=== PATIENT | female | born 1940 | race Two or more races ===

== ENCOUNTER 2019-07-24 17:30 | Inpatient (IN) | payer MEDICAID ==
[~2019-07-24] VITALS: Ht 167.6 cm; Wt 62.2 kg
--- NOTE | 2019-07-24 17:34 | Emergency Room Report ---
History of Present Illness General Chief Complaint: Combative, altered mental status Source: EMS Present Illness HPI 79-year-old female history of psychiatric disease dementia presents with combative behavior altered mental status refusing to take her meds x1 day no known aggravating relieving factors severity is moderate, constant patient presents for evaluation from the [facility] for admission and evaluation by a psychiatrist Allergies: Coded Allergies: PENICILLINS (Verified Allergy, Unknown, 07/24/19) Patient History Limited by: medical condition - dementia Past Medical History: see triage record Reviewed Nursing Documentation: PMH: Agreed; PSxH: Agreed Review of Systems All Other Systems: limited - dementia Physical Exam Sp02 EP Interpretation: reviewed, normal General Appearance: no apparent distress, alert Head: normocephalic, atraumatic Eyes: bilateral eye PERRL, bilateral eye EOMI ENT: uvula midline, dry mucus membranes Neck: supple, thyroid normal, supple/symm/no masses Respiratory: lungs clear, no respiratory distress, no retraction, no accessory muscle use Cardiovascular #1: normal peripheral pulses, regular rate, rhythm, no edema, no gallop, no murmur Gastrointestinal: non tender, soft, no guarding, no rebound Musculoskeletal: normal inspection Neurologic: alert, responsive Psychiatric: mood/affect normal Skin: no rash, warm/dry Medical Decision Making Diagnostic Impression: Primary Impression: Failure to thrive in adult Additional Impressions: Dehydration Altered mental status Qualified Codes: R41.82 - Altered mental status, unspecified ER Course 79-year-old female presents with failure to thrive, altered mental status We will admit patient, patient given 1 L of NS for fluid rehydration Patient admitted to Dr. Tapia Laboratory Tests Test 07/24/19 17:55 07/24/19 18:05 White Blood Count 8.8 K/UL (4.8-10.8) Red Blood Count 5.26 M/UL (4.20-5.40) Hemoglobin 14.4 G/DL (12.0-16.0) Hematocrit 44.3 % (37.0-47.0) Mean Corpuscular Volume 84 FL (80-99) Mean Corpuscular Hemoglobin 27.3 PG (27.0-31.0) Mean Corpuscular Hemoglobin Concent 32.5 G/DL (32.0-36.0) Red Cell Distribution Width 13.0 % (11.6-14.8) Platelet Count 173 K/UL (150-450) Mean Platelet Volume 10.7 FL (6.5-10.1) H Neutrophils (%) (Auto) 73.5 % (45.0-75.0) Lymphocytes (%) (Auto) 18.6 % (20.0-45.0) L Monocytes (%) (Auto) 6.1 % (1.0-10.0) Eosinophils (%) (Auto) 0.4 % (0.0-3.0) Basophils (%) (Auto) 1.4 % (0.0-2.0) Sodium Level 143 MMOL/L (136-145) Potassium Level 4.2 MMOL/L (3.5-5.1) Chloride Level 105 MMOL/L (98-107) Carbon Dioxide Level 28 MMOL/L (21-32) Anion Gap 10 mmol/L (5-15) Blood Urea Nitrogen 22 mg/dL (7-18) H Creatinine 0.6 MG/DL (0.55-1.30) Estimated Glomerular Filtration Rate > 60 mL/min (>60) Glucose Level 126 MG/DL (74-106) H Lactic Acid Level 1.40 mmol/L (0.4-2.0) Calcium Level 9.7 MG/DL (8.5-10.1) Phosphorus Level 3.3 MG/DL (2.5-4.9) Magnesium Level 1.9 MG/DL (1.8-2.4) Total Bilirubin 0.5 MG/DL (0.2-1.0) Aspartate Amino Transferase (AST) 23 U/L (15-37) Alanine Aminotransferase (ALT) 17 U/L (12-78) Alkaline Phosphatase 87 U/L (46-116) Creatine Kinase MB 2.7 NG/ML (0.0-3.6) Troponin I 0.035 ng/mL (0.000-0.056) Pro-B-Type Natriuretic Peptide 187 pg/mL (0-125) H Total Protein 7.5 G/DL (6.4-8.2) Albumin 3.7 G/DL (3.4-5.0) Globulin 3.8 g/dL Albumin/Globulin Ratio 1.0 (1.0-2.7) Lipase 87 U/L (73-393) Urine Color Yellow Urine Appearance Clear Urine pH 6 (4.5-8.0) Urine Specific [place] 1.015 (1.005-1.035) Urine Protein 1+ (NEGATIVE) H Urine Glucose (UA) Negative (NEGATIVE) Urine Ketones 3+ (NEGATIVE) H Urine Blood Negative (NEGATIVE) Urine Nitrite Negative (NEGATIVE) Urine Bilirubin Negative (NEGATIVE) Urine Urobilinogen Normal MG/DL (0.0-1.0) Urine Leukocyte Esterase Negative (NEGATIVE) Urine RBC 0-2 /HPF (0 - 2) Urine WBC 0 /HPF (0 - 2) Urine Squamous Epithelial Cells None /LPF (NONE/OCC) Urine Bacteria Few /HPF (NONE) EKG Diagnostic Results EKG Time: 18:24 EP Interpretation: NSR, rate 74, QTc 430, no acute ST elevations, left axis deviation Rhythm Strip Diag. Results Rhythm Strip Time: 18:33 EP Interpretation: yes Rate: 99 Rhythm: NSR, no PVC's, no ectopy Chest X-Ray Diagnostic Results Chest X-Ray Diagnostic Results : Chest X-Ray Ordered: Yes # of Views/Limited/Complete: 1 View Indication: Other - Preop EP Interpretation: Yes Interpretation: no consolidation, no effusion, no pneumothorax, no acute cardiopulmonary disease Impression: No acute disease Electronically Signed by: Charli Nicholas MD Disposition: ADMITTED INPATIENT Condition: Stable Charli Nicholas MD Jul 24, 2019 17:34
[2019-07-24 17:50] VITALS: BP 123/79
[2019-07-24] MEDS ORDERED: ACETAMINOPHEN120 MG RECTAL (18:26)
[2019-07-24] MEDS ORDERED: FLOMAX0.4 MG ORAL (18:26)
[2019-07-24] MEDS ORDERED: LEVSIN0.125 MG ORAL (18:26)
[2019-07-24] MEDS ORDERED: ZYPREXA10 MG ORAL (18:26)
[2019-07-24] MEDS ORDERED: MORPHINE S10 MG/5 ML ORAL (18:26)
[2019-07-24] MEDS ORDERED: BISACODYL5 MG RECTAL (18:26)
[2019-07-24] MEDS ORDERED: ATIVAN0.5 MG ORAL (18:26)
[2019-07-24] MEDS ORDERED: DONEPEZIL HCL5 M2 ORAL (18:26)
[2019-07-24] MEDS ORDERED: SINEMET 25-1001 EAC1 ORAL (18:26)
[2019-07-24 18:28] LABS: BASOPHILS % (AUTO) 1.4 % (0.0-2.0); EOSINOPHILS % (AUTO) 0.4 % (0.0-3.0); HEMATOCRIT 44.3 % (37.0-47.0); HEMOGLOBIN 14.4 G/DL (12.0-16.0); LYMPHOCYTES % (AUTO) 18.6 % (20.0-45.0); MEAN CORPUSCULAR VOLUME 84 FL (80-99); MONOCYTES % (AUTO) 6.1 % (1.0-10.0); NEUTROPHILS % (AUTO) 73.5 % (45.0-75.0); PLATELET COUNT 173 K/UL (150-450); RED BLOOD COUNT 5.26 M/UL (4.20-5.40); WHITE BLOOD COUNT 8.8 K/UL (4.8-10.8)
[2019-07-24 18:43] LABS: APPEARANCE,URINE CLEAR; BILIRUBIN, URINE NEGATIVE (NEGATIVE); COLOR,URINE YELLOW; GLUCOSE, URINE (UA) NEGATIVE (NEGATIVE); KETONES,URINE 3+ (NEGATIVE); LEUKOCYTE ESTERASE ,URINE NEGATIVE (NEGATIVE); NITRITE,URINE NEGATIVE (NEGATIVE); PH,URINE 6 (4.5-8.0); PROTEIN,URINE 1+ (NEGATIVE); UROBILINOGEN,URINE NORMAL MG/DL (0.0-1.0)
[2019-07-24 18:47] LABS: ANION GAP 10 mmol/L (5-15); BLOOD UREA NITROGEN 22 mg/dL (7-18); CALCIUM 9.7 MG/DL (8.5-10.1); CARBON DIOXIDE 28 MMOL/L (21-32); CHLORIDE 105 MMOL/L (98-107); CREATININE 0.6 MG/DL (0.55-1.30); POTASSIUM 4.2 MMOL/L (3.5-5.1); SODIUM 143 MMOL/L (136-145)
[2019-07-24 19:01] LABS: ALANINE AMINOTRANSFERASE 17 U/L (12-78); ALBUMIN 3.7 G/DL (3.4-5.0); ALKALINE PHOSPHATASE 87 U/L (46-116); ASPARTATE AMINO TRANSFERASE 23 U/L (15-37); BILIRUBIN,TOTAL 0.5 MG/DL (0.2-1.0); CKMB 2.7 NG/ML (0.0-3.6); PHOSPHORUS 3.3 MG/DL (2.5-4.9)
[2019-07-24] MEDS ORDERED: Zolpidem 5mg tab ORAL PRN (19:15)
[2019-07-24] MEDS ORDERED: Morphine Sulfate 2mg/ml Inj(IV/IM USE ONLY) IVP PRN (19:15)
[2019-07-24] MEDS ORDERED: LORazepam Inj 2mg/ml 1ml IV PRN (19:15)
[2019-07-24] MEDS ORDERED: Miralax 17gm pkt ORAL PRN (19:15)
[2019-07-24 19:30] VITALS: BP 119/82
[2019-07-24 20:45] VITALS: BP 122/80
[2019-07-24] MEDS: Heparin 5000 units/ml inj SUBQ SCH (21:00)
[2019-07-25] VITALS: BP 144/75
[2019-07-25 04:00] VITALS: BP 118/61
[2019-07-25 06:52] LABS: BASOPHILS % (AUTO) 0.9 % (0.0-2.0); EOSINOPHILS % (AUTO) 0.6 % (0.0-3.0); HEMATOCRIT 41.1 % (37.0-47.0); LYMPHOCYTES % (AUTO) 21.6 % (20.0-45.0); MEAN CORPUSCULAR VOLUME 83 FL (80-99); MONOCYTES % (AUTO) 5.8 % (1.0-10.0); NEUTROPHILS % (AUTO) 71.2 % (45.0-75.0); PLATELET COUNT 153 K/UL (150-450); RED BLOOD COUNT 4.98 M/UL (4.20-5.40); RED CELL DISTRIBUTION WIDTH 12.1 % (11.6-14.8); WHITE BLOOD COUNT 7.6 K/UL (4.8-10.8)
[2019-07-25 07:20] LABS: ALANINE AMINOTRANSFERASE 16 U/L (12-78); ALBUMIN 3.4 G/DL (3.4-5.0); ALBUMIN/GLOBULIN RATIO 0.9 (1.0-2.7); ALKALINE PHOSPHATASE 84 U/L (46-116); ANION GAP 15 mmol/L (5-15); ASPARTATE AMINO TRANSFERASE 16 U/L (15-37); BILIRUBIN,TOTAL 0.5 MG/DL (0.2-1.0); BLOOD UREA NITROGEN 19 mg/dL (7-18); CALCIUM 9.2 MG/DL (8.5-10.1); CARBON DIOXIDE 23 MMOL/L (21-32); CHLORIDE 108 MMOL/L (98-107); CHOLESTEROL 176 MG/DL (< 200); CREATININE 0.7 MG/DL (0.55-1.30); HDL CHOLESTEROL 40 MG/DL (40-60); POTASSIUM 3.3 MMOL/L (3.5-5.1); SODIUM 146 MMOL/L (136-145); TRIGLYCERIDES 51 MG/DL (30-150)
[2019-07-25 08:00] VITALS: BP 156/90
[2019-07-25] MEDS: Levodopa/Carbidopa 25/100 tab ORAL SCH ×3 (08:53→17:05)
[2019-07-25] MEDS: Tamsulosin 0.4mg cap ORAL SCH (09:00)
[2019-07-25] MEDS: OLANZapine 10mg tab ORAL SCH (09:00)
[2019-07-25] MEDS: Heparin 5000 units/ml inj SUBQ SCH ×2 (09:00→20:47)
[2019-07-25] MEDS: Donepezil 5mg Tab ORAL SCH (09:00)
[2019-07-25 12:00] VITALS: BP 156/75
[2019-07-25] MEDS ORDERED: Sodium Chloride for KCL Premix x 2hrs IV SCH ×2 (12:30→13:00)
--- NOTE | 2019-07-25 13:04 | Diagnostic Imaging Report ---
Indication: Chest pain, altered mental status Technique: XRAY Chest 1v Comparison: None Findings: Heart size and mediastinal contours are within normal limits for AP technique. There are atherosclerotic calcifications in the aortic arch. There is no focal airspace consolidation, pneumothorax or pleural effusion. Degenerative changes are noted in the spine. Osseous structures demonstrate no acute abnormality. Impression: No radiographic evidence of acute cardiopulmonary disease.
[2019-07-25 16:00] VITALS: BP 152/76
--- NOTE | 2019-07-25 17:34 | Consultation ---
History of Present Illness General Date patient seen: Jul 25, 2019 Chief Complaint: General Complaint Present Illness HPI 79-year-old female history of psychiatric disease, dementia, Parkinson disease presents with combative behavior, refusing to take her meds x1 day. Pt is admitted for further evaluation. Allergies: Coded Allergies: PENICILLINS (Verified Allergy, Unknown, 07/24/19) Medication History Scheduled Bisacodyl* (Dulcolax*), 10 MG RECTAL ONCE, (Reported) Carbidopa/Levodopa 25-100 Mg* (Sinemet 25-100 Mg Tablet*), 1 TAB ORAL THREE TIMES A DAY, (Reported) Donepezil Hcl* (Donepezil Hcl*), 5 MG ORAL DAILY, (Reported) Olanzapine* (Zyprexa*), 10 MG ORAL DAILY, (Reported) Tamsulosin HCl (Flomax), 0.4 MG ORAL DAILY, (Reported) Scheduled PRN Acetaminophen* (Tylenol*), 650 MG RECTAL Q4H PRN for Mild Pain/Temp > 100.5, ( Reported) Hyoscyamine Sulfate (Levsin), 0.125 MG ORAL EVERY 4 HOURS PRN for secretion, ( Reported) Lorazepam* (Ativan*), 0.5 MG ORAL EVERY 8 HOURS PRN for Agitation, (Reported) Morphine 10mg/5ml Oral Soln* (Morphine 10mg/5ml Oral Soln*), 0.25 ML ORAL Q4HR PRN for For Pain, (Reported) Morphine 10mg/5ml Oral Soln* (Morphine 10mg/5ml Oral Soln*), 0.5 ML ORAL Q4HR PRN for Pain Scale (6-10), (Reported) Morphine 10mg/5ml Oral Soln* (Morphine 10mg/5ml Oral Soln*), 1 ML ORAL Q4HR PRN for Pain Scale (6-10), (Reported) Patient History Healthcare decision maker Resuscitation status Full Code Advanced Directive on File Past Medical/Surgical History Past Medical/Surgical History: (1) Psychosis (2) Advanced dementia (3) Parkinson disease Review of Systems All Other Systems: negative except mentioned in HPI Physical Exam General Appearance: WD/WN, thin Lines, tubes and drains: peripheral HEENT: normocephalic, atraumatic Neck: non-tender, normal alignment Respiratory/Chest: chest wall non-tender, lungs clear Cardiovascular/Chest: normal peripheral pulses, regularly irregular Abdomen: normal bowel sounds, non tender Genitourinary/Rectal: normal genital exam, normal rectal exam Extremities: normal range of motion, non-tender Skin Exam: normal pigmentation 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8 81 17 118/73 (88) 97 Room Air Intake and Output 07/24/19 07/25/19 19:00 07:00 Intake Total 0 ml Balance 0 ml Intake Oral 0 ml # Voids 1 2 Laboratory Tests Test 07/24/19 17:55 07/24/19 18:05 07/25/19 05:31 White Blood Count 8.8 K/UL (4.8-10.8) 7.6 K/UL (4.8-10.8) Red Blood Count 5.26 M/UL (4.20-5.40) 4.98 M/UL (4.20-5.40) Hemoglobin 14.4 G/DL (12.0-16.0) 14.0 G/DL (12.0-16.0) Hematocrit 44.3 % (37.0-47.0) 41.1 % (37.0-47.0) Mean Corpuscular Volume 84 FL (80-99) 83 FL (80-99) Mean Corpuscular Hemoglobin 27.3 PG (27.0-31.0) 28.1 PG (27.0-31.0) Mean Corpuscular Hemoglobin Concent 32.5 G/DL (32.0-36.0) 34.1 G/DL (32.0-36.0) Red Cell Distribution Width 13.0 % (11.6-14.8) 12.1 % (11.6-14.8) Platelet Count 173 K/UL (150-450) 153 K/UL (150-450) Mean Platelet Volume 10.7 FL (6.5-10.1) H 9.0 FL (6.5-10.1) Neutrophils (%) (Auto) 73.5 % (45.0-75.0) 71.2 % (45.0-75.0) Lymphocytes (%) (Auto) 18.6 % (20.0-45.0) L 21.6 % (20.0-45.0) Monocytes (%) (Auto) 6.1 % (1.0-10.0) 5.8 % (1.0-10.0) Eosinophils (%) (Auto) 0.4 % (0.0-3.0) 0.6 % (0.0-3.0) Basophils (%) (Auto) 1.4 % (0.0-2.0) 0.9 % (0.0-2.0) Sodium Level 143 MMOL/L (136-145) 146 MMOL/L (136-145) H Potassium Level 4.2 MMOL/L (3.5-5.1) 3.3 MMOL/L (3.5-5.1) L Chloride Level 105 MMOL/L (98-107) 108 MMOL/L (98-107) H Carbon Dioxide Level 28 MMOL/L (21-32) 23 MMOL/L (21-32) Anion Gap 10 mmol/L (5-15) 15 mmol/L (5-15) Blood Urea Nitrogen 22 mg/dL (7-18) H 19 mg/dL (7-18) H Creatinine 0.6 MG/DL (0.55-1.30) 0.7 MG/DL (0.55-1.30) Estimat Glomerular Filtration Rate > 60 mL/min (>60) > 60 mL/min (>60) Glucose Level 126 MG/DL (74-106) H 97 MG/DL (74-106) Lactic Acid Level 1.40 mmol/L (0.4-2.0) Calcium Level 9.7 MG/DL (8.5-10.1) 9.2 MG/DL (8.5-10.1) Phosphorus Level 3.3 MG/DL (2.5-4.9) Magnesium Level 1.9 MG/DL (1.8-2.4) Total Bilirubin 0.5 MG/DL (0.2-1.0) 0.5 MG/DL (0.2-1.0) Aspartate Amino Transf (AST/SGOT) 23 U/L (15-37) 16 U/L (15-37) Alanine Aminotransferase (ALT/SGPT) 17 U/L (12-78) 16 U/L (12-78) Alkaline Phosphatase 87 U/L (46-116) 84 U/L (46-116) Creatine Kinase MB 2.7 NG/ML (0.0-3.6) Troponin I 0.035 ng/mL (0.000-0.056) Pro-B-Type Natriuretic Peptide 187 pg/mL (0-125) H Total Protein 7.5 G/DL (6.4-8.2) 7.4 G/DL (6.4-8.2) Albumin 3.7 G/DL (3.4-5.0) 3.4 G/DL (3.4-5.0) Globulin 3.8 g/dL 4.0 g/dL Albumin/Globulin Ratio 1.0 (1.0-2.7) 0.9 (1.0-2.7) L Lipase 87 U/L (73-393) Urine Color Yellow Urine Appearance Clear Urine pH 6 (4.5-8.0) Urine Specific [place] 1.015 (1.005-1.035) Urine Protein 1+ (NEGATIVE) H Urine Glucose (UA) Negative (NEGATIVE) Urine Ketones 3+ (NEGATIVE) H Urine Blood Negative (NEGATIVE) Urine Nitrite Negative (NEGATIVE) Urine Bilirubin Negative (NEGATIVE) Urine Urobilinogen Normal MG/DL (0.0-1.0) Urine Leukocyte Esterase Negative (NEGATIVE) Urine RBC 0-2 /HPF (0 - 2) Urine WBC 0 /HPF (0 - 2) Urine Squamous Epithelial Cells None /LPF (NONE/OCC) Urine Bacteria Few /HPF (NONE) Hemoglobin A1c 5.7 % (4.3-6.0) Triglycerides Level 51 MG/DL (30-150) Cholesterol Level 176 MG/DL (< 200) LDL Cholesterol 121 mg/dL (<100) H HDL Cholesterol 40 MG/DL (40-60) Cholesterol/HDL Ratio 4.4 (3.3-4.4) Thyroid Stimulating Hormone (TSH) 1.672 uiU/mL (0.358-3.740) Height (Feet): 5 Height (Inches): 5.00 Weight (Pounds): 145 Medications Current Medications Medications (Trade) Dose Ordered Sig/Julian Route PRN Reason Start Time Stop Time Status Last Admin Dose Admin Acetaminophen (Tylenol) 650 mg Q4H PRN ORAL fever 07/24/19 19:15 08/23/19 19:14 Carbidopa/Levodopa (Sinemet 25/) 1 tab THREE TIMES A DAY ORAL 07/25/19 09:00 08/24/19 08:59 07/25/19 17:05 Dextrose (Dextrose 50%) 25 ml Q30M PRN IV Hypoglycemia 07/24/19 19:15 10/22/19 19:14 Dextrose (Dextrose 50%) 50 ml Q30M PRN IV Hypoglycemia 07/24/19 19:15 10/22/19 19:14 Donepezil HCl (Aricept) 5 mg DAILY ORAL 07/25/19 09:00 08/24/19 08:59 Heparin Sodium (Porcine) (Heparin 5000 units/ml) 5,000 units EVERY 12 HOURS SUBQ 07/24/19 21:00 09/07/19 20:59 07/25/19 09:00 Lorazepam (Ativan 2mg/ml 1ml) 0.5 mg Q4H PRN IV For Anxiety 07/24/19 19:15 07/31/19 19:14 Morphine Sulfate (Morphine Sulfate) 1 mg Q4H PRN IVP For Pain 07/24/19 19:15 07/31/19 19:14 Olanzapine (ZyPREXA) 10 mg DAILY ORAL 07/25/19 09:00 09/08/19 08:59 Ondansetron HCl (Zofran) 4 mg Q6H PRN IVP Nausea & Vomiting 07/24/19 19:15 08/23/19 19:14 Polyethylene Glycol (Miralax) 17 gm HSPRN PRN ORAL Constipation 07/24/19 19:15 08/23/19 19:14 Tamsulosin HCl (Flomax) 0.4 mg DAILY ORAL 07/25/19 09:00 08/24/19 08:59 Zolpidem Tartrate (Ambien) 5 mg HSPRN PRN ORAL Insomnia 07/24/19 19:15 07/31/19 19:14 Assessment/Plan Problem List: (1) Combative behavior ICD Codes: R46.89 - Other symptoms and signs involving appearance and behavior SNOMED: 558964462 (2) Psychosis ICD Codes: F29 - Unspecified psychosis not due to a substance or known physiological condition SNOMED: 27317326 (3) Advanced dementia ICD Codes: F03.90 - Unspecified dementia without behavioral disturbance SNOMED: 70727982 (4) Parkinson disease ICD Codes: G20 - Parkinson's disease SNOMED: 45765390 (5) Failure to thrive in adult ICD Codes: R62.7 - Adult failure to thrive SNOMED: 173196425 Assessment/Plan: Haldol for acute agitation psychiatry evaluation adjust meds avoid polypharmacy needs swallow study DVT prophylaxis Harinder Elena MD Jul 25, 2019 17:34
[2019-07-25 20:00] VITALS: BP 151/79
--- NOTE | 2019-07-25 22:23 | History & Physical ---
History and Physical History & Physicial Rodney Tapia MD Jul 25, 2019 22:23
[2019-07-26] VITALS: BP 153/84
--- NOTE | 2019-07-26 | History and Physical Report ---
DATE OF ADMISSION: 07/24/2019 CHIEF COMPLAINT: Altered mental status. HISTORY OF PRESENT ILLNESS: This is a 79-year-old gentleman with past medical history of psychiatric disorder, dementia, Parkinson disease who presented to the hospital from [facility] after was found to be combative behavior, refused to take his medication. Shortly after initial evaluation in the emergency room, the patient was admitted to the hospital with altered mental status most likely secondary to toxic metabolic encephalopathy as well as failure to thrive. PAST MEDICAL HISTORY/PAST SURGICAL HISTORY: As above, history of psychiatric disorder, dementia, Parkinson disease. MEDICATIONS: At home, please refer to medication reconciliation. ALLERGIES: Penicillin. SOCIAL HISTORY: No smoking, alcohol, or drugs. FAMILY HISTORY: Noncontributory. REVIEW OF SYSTEMS: Mostly as above. The patient is altered, very poor historian. Denies any chest pain or shortness of breath. PHYSICAL EXAMINATION: VITAL SIGNS: On admission, temperature 98.8, pulse of 81, respirations 17, blood pressure 118/73, GENERAL: The patient is awake, responsive, no acute distress, but confused and disoriented. HEENT: Head and neck examination, pupils are equal and reactive to light. Extraocular movements intact. Neck was supple. No JVD. LUNGS: Good air entry. No wheezing or rales. HEART: S1 and S2. Regular rhythm. No gallops. ABDOMEN: Soft, nondistended, nontender. Positive bowel sounds. EXTREMITIES: No cyanosis, clubbing, or edema. NEUROLOGIC: Cranial nerves II through XII grossly normal. The patient moving all the extremities. Gait was not assessed due to the patient's status. RECTAL/GENITOURINARY: Refused and deferred. PSYCHIATRIC: Mood and affect is intact. LABORATORY DATA: On admission WBC of 8.8, hemoglobin 14, hematocrit 44, platelets is 173. Sodium 143, potassium 4.2, chloride 105, bicarb 28, BUN 22, creatinine 0.6, glucose is 126. Lactic acid is 1.4. Calcium is 9.7. Phosphorus is 3.3. Magnesium is 1.9. ALT 23, ALT of 17. Troponin 0.035. ProBNP of 187. Lipase is 87. UA is +1 protein, +3 ketones. The patient had a chest x-ray, no radiographic evidence of acute cardiopulmonary disease. ASSESSMENT: 1. Altered mental status, most likely secondary to toxic metabolic encephalopathy. 2. Combative behavior. 3. Advanced dementia. 4. Parkinson disease. 5. Failure to thrive. PLAN: 1. Admit the patient to medical floor. 2. We will follow up with psychiatry consultation. 3. Haldol as needed for agitation. 4. Resume home medication. 5. DVT prophylaxis. 6. Heparin subcutaneous. 7. We will follow up with the laboratory in the morning. Rodney Tapia M.D. DR: John JOB#: [id number] CC:
[2019-07-26 04:00] VITALS: BP 140/86
[2019-07-26 08:00] VITALS: BP 157/83
[2019-07-26] MEDS: OLANZapine 10mg tab ORAL SCH (08:48)
[2019-07-26] MEDS: Donepezil 5mg Tab ORAL SCH (08:48)
[2019-07-26] MEDS: Tamsulosin 0.4mg cap ORAL SCH (08:48)
[2019-07-26] MEDS: Levodopa/Carbidopa 25/100 tab ORAL SCH ×3 (08:48→17:32)
[2019-07-26] MEDS: Heparin 5000 units/ml inj SUBQ SCH ×2 (08:49→22:48)
[2019-07-26 11:56] VITALS: BP 130/64
[2019-07-26 16:00] VITALS: BP 138/72
--- NOTE | 2019-07-26 16:11 | Internal Med Progress Note ---
Subjective Date of Service: Jul 26, 2019 Physician Name SantaArturo Attending Physician Rodney Tapia MD Current Medications Medications (Trade) Dose Ordered Sig/Julian Route PRN Reason Start Time Stop Time Status Last Admin Dose Admin Acetaminophen (Tylenol) 650 mg Q4H PRN ORAL fever 07/24/19 19:15 08/23/19 19:14 Carbidopa/Levodopa (Sinemet 25/100) 1 tab THREE TIMES A DAY ORAL 07/25/19 09:00 08/24/19 08:59 07/26/19 08:48 Dextrose (Dextrose 50%) 25 ml Q30M PRN IV Hypoglycemia 07/24/19 19:15 10/22/19 19:14 Dextrose (Dextrose 50%) 50 ml Q30M PRN IV Hypoglycemia 07/24/19 19:15 10/22/19 19:14 Donepezil HCl (Aricept) 5 mg DAILY ORAL 07/25/19 09:00 08/24/19 08:59 07/26/19 08:48 Heparin Sodium (Porcine) (Heparin 5000 units/ml) 5,000 units EVERY 12 HOURS SUBQ 07/24/19 21:00 09/07/19 20:59 07/26/19 08:49 Lorazepam (Ativan 2mg/ml 1ml) 0.5 mg Q4H PRN IV For Anxiety 07/24/19 19:15 07/31/19 19:14 Morphine Sulfate (Morphine Sulfate) 1 mg Q4H PRN IVP For Pain 07/24/19 19:15 07/31/19 19:14 Olanzapine (ZyPREXA) 10 mg DAILY ORAL 07/25/19 09:00 09/08/19 08:59 07/26/19 08:48 Ondansetron HCl (Zofran) 4 mg Q6H PRN IVP Nausea & Vomiting 07/24/19 19:15 08/23/19 19:14 Polyethylene Glycol (Miralax) 17 gm HSPRN PRN ORAL Constipation 07/24/19 19:15 08/23/19 19:14 Tamsulosin HCl (Flomax) 0.4 mg DAILY ORAL 07/25/19 09:00 08/24/19 08:59 07/26/19 08:48 Zolpidem Tartrate (Ambien) 5 mg HSPRN PRN ORAL Insomnia 07/24/19 19:15 07/31/19 19:14 07/25/19 20:41 Allergies: Coded Allergies: PENICILLINS (Verified Allergy, Unknown, 07/24/19) ROS Limited/Unobtainable: Yes Subjective 79 YO M admitted with altered mental status. Cover for Int Med-Dr Tapia Objective Last Vital Signs Date Time Temp Pulse Resp B/P (MAP) Pulse Ox O2 Delivery O2 Flow Rate FiO2 07/26/19 11:56 98.2 64 18 130/64 (86) 95 07/26/19 08:22 Room Air Microbiology Date/Time Source Procedure Growth Status 07/24/19 17:55 Blood Blood Culture - Preliminary NO GROWTH AFTER 24 HOURS Resulted 07/24/19 17:40 Blood Blood Culture - Preliminary NO GROWTH AFTER 24 HOURS Resulted Intake and Output 07/25/19 07/26/19 19:00 07:00 Intake Total 560 ml 120 ml Balance 560 ml 120 ml Intake Oral 460 ml 120 ml IV Total 100 ml # Voids 2 2 Objective PHYSICAL EXAMINATION: GENERAL: The patient is awake, responsive, no acute distress, but confused and disoriented. HEENT: Head and neck examination, pupils are equal and reactive to light. Extraocular movements intact. Neck was supple. No JVD. LUNGS: Good air entry. No wheezing or rales. HEART: S1 and S2. Regular rhythm. No gallops. ABDOMEN: Soft, nondistended, nontender. Positive bowel sounds. EXTREMITIES: No cyanosis, clubbing, or edema. NEUROLOGIC: Cranial nerves II through XII grossly normal. The patient moving all the extremities. Gait was not assessed due to the patient's status. RECTAL/GENITOURINARY: Refused and deferred. PSYCHIATRIC: Mood and affect is intact Assessment/Plan Assessment/Plan ASSESSMENT: 1. Altered mental status, most likely secondary to toxic metabolic encephalopathy. 2. Combative behavior. 3. Advanced dementia. 4. Parkinson disease. 5. Failure to thrive. PLAN: 1. Admit the patient to medical floor. 2. We will follow up with psychiatry consultation. 3. Haldol as needed for agitation. 4. Resume home medication. 5. DVT prophylaxis. 6. Heparin subcutaneous. 7. We will follow up with the laboratory in the morning. Arturo Pratt MD Jul 26, 2019 16:11
[2019-07-26 20:00] VITALS: BP 158/78
[2019-07-27] VITALS (7 sets, daily range): BP systolic 117–158; BP diastolic 76–91
--- NOTE | 2019-07-27 04:00 | Consultation ---
DATE OF CONSULTATION: 07/26/2019 SUBJECTIVE: The patient is a 79-year-old female. I saw the patient on 07/26/2019 around 8 p.m. The patient was admitted for medical stabilization. The patient has a history of psychotic disorder, dementia, and Parkinson disease. She is admitted from [facility], I am familiar with this patient. The patient was refusing to take her medication, was combative and also has been having difficulty breathing. PAST PSYCHIATRIC HISTORY: Dementia and psychotic disorder. PAST MEDICAL HISTORY: Significant for Parkinson disease. ALLERGIES: Penicillin. SUBSTANCE ABUSE HISTORY: No known history of illicit drug use or alcohol. MENTAL STATUS EXAMINATION: The patient is a 79-year-old female who was asleep. She is unable to be engaged and answer the questions. She is on bilateral self-restraints and is attempting to hit people. Mood is agitated. Affect is flat. Thought process, there is a paucity of thought content. Thought content, no suicidal or homicidal ideation. Cognition is impaired. Insight and judgment are impaired. ASSESSMENT: [place] I Dementia with behavior disturbance. Major depressive disorder. [place] II Deferred. [place] III As above. [place] IV Low. PLAN: 1. We will discontinue the Zyprexa. 2. Discontinue the olanzapine. 3. Start the patient on Remeron 15 mg at bedtime. 4. Raise the head 30 degrees. Nguyễn Coburn M.D. DR: Viktor JOB#: [id number] CC:
[2019-07-27 07:10] LABS: ANION GAP 16 mmol/L (5-15); BLOOD UREA NITROGEN 25 mg/dL (7-18); CALCIUM 9.4 MG/DL (8.5-10.1); CARBON DIOXIDE 23 MMOL/L (21-32); CHLORIDE 110 MMOL/L (98-107); CREATININE 0.7 MG/DL (0.55-1.30); POTASSIUM 3.7 MMOL/L (3.5-5.1); SODIUM 149 MMOL/L (136-145)
[2019-07-27 07:30] LABS: BASOPHILS % (AUTO) 1.1 % (0.0-2.0); EOSINOPHILS % (AUTO) 0.2 % (0.0-3.0); HEMOGLOBIN 13.5 G/DL (12.0-16.0); LYMPHOCYTES % (AUTO) 19.3 % (20.0-45.0); MEAN CORPUSCULAR VOLUME 83 FL (80-99); NEUTROPHILS % (AUTO) 75.5 % (45.0-75.0); PLATELET COUNT 169 K/UL (150-450); RED BLOOD COUNT 4.83 M/UL (4.20-5.40); RED CELL DISTRIBUTION WIDTH 12.1 % (11.6-14.8); WHITE BLOOD COUNT 7.8 K/UL (4.8-10.8)
[2019-07-27] MEDS: Levodopa/Carbidopa 25/100 tab ORAL SCH ×3 (08:43→17:13)
[2019-07-27] MEDS: Heparin 5000 units/ml inj SUBQ SCH ×2 (08:43→22:31)
[2019-07-27] MEDS: Tamsulosin 0.4mg cap ORAL SCH (08:43)
--- NOTE | 2019-07-27 15:08 | Internal Med Progress Note ---
Subjective Date of Service: Jul 27, 2019 Physician Name SantaArturo Attending Physician Rodney Tapia MD Current Medications Medications (Trade) Dose Ordered Sig/Julian Route PRN Reason Start Time Stop Time Status Last Admin Dose Admin Acetaminophen (Tylenol) 650 mg Q4H PRN ORAL fever 07/24/19 19:15 08/23/19 19:14 Carbidopa/Levodopa (Sinemet 25/100) 1 tab THREE TIMES A DAY ORAL 07/25/19 09:00 08/24/19 08:59 07/27/19 13:38 Dextrose (Dextrose 50%) 25 ml Q30M PRN IV Hypoglycemia 07/24/19 19:15 10/22/19 19:14 Dextrose (Dextrose 50%) 50 ml Q30M PRN IV Hypoglycemia 07/24/19 19:15 10/22/19 19:14 Heparin Sodium (Porcine) (Heparin 5000 units/ml) 5,000 units EVERY 12 HOURS SUBQ 07/24/19 21:00 09/07/19 20:59 07/27/19 08:43 Lorazepam (Ativan 2mg/ml 1ml) 0.5 mg Q4H PRN IV For Anxiety 07/24/19 19:15 07/31/19 19:14 Mirtazapine (Remeron) 15 mg BEDTIME ORAL 07/27/19 21:00 10/25/19 20:59 Morphine Sulfate (Morphine Sulfate) 1 mg Q4H PRN IVP For Pain 07/24/19 19:15 07/31/19 19:14 Ondansetron HCl (Zofran) 4 mg Q6H PRN IVP Nausea & Vomiting 07/24/19 19:15 08/23/19 19:14 Polyethylene Glycol (Miralax) 17 gm HSPRN PRN ORAL Constipation 07/24/19 19:15 08/23/19 19:14 Tamsulosin HCl (Flomax) 0.4 mg DAILY ORAL 07/25/19 09:00 08/24/19 08:59 07/27/19 08:43 Zolpidem Tartrate (Ambien) 5 mg HSPRN PRN ORAL Insomnia 07/24/19 19:15 07/31/19 19:14 07/25/19 20:41 Allergies: Coded Allergies: PENICILLINS (Verified Allergy, Unknown, 07/24/19) Subjective 79 YO F with history of Lewey Body dementia, admitted with altered mental status and increased aggression. Cover for Int Kwan-Dr Tapia Objective Last Vital Signs Date Time Temp Pulse Resp B/P (MAP) Pulse Ox O2 Delivery O2 Flow Rate FiO2 07/27/19 12:00 97.5 87 19 157/84 (108) 97 07/27/19 09:00 Room Air Laboratory Tests Test 07/27/19 06:30 White Blood Count 7.8 K/UL (4.8-10.8) Red Blood Count 4.83 M/UL (4.20-5.40) Hemoglobin 13.5 G/DL (12.0-16.0) Hematocrit 40.0 % (37.0-47.0) Mean Corpuscular Volume 83 FL (80-99) Mean Corpuscular Hemoglobin 27.9 PG (27.0-31.0) Mean Corpuscular Hemoglobin Concent 33.7 G/DL (32.0-36.0) Red Cell Distribution Width 12.1 % (11.6-14.8) Platelet Count 169 K/UL (150-450) Mean Platelet Volume 9.1 FL (6.5-10.1) Neutrophils (%) (Auto) 75.5 % (45.0-75.0) H Lymphocytes (%) (Auto) 19.3 % (20.0-45.0) L Monocytes (%) (Auto) 4.0 % (1.0-10.0) Eosinophils (%) (Auto) 0.2 % (0.0-3.0) Basophils (%) (Auto) 1.1 % (0.0-2.0) Sodium Level 149 MMOL/L (136-145) H Potassium Level 3.7 MMOL/L (3.5-5.1) Chloride Level 110 MMOL/L (98-107) H Carbon Dioxide Level 23 MMOL/L (21-32) Anion Gap 16 mmol/L (5-15) H Blood Urea Nitrogen 25 mg/dL (7-18) H Creatinine 0.7 MG/DL (0.55-1.30) Estimat Glomerular Filtration Rate > 60 mL/min (>60) Glucose Level 122 MG/DL (74-106) H Calcium Level 9.4 MG/DL (8.5-10.1) Microbiology Date/Time Source Procedure Growth Status 07/24/19 17:55 Blood Blood Culture - Preliminary NO GROWTH AFTER 48 HOURS Resulted 07/24/19 17:40 Blood Blood Culture - Preliminary NO GROWTH AFTER 48 HOURS Resulted 07/24/19 20:40 Nasal Nares MRSA Culture - Final NO METHICILLIN RESISTANT STAPH AUREUS... Complete 07/24/19 20:40 Rectum - Final NO CARBAPENEM-RESISTANT ENTEROBACTERI... Complete 07/24/19 20:40 Rectum VRE Culture - Final NO VANCOMYCIN RESISTANT ENTEROCOCCUS ... Complete Intake and Output 07/26/19 07/27/19 19:00 07:00 # Voids 2 2 Objective PHYSICAL EXAMINATION: GENERAL: The patient is awake, responsive, no acute distress, but confused and disoriented. HEENT: Head and neck examination, pupils are equal and reactive to light. Extraocular movements intact. Neck was supple. No JVD. LUNGS: Good air entry. No wheezing or rales. HEART: S1 and S2. Regular rhythm. No gallops. ABDOMEN: Soft, nondistended, nontender. Positive bowel sounds. EXTREMITIES: No cyanosis, clubbing, or edema. NEUROLOGIC: Cranial nerves II through XII grossly normal. The patient moving all the extremities. Gait was not assessed due to the patient's status. RECTAL/GENITOURINARY: Refused and deferred. PSYCHIATRIC: Mood and affect is intact Assessment/Plan Assessment/Plan ASSESSMENT: 1. Altered mental status/encephalopathy. 2. Combative/aggressive behavior. 3. Lewey body dementia. 4. Parkinson disease. 5. Failure to thrive. PLAN: 1. Admit the patient to medical floor. 2. psychiatry consultation=Dr Coburn 3. Haldol as needed for agitation. 4. Resume home medication. 5. DVT prophylaxis. 6. Heparin subcutaneous. Arturo Pratt MD Jul 27, 2019 15:08
--- NOTE | 2019-07-27 16:57 | Pulmonology Progress Note ---
Assessment/Plan Problems: (1) Combative behavior (2) Failure to thrive in adult (3) Psychosis (4) Advanced dementia (5) Parkinson disease Assessment/Plan psych consult appreciated Zyprexa and Olanzpine were discontinued calorie count symptomatic treatment Subjective ROS Limited/Unobtainable: No Constitutional: Reports: no symptoms HEENT: Repors: no symptoms Allergies: Coded Allergies: PENICILLINS (Verified Allergy, Unknown, 07/24/19) Objective Last 24 Hour Vital Signs Date Time Temp Pulse Resp B/P (MAP) Pulse Ox O2 Delivery O2 Flow Rate FiO2 07/27/19 16:00 98.0 90 19 152/84 (106) 97 07/27/19 12:00 97.5 87 19 157/84 (108) 97 07/27/19 09:00 Room Air 07/27/19 08:00 98.9 80 17 149/88 (108) 96 07/27/19 03:47 98.5 90 17 125/91 (102) 96 07/27/19 00:00 98.0 84 17 158/83 (108) 91 07/26/19 20:46 Room Air 07/26/19 20:00 98.3 89 17 158/78 (104) 98 Intake and Output 07/26/19 07/27/19 19:00 07:00 # Voids 2 2 General Appearance: cachetic HEENT: normocephalic, atraumatic Respiratory/Chest: chest wall non-tender, lungs clear Cardiovascular: normal peripheral pulses, normal rate Abdomen: normal bowel sounds, non distended Extremities: no cyanosis Skin: no rash 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 Complete 07/24/19 20:40 Rectum - Final NO CARBAPENEM-RESISTANT ENTEROBACTERI... Complete 07/24/19 20:40 Rectum VRE Culture - Final NO VANCOMYCIN RESISTANT ENTEROCOCCUS ... Complete Laboratory Tests 07/27/19 06:30: White Blood Count 7.8, Red Blood Count 4.83, Hemoglobin 13.5, Hematocrit 40.0, Mean Corpuscular Volume 83, Mean Corpuscular Hemoglobin 27.9, Mean Corpuscular Hemoglobin Concent 33.7, Red Cell Distribution Width 12.1, Platelet Count 169, Mean Platelet Volume 9.1, Neutrophils (%) (Auto) 75.5H, Lymphocytes (%) (Auto) 19.3L, Monocytes (%) (Auto) 4.0, Eosinophils (%) (Auto) 0.2, Basophils (%) (Auto ) 1.1, Sodium Level 149H, Potassium Level 3.7, Chloride Level 110H, Carbon Dioxide Level 23, Anion Gap 16H, Blood Urea Nitrogen 25H, Creatinine 0.7, Estimat Glomerular Filtration Rate > 60, Glucose Level 122H, Calcium Level 9.4 Current Medications Medications (Trade) Dose Ordered Sig/Julian Route PRN Reason Start Time Stop Time Status Last Admin Dose Admin Acetaminophen (Tylenol) 650 mg Q4H PRN ORAL fever 07/24/19 19:15 08/23/19 19:14 Carbidopa/Levodopa (Sinemet 25/100) 1 tab THREE TIMES A DAY ORAL 07/25/19 09:00 08/24/19 08:59 07/27/19 13:38 Dextrose (Dextrose 50%) 25 ml Q30M PRN IV Hypoglycemia 07/24/19 19:15 10/22/19 19:14 Dextrose (Dextrose 50%) 50 ml Q30M PRN IV Hypoglycemia 07/24/19 19:15 10/22/19 19:14 Heparin Sodium (Porcine) (Heparin 5000 units/ml) 5,000 units EVERY 12 HOURS SUBQ 07/24/19 21:00 09/07/19 20:59 07/27/19 08:43 Lorazepam (Ativan 2mg/ml 1ml) 0.5 mg Q4H PRN IV For Anxiety 07/24/19 19:15 07/31/19 19:14 Mirtazapine (Remeron) 15 mg BEDTIME ORAL 07/27/19 21:00 10/25/19 20:59 Morphine Sulfate (Morphine Sulfate) 1 mg Q4H PRN IVP For Pain 07/24/19 19:15 07/31/19 19:14 Ondansetron HCl (Zofran) 4 mg Q6H PRN IVP Nausea & Vomiting 07/24/19 19:15 08/23/19 19:14 Polyethylene Glycol (Miralax) 17 gm HSPRN PRN ORAL Constipation 07/24/19 19:15 08/23/19 19:14 Tamsulosin HCl (Flomax) 0.4 mg DAILY ORAL 07/25/19 09:00 08/24/19 08:59 07/27/19 08:43 Zolpidem Tartrate (Ambien) 5 mg HSPRN PRN ORAL Insomnia 07/24/19 19:15 07/31/19 19:14 07/25/19 20:41 Harinder Elena MD Jul 27, 2019 16:57
[2019-07-28 04:00] VITALS: BP 160/102
[2019-07-28 08:00] VITALS: BP 150/90
[2019-07-28] MEDS: Tamsulosin 0.4mg cap ORAL SCH ×2 (08:41→08:52)
[2019-07-28] MEDS: Levodopa/Carbidopa 25/100 tab ORAL SCH ×5 (08:42→17:58)
[2019-07-28] MEDS: Heparin 5000 units/ml inj SUBQ SCH ×2 (08:43→20:19)
[2019-07-28 12:00] VITALS: BP 144/82
--- NOTE | 2019-07-28 15:23 | Pulmonology Progress Note ---
Assessment/Plan Problems: (1) Combative behavior (2) Failure to thrive in adult (3) Psychosis (4) Advanced dementia (5) Parkinson disease Assessment/Plan psych consult appreciated Zyprexa and Olanzpine were discontinued calorie count symptomatic treatment Subjective ROS Limited/Unobtainable: No Constitutional: Reports: no symptoms HEENT: Repors: no symptoms Respiratory: Reports: no symptoms Allergies: Coded Allergies: PENICILLINS (Verified Allergy, Unknown, 07/24/19) Objective Last 24 Hour Vital Signs Date Time Temp Pulse Resp B/P (MAP) Pulse Ox O2 Delivery O2 Flow Rate FiO2 07/28/19 12:00 98.3 78 19 144/82 (102) 97 07/28/19 09:00 Room Air 07/28/19 08:00 98.6 71 20 150/90 (110) 96 07/28/19 04:00 98.7 68 21 160/102 (121) 95 07/27/19 23:20 97.8 87 19 123/80 (94) 97 07/27/19 20:46 Room Air 07/27/19 20:00 98.0 84 19 117/76 (90) 95 07/27/19 16:00 98.0 90 19 152/84 (106) 97 Intake and Output 07/27/19 07/28/19 19:00 07:00 Intake Total 100 ml Balance 100 ml Other 100 ml # Voids 2 General Appearance: WD/WN HEENT: normocephalic, atraumatic Respiratory/Chest: chest wall non-tender, lungs clear Breasts: no masses Cardiovascular: normal peripheral pulses, regular rhythm Abdomen: normal bowel sounds Genitourinary: normal external genitalia 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 Current Medications Medications (Trade) Dose Ordered Sig/Julian Route PRN Reason Start Time Stop Time Status Last Admin Dose Admin Acetaminophen (Tylenol) 650 mg Q4H PRN ORAL fever 07/24/19 19:15 08/23/19 19:14 Carbidopa/Levodopa (Sinemet 25/100) 1 tab THREE TIMES A DAY ORAL 07/25/19 09:00 08/24/19 08:59 07/28/19 12:42 Dextrose (Dextrose 50%) 25 ml Q30M PRN IV Hypoglycemia 07/24/19 19:15 10/22/19 19:14 Dextrose (Dextrose 50%) 50 ml Q30M PRN IV Hypoglycemia 07/24/19 19:15 10/22/19 19:14 Heparin Sodium (Porcine) (Heparin 5000 units/ml) 5,000 units EVERY 12 HOURS SUBQ 07/24/19 21:00 09/07/19 20:59 07/28/19 08:43 Lorazepam (Ativan 2mg/ml 1ml) 0.5 mg Q4H PRN IV For Anxiety 07/24/19 19:15 07/31/19 19:14 Mirtazapine (Remeron) 15 mg BEDTIME ORAL 07/27/19 21:00 10/25/19 20:59 07/27/19 22:10 Morphine Sulfate (Morphine Sulfate) 1 mg Q4H PRN IVP For Pain 07/24/19 19:15 07/31/19 19:14 Ondansetron HCl (Zofran) 4 mg Q6H PRN IVP Nausea & Vomiting 07/24/19 19:15 08/23/19 19:14 Polyethylene Glycol (Miralax) 17 gm HSPRN PRN ORAL Constipation 07/24/19 19:15 08/23/19 19:14 Tamsulosin HCl (Flomax) 0.4 mg DAILY ORAL 07/25/19 09:00 08/24/19 08:59 07/27/19 08:43 Zolpidem Tartrate (Ambien) 5 mg HSPRN PRN ORAL Insomnia 07/24/19 19:15 07/31/19 19:14 07/25/19 20:41 Harinder Elena MD Jul 28, 2019 15:23
[2019-07-28 16:00] VITALS: BP 156/83
--- NOTE | 2019-07-28 18:46 | Internal Med Progress Note ---
Subjective Date of Service: Jul 28, 2019 Physician Name Arturo Pratt Attending Physician Rodney Tapia MD Current Medications Medications (Trade) Dose Ordered Sig/Julian Route PRN Reason Start Time Stop Time Status Last Admin Dose Admin Acetaminophen (Tylenol) 650 mg Q4H PRN ORAL fever 07/24/19 19:15 08/23/19 19:14 Carbidopa/Levodopa (Sinemet 25/100) 1 tab THREE TIMES A DAY ORAL 07/25/19 09:00 08/24/19 08:59 07/28/19 12:42 Dextrose (Dextrose 50%) 25 ml Q30M PRN IV Hypoglycemia 07/24/19 19:15 10/22/19 19:14 Dextrose (Dextrose 50%) 50 ml Q30M PRN IV Hypoglycemia 07/24/19 19:15 10/22/19 19:14 Heparin Sodium (Porcine) (Heparin 5000 units/ml) 5,000 units EVERY 12 HOURS SUBQ 07/24/19 21:00 09/07/19 20:59 07/28/19 08:43 Lorazepam (Ativan 2mg/ml 1ml) 0.5 mg Q4H PRN IV For Anxiety 07/24/19 19:15 07/31/19 19:14 Mirtazapine (Remeron) 15 mg BEDTIME ORAL 07/27/19 21:00 10/25/19 20:59 07/27/19 22:10 Morphine Sulfate (Morphine Sulfate) 1 mg Q4H PRN IVP For Pain 07/24/19 19:15 07/31/19 19:14 Ondansetron HCl (Zofran) 4 mg Q6H PRN IVP Nausea & Vomiting 07/24/19 19:15 08/23/19 19:14 Polyethylene Glycol (Miralax) 17 gm HSPRN PRN ORAL Constipation 07/24/19 19:15 08/23/19 19:14 Tamsulosin HCl (Flomax) 0.4 mg DAILY ORAL 07/25/19 09:00 08/24/19 08:59 07/27/19 08:43 Zolpidem Tartrate (Ambien) 5 mg HSPRN PRN ORAL Insomnia 07/24/19 19:15 07/31/19 19:14 07/25/19 20:41 Allergies: Coded Allergies: PENICILLINS (Verified Allergy, Unknown, 07/24/19) ROS Limited/Unobtainable: No Constitutional: Reports: no symptoms HEENT: Reports: no symptoms Cardiovascular: Reports: no symptoms Respiratory: Reports: no symptoms Gastrointestinal/Abdominal: Reports: no symptoms Genitourinary: Reports: no symptoms Neurologic/Psychiatric: Reports: no symptoms Subjective 79 YO F with history of Lewey Body dementia, admitted with altered mental status and increased aggression. Cover for Int Med-Dr Tapia Objective Last Vital Signs Date Time Temp Pulse Resp B/P (MAP) Pulse Ox O2 Delivery O2 Flow Rate FiO2 07/28/19 16:00 90 18 156/83 (107) 07/28/19 12:00 98.3 97 07/28/19 09:00 Room Air Intake and Output 07/27/19 07/28/19 19:00 07:00 Intake Total 100 ml Balance 100 ml Other 100 ml # Voids 2 Objective PHYSICAL EXAMINATION: GENERAL: The patient is awake, responsive, no acute distress, but confused and disoriented. HEENT: Head and neck examination, pupils are equal and reactive to light. Extraocular movements intact. Neck was supple. No JVD. LUNGS: Good air entry. No wheezing or rales. HEART: S1 and S2. Regular rhythm. No gallops. ABDOMEN: Soft, nondistended, nontender. Positive bowel sounds. EXTREMITIES: No cyanosis, clubbing, or edema. NEUROLOGIC: Cranial nerves II through XII grossly normal. The patient moving all the extremities. Gait was not assessed due to the patient's status. RECTAL/GENITOURINARY: Refused and deferred. PSYCHIATRIC: Mood and affect is intact Assessment/Plan Assessment/Plan ASSESSMENT: 1. Altered mental status/encephalopathy. 2. Combative/aggressive behavior. 3. Lewey body dementia. 4. Parkinson disease. 5. Failure to thrive. PLAN: 1. Admit the patient to medical floor. 2. psychiatry consultation=Dr Coburn 3. Haldol as needed for agitation. 4. Resume home medication. 5. DVT prophylaxis. 6. Heparin subcutaneous. Arturo Pratt MD Jul 28, 2019 18:46
[2019-07-28 20:00] VITALS: BP 166/93
[2019-07-29] VITALS: BP 156/105
--- NOTE | 2019-07-29 | Progress Note ---
DATE: 07/28/2019 SUBJECTIVE: The patient is sitting up, doing well, less agitated. Currently, he is on mirtazapine, more manageable. MENTAL STATUS EXAMINATION: The patient is alert and oriented times to self, disoriented. Mood is neutral. Affect is flat. Thought process is concrete. Thought content, no suicidal or homicidal ideation. PLAN: We will continue to follow and readjust the medications. Nguyễn Coburn M.D. DR: SHAYE JOB#: [id number] CC:
[2019-07-29 04:00] VITALS: BP 150/97
[2019-07-29 08:38] VITALS: BP 183/86
[2019-07-29] MEDS: Tamsulosin 0.4mg cap ORAL SCH ×2 (08:40→08:54)
[2019-07-29] MEDS: Levodopa/Carbidopa 25/100 tab ORAL SCH ×4 (08:40→17:49)
[2019-07-29] MEDS: Heparin 5000 units/ml inj SUBQ SCH ×2 (08:41→20:31)
--- NOTE | 2019-07-29 13:01 | Pulmonology Progress Note ---
Assessment/Plan Problems: (1) Combative behavior (2) Failure to thrive in adult (3) Psychosis (4) Advanced dementia (5) Parkinson disease Assessment/Plan psych consult appreciated Zyprexa and Olanzpine were discontinued calorie count symptomatic treatment dc planning Subjective ROS Limited/Unobtainable: No Constitutional: Reports: no symptoms HEENT: Repors: no symptoms Allergies: Coded Allergies: PENICILLINS (Verified Allergy, Unknown, 07/24/19) Objective Last 24 Hour Vital Signs Date Time Temp Pulse Resp B/P (MAP) Pulse Ox O2 Delivery O2 Flow Rate FiO2 07/29/19 09:08 183/86 07/29/19 09:00 Room Air 07/29/19 08:38 98.8 76 18 183/86 (118) 95 07/29/19 04:00 98.0 80 18 150/97 (114) 95 07/29/19 00:00 98.5 82 18 156/105 (122) 95 07/28/19 21:14 Room Air 07/28/19 20:00 98.5 80 18 166/93 (117) 07/28/19 16:00 90 18 156/83 (107) Intake and Output 07/28/19 07/29/19 19:00 07:00 Intake Total 240 ml Balance 240 ml Intake Oral 240 ml # Voids 2 General Appearance: WD/WN HEENT: normocephalic Respiratory/Chest: chest wall non-tender, lungs clear Cardiovascular: normal peripheral pulses, normal rate Abdomen: normal bowel sounds, soft, non tender Extremities: no cyanosis, no clubbing Current Medications Medications (Trade) Dose Ordered Sig/Julian Route PRN Reason Start Time Stop Time Status Last Admin Dose Admin Acetaminophen (Tylenol) 650 mg Q4H PRN ORAL fever 07/24/19 19:15 08/23/19 19:14 Carbidopa/Levodopa (Sinemet 25/100) 1 tab THREE TIMES A DAY ORAL 07/25/19 09:00 08/24/19 08:59 07/28/19 12:42 Clonidine HCl (Catapres Tab) 0.1 mg Q4H PRN ORAL For High Blood Pressure 07/29/19 09:00 10/27/19 08:59 07/29/19 09:08 Dextrose (Dextrose 50%) 25 ml Q30M PRN IV Hypoglycemia 07/24/19 19:15 10/22/19 19:14 Dextrose (Dextrose 50%) 50 ml Q30M PRN IV Hypoglycemia 07/24/19 19:15 10/22/19 19:14 Heparin Sodium (Porcine) (Heparin 5000 units/ml) 5,000 units EVERY 12 HOURS SUBQ 07/24/19 21:00 09/07/19 20:59 07/29/19 08:41 Lorazepam (Ativan 2mg/ml 1ml) 0.5 mg Q4H PRN IV For Anxiety 07/24/19 19:15 07/31/19 19:14 Mirtazapine (Remeron) 15 mg BEDTIME ORAL 07/27/19 21:00 10/25/19 20:59 07/28/19 20:19 Morphine Sulfate (Morphine Sulfate) 1 mg Q4H PRN IVP For Pain 07/24/19 19:15 07/31/19 19:14 Ondansetron HCl (Zofran) 4 mg Q6H PRN IVP Nausea & Vomiting 07/24/19 19:15 08/23/19 19:14 Polyethylene Glycol (Miralax) 17 gm HSPRN PRN ORAL Constipation 07/24/19 19:15 08/23/19 19:14 Tamsulosin HCl (Flomax) 0.4 mg DAILY ORAL 07/25/19 09:00 08/24/19 08:59 07/27/19 08:43 Zolpidem Tartrate (Ambien) 5 mg HSPRN PRN ORAL Insomnia 07/24/19 19:15 07/31/19 19:14 07/25/19 20:41 Harinder Elena MD Jul 29, 2019 13:01
--- NOTE | 2019-07-29 16:13 | Internal Med Progress Note ---
Subjective Date of Service: Jul 29, 2019 Physician Name Pratt,Arturo Attending Physician Rodney Tapia MD Current Medications Medications (Trade) Dose Ordered Sig/Julian Route PRN Reason Start Time Stop Time Status Last Admin Dose Admin Acetaminophen (Tylenol) 650 mg Q4H PRN ORAL fever 07/24/19 19:15 08/23/19 19:14 Carbidopa/Levodopa (Sinemet 25/100) 1 tab THREE TIMES A DAY ORAL 07/25/19 09:00 08/24/19 08:59 07/28/19 12:42 Clonidine HCl (Catapres Tab) 0.1 mg Q4H PRN ORAL For High Blood Pressure 07/29/19 09:00 10/27/19 08:59 07/29/19 09:08 Dextrose (Dextrose 50%) 25 ml Q30M PRN IV Hypoglycemia 07/24/19 19:15 10/22/19 19:14 Dextrose (Dextrose 50%) 50 ml Q30M PRN IV Hypoglycemia 07/24/19 19:15 10/22/19 19:14 Heparin Sodium (Porcine) (Heparin 5000 units/ml) 5,000 units EVERY 12 HOURS SUBQ 07/24/19 21:00 09/07/19 20:59 07/29/19 08:41 Lorazepam (Ativan 2mg/ml 1ml) 0.5 mg Q4H PRN IV For Anxiety 07/24/19 19:15 07/31/19 19:14 Mirtazapine (Remeron) 15 mg BEDTIME ORAL 07/27/19 21:00 10/25/19 20:59 07/28/19 20:19 Morphine Sulfate (Morphine Sulfate) 1 mg Q4H PRN IVP For Pain 07/24/19 19:15 07/31/19 19:14 Ondansetron HCl (Zofran) 4 mg Q6H PRN IVP Nausea & Vomiting 07/24/19 19:15 08/23/19 19:14 Polyethylene Glycol (Miralax) 17 gm HSPRN PRN ORAL Constipation 07/24/19 19:15 08/23/19 19:14 Tamsulosin HCl (Flomax) 0.4 mg DAILY ORAL 07/25/19 09:00 08/24/19 08:59 07/27/19 08:43 Zolpidem Tartrate (Ambien) 5 mg HSPRN PRN ORAL Insomnia 07/24/19 19:15 07/31/19 19:14 07/25/19 20:41 Allergies: Coded Allergies: PENICILLINS (Verified Allergy, Unknown, 07/24/19) ROS Limited/Unobtainable: No Constitutional: Reports: no symptoms HEENT: Reports: no symptoms Cardiovascular: Reports: no symptoms Respiratory: Reports: no symptoms Gastrointestinal/Abdominal: Reports: no symptoms Genitourinary: Reports: no symptoms Neurologic/Psychiatric: Reports: no symptoms Subjective 79 YO F with history of Lewey Body dementia, admitted with altered mental status and increased aggression. Cover for Int Med-Dr Tapia Objective Last Vital Signs Date Time Temp Pulse Resp B/P (MAP) Pulse Ox O2 Delivery O2 Flow Rate FiO2 07/29/19 09:08 183/86 07/29/19 09:00 Room Air 07/29/19 08:38 98.8 76 18 95 Intake and Output 07/28/19 07/29/19 19:00 07:00 Intake Total 240 ml Balance 240 ml Intake Oral 240 ml # Voids 2 Objective PHYSICAL EXAMINATION: GENERAL: The patient is awake, responsive, no acute distress, but confused and disoriented. HEENT: Head and neck examination, pupils are equal and reactive to light. Extraocular movements intact. Neck was supple. No JVD. LUNGS: Good air entry. No wheezing or rales. HEART: S1 and S2. Regular rhythm. No gallops. ABDOMEN: Soft, nondistended, nontender. Positive bowel sounds. EXTREMITIES: No cyanosis, clubbing, or edema. NEUROLOGIC: Cranial nerves II through XII grossly normal. The patient moving all the extremities. Gait was not assessed due to the patient's status. RECTAL/GENITOURINARY: Refused and deferred. PSYCHIATRIC: Mood and affect is intact Assessment/Plan Assessment/Plan ASSESSMENT: 1. Altered mental status/encephalopathy. 2. Combative/aggressive behavior. 3. Lewey body dementia. 4. Parkinson disease. 5. Failure to thrive. PLAN: 1. Admit the patient to medical floor. 2. psychiatry consultation=Dr Coburn 3. Haldol as needed for agitation. 4. Resume home medication. 5. DVT prophylaxis. 6. Heparin subcutaneous. 7. Discharge planning: [facility]; needs negative COVID 19 test prior Arturo Pratt MD Jul 29, 2019 16:13
[2019-07-29 17:48] VITALS: BP 150/72
[2019-07-29 20:16] VITALS: BP 149/78
[2019-07-30] VITALS: BP 151/64
--- NOTE | 2019-07-30 | Progress Note ---
DATE: 07/29/2019 SUBJECTIVE: The patient was not eating today and has been taking Remeron for the past couple of nights, much calmer, more manageable. Sleep and appetite is adequate. No behavior issues noted today. MENTAL STATUS EXAMINATION: The patient is alert, oriented times self. Mood is depressed. Affect is constricted. Congruent with mood. Thought process is concrete. Thought content, no suicidal or homicidal ideation. Cognition is impaired. Insight and judgment is impaired. ASSESSMENT: 1. Dementia with behavior disturbance. 2. Failure to thrive. PLAN: 1. Increase Remeron to 30 mg at bedtime. 2. Continue to follow and readjust the medication. Nguyễn Coburn M.D. DR: Slime JOB#: [id number] CC:
[2019-07-30 08:00] VITALS: BP 190/92
[2019-07-30] MEDS: Levodopa/Carbidopa 25/100 tab ORAL SCH ×4 (09:00→17:56)
[2019-07-30] MEDS: Tamsulosin 0.4mg cap ORAL SCH ×2 (09:00→09:27)
[2019-07-30] MEDS: Heparin 5000 units/ml inj SUBQ SCH ×2 (09:28→20:53)
[2019-07-30] MEDS: LORazepam Inj 2mg/ml 1ml IM PRN ×2 (10:38→17:03)
[2019-07-30 12:00] VITALS: BP 168/86
--- NOTE | 2019-07-30 12:09 | Internal Med Progress Note ---
Subjective Date of Service: Jul 30, 2019 Physician Name Arturo Pratt Attending Physician Rodney Tapia MD Current Medications Medications (Trade) Dose Ordered Sig/Julian Route PRN Reason Start Time Stop Time Status Last Admin Dose Admin Acetaminophen (Tylenol) 650 mg Q4H PRN ORAL fever 07/24/19 19:15 08/23/19 19:14 Carbidopa/Levodopa (Sinemet 25/100) 1 tab THREE TIMES A DAY ORAL 07/25/19 09:00 08/24/19 08:59 07/28/19 12:42 Clonidine HCl (Catapres TTS-1) 1 patch QWEEK TDERMAL 07/29/19 18:00 10/27/19 17:59 07/29/19 17:46 Clonidine HCl (Catapres Tab) 0.1 mg Q4H PRN ORAL For High Blood Pressure 07/29/19 09:00 10/27/19 08:59 07/29/19 09:08 Dextrose (Dextrose 50%) 25 ml Q30M PRN IV Hypoglycemia 07/24/19 19:15 10/22/19 19:14 Dextrose (Dextrose 50%) 50 ml Q30M PRN IV Hypoglycemia 07/24/19 19:15 10/22/19 19:14 Heparin Sodium (Porcine) (Heparin 5000 units/ml) 5,000 units EVERY 12 HOURS SUBQ 07/24/19 21:00 09/07/19 20:59 07/30/19 09:28 Lorazepam (Ativan 2mg/ml 1ml) 0.5 mg Q4H PRN IV For Anxiety 07/24/19 19:15 07/31/19 19:14 Lorazepam (Ativan 2mg/ml 1ml) 1 mg Q6H PRN IM Agitation 07/29/19 16:15 08/05/19 16:14 07/30/19 10:38 Mirtazapine (Remeron) 30 mg BEDTIME ORAL 07/30/19 21:00 10/28/19 20:59 Morphine Sulfate (Morphine Sulfate) 1 mg Q4H PRN IVP For Pain 07/24/19 19:15 07/31/19 19:14 Ondansetron HCl (Zofran) 4 mg Q6H PRN IVP Nausea & Vomiting 07/24/19 19:15 08/23/19 19:14 Polyethylene Glycol (Miralax) 17 gm HSPRN PRN ORAL Constipation 07/24/19 19:15 08/23/19 19:14 Tamsulosin HCl (Flomax) 0.4 mg DAILY ORAL 07/25/19 09:00 08/24/19 08:59 07/27/19 08:43 Zolpidem Tartrate (Ambien) 5 mg HSPRN PRN ORAL Insomnia 07/24/19 19:15 07/31/19 19:14 07/25/19 20:41 Allergies: Coded Allergies: PENICILLINS (Verified Allergy, Unknown, 07/24/19) ROS Limited/Unobtainable: No Constitutional: Reports: no symptoms HEENT: Reports: no symptoms Cardiovascular: Reports: no symptoms Respiratory: Reports: no symptoms Gastrointestinal/Abdominal: Reports: no symptoms Genitourinary: Reports: no symptoms Neurologic/Psychiatric: Reports: no symptoms Subjective 79 YO F with history of Lewey Body dementia, admitted with altered mental status and increased aggression. Cover for Int Med-Dr Tapia. Refusing to eat Objective Last Vital Signs Date Time Temp Pulse Resp B/P (MAP) Pulse Ox O2 Delivery O2 Flow Rate FiO2 07/30/19 09:00 Room Air 07/30/19 08:00 99.3 101 20 190/92 (124) 96 Intake and Output 07/29/19 07/30/19 19:00 07:00 # Voids 2 Objective PHYSICAL EXAMINATION: GENERAL: The patient is awake, responsive, no acute distress, but confused and disoriented. HEENT: Head and neck examination, pupils are equal and reactive to light. Extraocular movements intact. Neck was supple. No JVD. LUNGS: Good air entry. No wheezing or rales. HEART: S1 and S2. Regular rhythm. No gallops. ABDOMEN: Soft, nondistended, nontender. Positive bowel sounds. EXTREMITIES: No cyanosis, clubbing, or edema. NEUROLOGIC: Cranial nerves II through XII grossly normal. The patient moving all the extremities. Gait was not assessed due to the patient's status. RECTAL/GENITOURINARY: Refused and deferred. PSYCHIATRIC: Mood and affect is intact Assessment/Plan Assessment/Plan ASSESSMENT: 1. Altered mental status/encephalopathy. 2. Combative/aggressive behavior. 3. Lewey body dementia. 4. Parkinson disease. 5. Failure to thrive. 6. Anorexia; refusing to eat PLAN: 1. Admit the patient to medical floor. 2. psychiatry consultation=Dr Coburn 3. Haldol as needed for agitation. 4. Resume home medication. 5. DVT prophylaxis. 6. Heparin subcutaneous. 7. Discharge planning: [facility]; needs negative COVID 19 test prior 8. GI=[facility] for PEG Arturo Reyna MD Jul 30, 2019 12:09
--- NOTE | 2019-07-30 13:39 | Pulmonology Progress Note ---
Assessment/Plan Problems: (1) Combative behavior (2) Failure to thrive in adult (3) Psychosis (4) Advanced dementia (5) Parkinson disease Assessment/Plan doing better, eating better psych consult appreciated Zyprexa and Olanzpine were discontinued calorie count symptomatic treatment dc planning Subjective ROS Limited/Unobtainable: Yes Constitutional: Reports: no symptoms HEENT: Repors: no symptoms Allergies: Coded Allergies: PENICILLINS (Verified Allergy, Unknown, 07/24/19) Objective Last 24 Hour Vital Signs Date Time Temp Pulse Resp B/P (MAP) Pulse Ox O2 Delivery O2 Flow Rate FiO2 07/30/19 12:00 98.2 89 20 168/86 (113) 97 07/30/19 09:00 Room Air 07/30/19 08:00 99.3 101 20 190/92 (124) 96 07/30/19 04:00 97.3 85 20 95 07/30/19 00:00 98.1 71 20 151/64 (93) 95 07/29/19 20:16 97.9 82 20 149/78 (101) 96 07/29/19 20:07 Room Air 07/29/19 17:48 150/72 (98) 07/29/19 17:46 150/72 Intake and Output 07/29/19 07/30/19 19:00 07:00 # Voids 2 General Appearance: WD/WN HEENT: normocephalic, anicteric Cardiovascular: normal peripheral pulses, normal rate Abdomen: normal bowel sounds, no mass Extremities: no cyanosis Skin: no lesions Current Medications Medications (Trade) Dose Ordered Sig/Julian Route PRN Reason Start Time Stop Time Status Last Admin Dose Admin Acetaminophen (Tylenol) 650 mg Q4H PRN ORAL fever 07/24/19 19:15 08/23/19 19:14 Carbidopa/Levodopa (Sinemet 25/100) 1 tab THREE TIMES A DAY ORAL 07/25/19 09:00 08/24/19 08:59 07/28/19 12:42 Clonidine HCl (Catapres TTS-1) 1 patch QWEEK TDERMAL 07/29/19 18:00 10/27/19 17:59 07/29/19 17:46 Clonidine HCl (Catapres Tab) 0.1 mg Q4H PRN ORAL For High Blood Pressure 07/29/19 09:00 10/27/19 08:59 07/29/19 09:08 Dextrose (Dextrose 50%) 25 ml Q30M PRN IV Hypoglycemia 07/24/19 19:15 10/22/19 19:14 Dextrose (Dextrose 50%) 50 ml Q30M PRN IV Hypoglycemia 07/24/19 19:15 10/22/19 19:14 Heparin Sodium (Porcine) (Heparin 5000 units/ml) 5,000 units EVERY 12 HOURS SUBQ 07/24/19 21:00 09/07/19 20:59 07/30/19 09:28 Lorazepam (Ativan 2mg/ml 1ml) 0.5 mg Q4H PRN IV For Anxiety 07/24/19 19:15 07/31/19 19:14 Lorazepam (Ativan 2mg/ml 1ml) 1 mg Q6H PRN IM Agitation 07/29/19 16:15 08/05/19 16:14 07/30/19 10:38 Mirtazapine (Remeron) 30 mg BEDTIME ORAL 07/30/19 21:00 10/28/19 20:59 Morphine Sulfate (Morphine Sulfate) 1 mg Q4H PRN IVP For Pain 07/24/19 19:15 07/31/19 19:14 Ondansetron HCl (Zofran) 4 mg Q6H PRN IVP Nausea & Vomiting 07/24/19 19:15 08/23/19 19:14 Polyethylene Glycol (Miralax) 17 gm HSPRN PRN ORAL Constipation 07/24/19 19:15 08/23/19 19:14 Tamsulosin HCl (Flomax) 0.4 mg DAILY ORAL 07/25/19 09:00 08/24/19 08:59 07/27/19 08:43 Zolpidem Tartrate (Ambien) 5 mg HSPRN PRN ORAL Insomnia 07/24/19 19:15 07/31/19 19:14 07/25/19 20:41 Harinder Elena MD Jul 30, 2019 13:39
[2019-07-30 16:00] VITALS: BP 101/58
--- NOTE | 2019-07-30 16:44 | Consultation ---
DATE OF CONSULTATION: 07/30/2019 CONSULTING PHYSICIAN: Franky Mittal M.D. REFERRING PHYSICIAN: Rodney Tapia M.D. CHIEF COMPLAINT: Failure to thrive. HISTORY OF PRESENT ILLNESS: Most of the history is per chart. This is a 79-year-old speaking female, admitted to the hospital with failure to thrive. The patient has history of Parkinson disease, dementia, psychiatric disorder. GI consult was requested for evaluation for possible G-tube placement. PAST MEDICAL HISTORY: 1. History of psychiatric disorder. 2. Dementia. 3. Parkinson disease. ALLERGIES: To penicillin. MEDICATIONS: Please see medication reconciliation list. FAMILY HISTORY: Noncontributory. SOCIAL HISTORY: The patient has no history of tobacco, alcohol, or drug abuse. REVIEW OF SYSTEMS: Limited. PHYSICAL EXAMINATION: VITAL SIGNS: Temperature is 99.3, pulse is 101, respirations 20, blood pressure is 190/92. HEENT: Normocephalic, atraumatic. Sclerae anicteric. NECK: Supple. No adenopathy. CARDIOVASCULAR: Regular rate and rhythm. Plus S1 and S2. LUNGS: Clear to auscultation bilaterally. ABDOMEN: Soft, nontender. No rebound. No guarding. No peritoneal sign. EXTREMITIES: No cyanosis. No clubbing. No edema ASSESSMENT AND PLAN: This is a 79-year-old female with failure to thrive, dysphagia. Nurses mentioned to me that the patient through a reflow operator told them that she cannot swallow even her own saliva. I had a long discussion with daughter, . She agreed for the patient to have an endoscopy for evaluation of dysphagia, but in terms of G-tube placement, she stated that the patient in the past did not want to have a G-tube. She is going to go, talk to rest of the family and decide later. I want to thank, Dr. Rodney Tapia, for this kind referral. Franky Mittal M.D. DR: CHANDNI JOB#: [id number] CC: Rodney Tapia M.D.; Fax#: [phone]
[2019-07-30 20:00] VITALS: BP 114/61
--- NOTE | 2019-07-30 23:14 | Psych Consult Progress Note ---
Psychiatry Progress Note Psychiatry Progress Note Subjective the pt was more combative today agitated poor appetite Medications Current Medications Medications (Trade) Dose Ordered Sig/Julian Route PRN Reason Start Time Stop Time Status Last Admin Dose Admin Acetaminophen (Tylenol) 650 mg Q4H PRN ORAL fever 07/24/19 19:15 08/23/19 19:14 Carbidopa/Levodopa (Sinemet 25/100) 1 tab THREE TIMES A DAY ORAL 07/25/19 09:00 08/24/19 08:59 07/30/19 17:56 Clonidine HCl (Catapres TTS-1) 1 patch QWEEK TDERMAL 07/29/19 18:00 10/27/19 17:59 07/29/19 17:46 Clonidine HCl (Catapres Tab) 0.1 mg Q4H PRN ORAL For High Blood Pressure 07/29/19 09:00 10/27/19 08:59 07/30/19 13:44 Dextrose (Dextrose 50%) 25 ml Q30M PRN IV Hypoglycemia 07/24/19 19:15 10/22/19 19:14 Dextrose (Dextrose 50%) 50 ml Q30M PRN IV Hypoglycemia 07/24/19 19:15 10/22/19 19:14 Heparin Sodium (Porcine) (Heparin 5000 units/ml) 5,000 units EVERY 12 HOURS SUBQ 07/24/19 21:00 09/07/19 20:59 07/30/19 09:28 Lorazepam (Ativan 2mg/ml 1ml) 0.5 mg Q4H PRN IV For Anxiety 07/24/19 19:15 07/31/19 19:14 Lorazepam (Ativan 2mg/ml 1ml) 1 mg Q6H PRN IM Agitation 07/29/19 16:15 08/05/19 16:14 07/30/19 17:03 Mirtazapine (Remeron) 30 mg BEDTIME ORAL 07/30/19 21:00 10/28/19 20:59 Morphine Sulfate (Morphine Sulfate) 1 mg Q4H PRN IVP For Pain 07/24/19 19:15 07/31/19 19:14 Ondansetron HCl (Zofran) 4 mg Q6H PRN IVP Nausea & Vomiting 07/24/19 19:15 08/23/19 19:14 Polyethylene Glycol (Miralax) 17 gm HSPRN PRN ORAL Constipation 07/24/19 19:15 08/23/19 19:14 Tamsulosin HCl (Flomax) 0.4 mg DAILY ORAL 07/25/19 09:00 08/24/19 08:59 07/27/19 08:43 Zolpidem Tartrate (Ambien) 5 mg HSPRN PRN ORAL Insomnia 07/24/19 19:15 07/31/19 19:14 07/25/19 20:41 Neurological/Psychiatric: Reports: anxiety, emotional problems Allergies: Coded Allergies: PENICILLINS (Verified Allergy, Unknown, 07/24/19) Objective Data Height (Feet): 5 Height (Inches): 5.00 Weight (Pounds): 143 General Appearance: alert, confused, agitated Additional Comments: alert, oriented times self. Mood is depressed. Affect is constricted. Congruent with mood. Thought process is concrete. Thought content, no suicidal or homicidal ideation. Cognition is impaired. Insight and judgment is impaired. ASSESSMENT: 1. Dementia with behavior disturbance. 2. Failure to thrive. 3. psychotic do PLAN: 1. Increase Remeron to 30 mg at bedtime. 2. Continue to follow and readjust the medication. 3. zyprexa 2.5mg po qhs Nguyễn Coburn MD Jul 30, 2019 23:14
[2019-07-31] VITALS (10 sets, daily range): BP systolic 108–136; BP diastolic 65–80
[2019-07-31 06:49] LABS: BASOPHILS % (AUTO) 1.1 % (0.0-2.0); EOSINOPHILS % (AUTO) 0.7 % (0.0-3.0); HEMATOCRIT 43.9 % (37.0-47.0); HEMOGLOBIN 14.6 G/DL (12.0-16.0); LYMPHOCYTES % (AUTO) 25.2 % (20.0-45.0); MEAN CORPUSCULAR VOLUME 83 FL (80-99); MONOCYTES % (AUTO) 5.3 % (1.0-10.0); NEUTROPHILS % (AUTO) 67.8 % (45.0-75.0); PLATELET COUNT 176 K/UL (150-450); RED BLOOD COUNT 5.26 M/UL (4.20-5.40); WHITE BLOOD COUNT 6.8 K/UL (4.8-10.8)
[2019-07-31 07:07] LABS: ANION GAP 12 mmol/L (5-15); BLOOD UREA NITROGEN 34 mg/dL (7-18); CALCIUM 9.5 MG/DL (8.5-10.1); CARBON DIOXIDE 27 MMOL/L (21-32); CHLORIDE 113 MMOL/L (98-107); CREATININE 0.6 MG/DL (0.55-1.30); POTASSIUM 3.2 MMOL/L (3.5-5.1); SODIUM 151 MMOL/L (136-145)
[2019-07-31] MEDS: Heparin 5000 units/ml inj SUBQ SCH ×2 (09:00→21:51)
[2019-07-31] MEDS: Levodopa/Carbidopa 25/100 tab ORAL SCH ×3 (09:00→18:00)
[2019-07-31] MEDS: Tamsulosin 0.4mg cap ORAL SCH (09:00)
[2019-07-31] MEDS ORDERED: Propofol 200mg/20ml IV ONE (11:00)
[2019-07-31] MEDS ORDERED: Lidocaine 1% MPF 10mg/ml 5ml ONE (11:00)
[2019-07-31] MEDS ORDERED: LR 1000ml ONE (11:00)
[2019-07-31] MEDS ORDERED: NS 500ML IVPB ONE (11:05)
[2019-07-31] MEDS ORDERED: LR 1000ml 1,000 ML IVLG SCH (11:10)
--- NOTE | 2019-07-31 11:11 | Pre-Procedure Note/Attestation ---
Pre-Procedure Note/Attestation Complete Prior to Procedure Planned Procedure: not applicable Procedure Narrative: egd Indications for Procedure Pre-Operative Diagnosis: dysphagia Attestation I attest that I discussed the nature of the procedure; its benefits; risks and complications; and alternatives (and the risks and benefits of such alternatives ), prior to the procedure, with the patient (or the patient's legal service center representative). I attest that, if there was a reasonable possibility of needing a blood transfusion, the patient (or the patient's legal service center representative) was given the [facility] standardized written summary, pursuant to the [place] Blood Safety Act ([place] Health and Safety Code # 1645, as amended). I attest that I re-evaluated the patient just prior to the surgery and that there has been no change in the patient's H&P, except as documented below: Franky Mittal MD Jul 31, 2019 11:11
[2019-07-31] MEDS ORDERED: HYDROcodone/Acetamin 7.5/325 tab ORAL PRN (11:15)
[2019-07-31] MEDS ORDERED: HYDROcodone/Acetamin 5/325 tab ORAL PRN (11:15)
[2019-07-31] MEDS ORDERED: LORazepam Inj 2mg/ml 1ml IV PRN (11:15)
[2019-07-31] MEDS ORDERED: Atropine Sulfate 0.4mg/ml inj IVP PRN (11:15)
[2019-07-31] MEDS ORDERED: Hydromorphone 0.5mg/0.5ml inj IVP PRN (11:15)
[2019-07-31] MEDS ORDERED: fentaNYL 100 mcg/2 mL IV PRN (11:15)
[2019-07-31] MEDS ORDERED: Meperidine 25mg/0.5ml Inj (FOR RIGORS ONLY) IV PRN (11:15)
[2019-07-31] MEDS ORDERED: oxyCODONE HCL/Acetaminophen 5/325mg ORAL PRN (11:15)
[2019-07-31] MEDS ORDERED: DiphenhydrAMINE 50mg/ml Inj IVP PRN (11:15)
[2019-07-31] MEDS ORDERED: Midazolam 2mg/2ml Inj IVP PRN (11:15)
--- NOTE | 2019-07-31 11:17 | Endoscopy Procedure Note ---
Endoscopy Procedure Note General Indication for Procedure: dysphagia Procedures Performed: EGD Operative Findings/Diagnosis: gastritis Specimen: yes Pt Tolerated Procedure Well: Yes Estimated Blood Loss: none Anesthesia Anesthesiologist: will Anesthesia: MAC Inserted Devices Implant(s) used?: No GI Core Measures 50 yrs or older w/o bx or poly: Not Applicable 10yrs. F/U recommended: Not Applicable Franky Mittal MD Jul 31, 2019 11:17
--- NOTE | 2019-07-31 11:28 | Anethesia Preoperative Eval ---
Anesthesia Pre-op PMH/ROS General Date of Evaluation: Jul 31, 2019 Time of Evaluation: 10:47 Anesthesiologist: Kayla ASA Score: ASA 4 Mallampati Score Class I : Soft palate, uvula, fauces, pillars visible Class II: Soft palate, uvula, fauces visible Class III: Soft palate, base of uvula visible Class IV: Only hard plate visible Mallampati Classification: Class II Surgeon: Daxa Diagnosis: Abd Pain Surgical Procedure: EGD Anesthesia History: none Family History: no anesthesia problems Allergies: Coded Allergies: PENICILLINS (Verified Allergy, Unknown, 07/24/19) Medications: see eMAR Patient NPO?: Yes Past Medical History Cardiovascular: Reports: HTN Gastrointestinal/Genitourinary: Reports: other - UTI Neurologic/Psychiatric: Reports: dementia, other - Parkinson's, Encephalopathy Anesthesia Pre-op Phys. Exam Physician Exam Last Vital Signs Date Time Temp Pulse Resp B/P (MAP) Pulse Ox O2 Delivery O2 Flow Rate FiO2 07/31/19 08:00 97.7 67 20 129/66 (87) 97 07/30/19 21:20 Room Air Constitutional: NAD Neurologic: CN 2-12 intact Cardiovascular: RRR Respiratory: CTA Gastrointestinal: S/NT/ND Airway Exam Mallampati Score: Class II MO: limited ROM: limited Teeth: missing Anesthesia Pre-op A/P Labs Hematology Test 07/31/19 06:32 White Blood Count 6.8 K/UL (4.8-10.8) Red Blood Count 5.26 M/UL (4.20-5.40) Hemoglobin 14.6 G/DL (12.0-16.0) Hematocrit 43.9 % (37.0-47.0) Mean Corpuscular Volume 83 FL (80-99) Mean Corpuscular Hemoglobin 27.7 PG (27.0-31.0) Mean Corpuscular Hemoglobin Concent 33.2 G/DL (32.0-36.0) Red Cell Distribution Width 12.0 % (11.6-14.8) Platelet Count 176 K/UL (150-450) Mean Platelet Volume 9.6 FL (6.5-10.1) Neutrophils (%) (Auto) 67.8 % (45.0-75.0) Lymphocytes (%) (Auto) 25.2 % (20.0-45.0) Monocytes (%) (Auto) 5.3 % (1.0-10.0) Eosinophils (%) (Auto) 0.7 % (0.0-3.0) Basophils (%) (Auto) 1.1 % (0.0-2.0) Chemistry Test 07/31/19 06:32 Sodium Level 151 MMOL/L (136-145) H Potassium Level 3.2 MMOL/L (3.5-5.1) L Chloride Level 113 MMOL/L (98-107) H Carbon Dioxide Level 27 MMOL/L (21-32) Anion Gap 12 mmol/L (5-15) Blood Urea Nitrogen 34 mg/dL (7-18) H Creatinine 0.6 MG/DL (0.55-1.30) Estimat Glomerular Filtration Rate > 60 mL/min (>60) Glucose Level 111 MG/DL (74-106) H Calcium Level 9.5 MG/DL (8.5-10.1) Risk Assessment & Plan Assessment: ASA 4 Plan: TIVA Status Change Before Surgery: No Bridger Garza MD Jul 31, 2019 11:28
--- NOTE | 2019-07-31 11:41 | Immediate Post-Op Evaluation ---
Immediate Post-Op Evalulation Immediate Post-Op Evalulation Procedure: EGD Date of Evaluation: Jul 31, 2019 Time of Evaluation: 11:45 IV Fluids: 200 NS Blood Products: 0 Estimated Blood Loss: 2 Urinary Output: 0 Blood Pressure Systolic: 136 Blood Pressure Diastolic: 80 Pulse Rate: 66 Respiratory Rate: 16 O2 Sat by Pulse Oximetry: 100 Temperature (Fahrenheit): 97.1 Pain Score (1-10): 1 Nausea: No Vomiting: No Complications 0 Patient Status: awake, reacts, patent, none Hydration Status: adequate Bridger Garza MD Jul 31, 2019 11:41
--- NOTE | 2019-07-31 11:42 | 48 Hour Post Anesthesia Eval ---
Post Anesthesia Evaluation Procedure: EGD Date of Evaluation: Jul 31, 2019 Time of Evaluation: 14:12 Blood Pressure Systolic: 147 0: 72 Pulse Rate: 66 Respiratory Rate: 18 Temperature (Fahrenheit): 97.4 O2 Sat by Pulse Oximetry: 100 Airway: patent Nausea: No Vomiting: No Pain Intensity: 1 Hydration Status: adequate Cardiopulmonary Status: Stable Mental Status/LOC: patient returned to baseline Follow-up Care/Observations: 0 Post-Anesthesia Complications: 0 Follow-up care needed: N/A Bridger Garza MD Jul 31, 2019 11:42
--- NOTE | 2019-07-31 12:53 | Pulmonology Progress Note ---
Assessment/Plan Problems: (1) Combative behavior (2) Failure to thrive in adult (3) Psychosis (4) Advanced dementia (5) Parkinson disease Assessment/Plan doing better, eating better psych consult appreciated Zyprexa and Olanzpine were discontinued calorie count symptomatic treatment dc planning Subjective ROS Limited/Unobtainable: No Constitutional: Reports: no symptoms HEENT: Repors: no symptoms Respiratory: Reports: no symptoms Allergies: Coded Allergies: PENICILLINS (Verified Allergy, Unknown, 07/24/19) Objective Last 24 Hour Vital Signs Date Time Temp Pulse Resp B/P (MAP) Pulse Ox O2 Delivery O2 Flow Rate FiO2 07/31/19 12:05 97.0 62 15 129/65 100 Room Air 07/31/19 11:55 65 14 129/75 100 Simple Mask 6 07/31/19 11:45 65 14 132/72 100 Simple Mask 6 07/31/19 11:42 66 18 100 07/31/19 11:41 66 16 100 07/31/19 11:40 60 15 135/69 100 Simple Mask 6 07/31/19 11:35 97.1 62 15 136/80 100 Simple Mask 6 07/31/19 09:00 Room Air 07/31/19 08:00 97.7 67 20 129/66 (87) 97 07/31/19 04:42 98.7 84 18 116/65 (82) 96 07/31/19 00:07 98.7 68 18 108/68 (81) 96 07/30/19 21:20 Room Air 07/30/19 20:00 98.8 74 18 114/61 (78) 95 07/30/19 16:00 97.4 79 19 101/58 (72) 97 07/30/19 13:44 168/86 Intake and Output 07/30/19 07/31/19 19:00 07:00 Intake Total 720 ml 480 ml Balance 720 ml 480 ml Intake Oral 720 ml 480 ml # Voids 3 1 General Appearance: WD/WN HEENT: normocephalic, atraumatic Cardiovascular: normal peripheral pulses Abdomen: normal bowel sounds, soft, non tender Extremities: no cyanosis Skin: no rash Laboratory Tests 07/31/19 06:32: White Blood Count 6.8, Red Blood Count 5.26, Hemoglobin 14.6, Hematocrit 43.9, Mean Corpuscular Volume 83, Mean Corpuscular Hemoglobin 27.7, Mean Corpuscular Hemoglobin Concent 33.2, Red Cell Distribution Width 12.0, Platelet Count 176, Mean Platelet Volume 9.6, Neutrophils (%) (Auto) 67.8, Lymphocytes (%) (Auto) 25.2, Monocytes (%) (Auto) 5.3, Eosinophils (%) (Auto) 0.7, Basophils (%) (Auto ) 1.1, Sodium Level 151H, Potassium Level 3.2L, Chloride Level 113H, Carbon Dioxide Level 27, Anion Gap 12, Blood Urea Nitrogen 34H, Creatinine 0.6, Estimat Glomerular Filtration Rate > 60, Glucose Level 111H, Calcium Level 9.5 Current Medications Medications (Trade) Dose Ordered Sig/Julian Route PRN Reason Start Time Stop Time Status Last Admin Dose Admin Acetaminophen (Tylenol) 650 mg Q4H PRN ORAL fever 07/24/19 19:15 08/23/19 19:14 Acetaminophen/ Hydrocodone Bitart ([place] 5/325) 1 tab Q1H PRN ORAL Mild Pain (Pain Scale 1-3) 07/31/19 11:15 07/31/19 16:00 Acetaminophen/ Hydrocodone Bitart ([place] 7.5/325) 1 tab Q1H PRN ORAL Moderate Pain (Pain Scale 4-6) 07/31/19 11:15 07/31/19 18:00 Al Hydroxide/Mg Hydroxide (Mylanta) 15 ml Q1H PRN ORAL gi upset 07/31/19 11:15 07/31/19 18:00 Atropine Sulfate (Atropine 0.4mg/ ml) 0.5 mg Q5M PRN IVP HR<40 07/31/19 11:15 07/31/19 16:00 Carbidopa/Levodopa (Sinemet 25/100) 1 tab THREE TIMES A DAY ORAL 07/25/19 09:00 08/24/19 08:59 07/30/19 17:56 Clonidine HCl (Catapres TTS-1) 1 patch QWEEK TDERMAL 07/29/19 18:00 10/27/19 17:59 07/29/19 17:46 Clonidine HCl (Catapres Tab) 0.1 mg Q4H PRN ORAL For High Blood Pressure 07/29/19 09:00 10/27/19 08:59 07/30/19 13:44 Dextrose (Dextrose 50%) 25 ml Q30M PRN IV Hypoglycemia 07/24/19 19:15 10/22/19 19:14 Dextrose (Dextrose 50%) 50 ml Q30M PRN IV Hypoglycemia 07/24/19 19:15 10/22/19 19:14 Diphenhydramine HCl (Benadryl) 25 mg Q15M PRN IVP Itching 07/31/19 11:15 07/31/19 16:00 Fentanyl Citrate (Sublimaze 100 mcg/2 mL) 25 mcg Q10M PRN IV Moderate Pain (Pain Scale 4-6) 07/31/19 11:15 07/31/19 16:00 Heparin Sodium (Porcine) (Heparin 5000 units/ml) 5,000 units EVERY 12 HOURS SUBQ 07/24/19 21:00 09/07/19 20:59 07/30/19 09:28 Hydralazine HCl (Apresoline) 5 mg Q30M PRN IV SBP>160 / DBP>90 07/31/19 11:15 07/31/19 16:00 Hydromorphone HCl (Dilaudid) 0.5 mg Q15M PRN IVP Severe Pain (Pain Scale 7-10) 07/31/19 11:15 07/31/19 16:00 Lactated Ringer's 1,000 ml @ 10 mls/hr Q24H IVLG 07/31/19 11:10 07/31/19 18:00 Lorazepam (Ativan 2mg/ml 1ml) 0.5 mg Q4H PRN IV For Anxiety 07/24/19 19:15 07/31/19 19:14 Lorazepam (Ativan 2mg/ml 1ml) 1 mg Q15M PRN IV For Anxiety 07/31/19 11:15 07/31/19 16:00 Lorazepam (Ativan 2mg/ml 1ml) 1 mg Q6H PRN IM Agitation 07/29/19 16:15 08/05/19 16:14 07/30/19 17:03 Meperidine HCl (Demerol) 25 mg Q5M PRN IV SHIVERING.MAY REPEAT X 1 07/31/19 11:15 07/31/19 16:00 Midazolam HCl (Versed 2mg/2ml vial) 1 mg Q15M PRN IVP For Anxiety 07/31/19 11:15 07/31/19 16:00 Mirtazapine (Remeron) 30 mg BEDTIME ORAL 07/30/19 21:00 10/28/19 20:59 Morphine Sulfate (Morphine Sulfate) 1 mg Q4H PRN IVP For Pain 07/24/19 19:15 07/31/19 19:14 Olanzapine (ZyPREXA) 2.5 mg BEDTIME ORAL 07/31/19 21:00 09/14/19 20:59 Ondansetron HCl (Zofran) 4 mg Q1H PRN IVP Nausea & Vomiting 07/31/19 11:15 07/31/19 16:00 Ondansetron HCl (Zofran) 4 mg Q6H PRN IVP Nausea & Vomiting 07/24/19 19:15 08/23/19 19:14 Oxycodone/ Acetaminophen (Percocet 5-325) 1 tab Q1H PRN ORAL Severe Pain (Pain Scale 7-10) 07/31/19 11:15 07/31/19 16:00 Polyethylene Glycol (Miralax) 17 gm HSPRN PRN ORAL Constipation 07/24/19 19:15 08/23/19 19:14 Tamsulosin HCl (Flomax) 0.4 mg DAILY ORAL 07/25/19 09:00 08/24/19 08:59 07/27/19 08:43 Zolpidem Tartrate (Ambien) 5 mg HSPRN PRN ORAL Insomnia 07/24/19 19:15 07/31/19 19:14 07/25/19 20:41 Harinder Elena MD Jul 31, 2019 12:53
--- NOTE | 2019-07-31 15:45 | Procedure Note ---
DATE OF PROCEDURE: 07/31/2019 SURGEON: Franky Mittal M.D. PROCEDURE: Upper endoscopy with biopsy. ANESTHESIA: Per Dr. Stover. INSTRUMENT: Olympus adult flexible upper endoscope. INDICATION: Dysphagia. REASON FOR PROCEDURE: The procedure, risks, benefits, and possible consequences, including hemorrhage, aspiration, perforation and infection, and alternative treatments, were explained to the patient/legal guardian by Dr. Franky Mittal and the patient/legal guardian understood and accepted these risks. DESCRIPTION OF PROCEDURE: After informed consent was obtained and the patient was adequately sedated, Olympus upper endoscope was advanced from mouth into the second portion of the duodenum and retroflexion was performed in the stomach. The patient has evidence of mild atrophic gastritis. Random biopsy from antrum was obtained to rule out H. pylori infection. Otherwise, the rest of the colonoscopy examination grossly within normal limits. The patient tolerated the procedure without any complication. SUMMARY OF FINDINGS: Atrophic gastritis, status post biopsy. RECOMMENDATIONS: Follow up biopsy results and treat accordingly. I want to thank, Dr. Rodney Tapia, for this kind referral. Franky Mittal M.D. DR: FATOU JOB#: [id number] CC: Rodney Tapia M.D.; Fax#: [phone]
--- NOTE | 2019-07-31 18:07 | Internal Med Progress Note ---
Subjective Date of Service: Jul 31, 2019 Physician Name [place] Attending Physician Rodney Tapia MD Current Medications Medications (Trade) Dose Ordered Sig/Julian Route PRN Reason Start Time Stop Time Status Last Admin Dose Admin Acetaminophen (Tylenol) 650 mg Q4H PRN ORAL fever 07/24/19 19:15 08/23/19 19:14 Carbidopa/Levodopa (Sinemet 25/100) 1 tab THREE TIMES A DAY ORAL 07/25/19 09:00 08/24/19 08:59 07/30/19 17:56 Clonidine HCl (Catapres TTS-1) 1 patch QWEEK TDERMAL 07/29/19 18:00 10/27/19 17:59 07/29/19 17:46 Clonidine HCl (Catapres Tab) 0.1 mg Q4H PRN ORAL For High Blood Pressure 07/29/19 09:00 10/27/19 08:59 07/30/19 13:44 Dextrose (Dextrose 50%) 25 ml Q30M PRN IV Hypoglycemia 07/24/19 19:15 10/22/19 19:14 Dextrose (Dextrose 50%) 50 ml Q30M PRN IV Hypoglycemia 07/24/19 19:15 10/22/19 19:14 Heparin Sodium (Porcine) (Heparin 5000 units/ml) 5,000 units EVERY 12 HOURS SUBQ 07/24/19 21:00 09/07/19 20:59 07/30/19 09:28 Lorazepam (Ativan 2mg/ml 1ml) 0.5 mg Q4H PRN IV For Anxiety 07/24/19 19:15 07/31/19 19:14 Lorazepam (Ativan 2mg/ml 1ml) 1 mg Q6H PRN IM Agitation 07/29/19 16:15 08/05/19 16:14 07/30/19 17:03 Mirtazapine (Remeron) 30 mg BEDTIME ORAL 07/30/19 21:00 10/28/19 20:59 Morphine Sulfate (Morphine Sulfate) 1 mg Q4H PRN IVP For Pain 07/24/19 19:15 07/31/19 19:14 Olanzapine (ZyPREXA) 2.5 mg BEDTIME ORAL 07/31/19 21:00 09/14/19 20:59 Ondansetron HCl (Zofran) 4 mg Q6H PRN IVP Nausea & Vomiting 07/24/19 19:15 08/23/19 19:14 Polyethylene Glycol (Miralax) 17 gm HSPRN PRN ORAL Constipation 07/24/19 19:15 08/23/19 19:14 Tamsulosin HCl (Flomax) 0.4 mg DAILY ORAL 07/25/19 09:00 08/24/19 08:59 07/27/19 08:43 Zolpidem Tartrate (Ambien) 5 mg HSPRN PRN ORAL Insomnia 07/24/19 19:15 07/31/19 19:14 07/25/19 20:41 Allergies: Coded Allergies: PENICILLINS (Verified Allergy, Unknown, 07/24/19) ROS Limited/Unobtainable: No Constitutional: Reports: no symptoms HEENT: Reports: no symptoms Cardiovascular: Reports: no symptoms Respiratory: Reports: no symptoms Gastrointestinal/Abdominal: Reports: no symptoms Genitourinary: Reports: no symptoms Neurologic/Psychiatric: Reports: no symptoms Subjective 79 YO F with history of Lewey Body dementia, admitted with altered mental status and increased aggression. Cover for Int Med-Dr Tapia. Eating more. S/ P endoscopy 07/31/19 Objective Last Vital Signs Date Time Temp Pulse Resp B/P (MAP) Pulse Ox O2 Delivery O2 Flow Rate FiO2 07/31/19 16:00 98.2 64 19 129/66 (87) 97 07/31/19 12:05 Room Air 07/31/19 11:55 6 Laboratory Tests Test 07/31/19 06:32 White Blood Count 6.8 K/UL (4.8-10.8) Red Blood Count 5.26 M/UL (4.20-5.40) Hemoglobin 14.6 G/DL (12.0-16.0) Hematocrit 43.9 % (37.0-47.0) Mean Corpuscular Volume 83 FL (80-99) Mean Corpuscular Hemoglobin 27.7 PG (27.0-31.0) Mean Corpuscular Hemoglobin Concent 33.2 G/DL (32.0-36.0) Red Cell Distribution Width 12.0 % (11.6-14.8) Platelet Count 176 K/UL (150-450) Mean Platelet Volume 9.6 FL (6.5-10.1) Neutrophils (%) (Auto) 67.8 % (45.0-75.0) Lymphocytes (%) (Auto) 25.2 % (20.0-45.0) Monocytes (%) (Auto) 5.3 % (1.0-10.0) Eosinophils (%) (Auto) 0.7 % (0.0-3.0) Basophils (%) (Auto) 1.1 % (0.0-2.0) Sodium Level 151 MMOL/L (136-145) H Potassium Level 3.2 MMOL/L (3.5-5.1) L Chloride Level 113 MMOL/L (98-107) H Carbon Dioxide Level 27 MMOL/L (21-32) Anion Gap 12 mmol/L (5-15) Blood Urea Nitrogen 34 mg/dL (7-18) H Creatinine 0.6 MG/DL (0.55-1.30) Estimat Glomerular Filtration Rate > 60 mL/min (>60) Glucose Level 111 MG/DL (74-106) H Calcium Level 9.5 MG/DL (8.5-10.1) Intake and Output 07/30/19 07/31/19 19:00 07:00 Intake Total 720 ml 480 ml Balance 720 ml 480 ml Intake Oral 720 ml 480 ml # Voids 3 1 Objective PHYSICAL EXAMINATION: GENERAL: The patient is awake, responsive, no acute distress, but confused and disoriented. HEENT: Head and neck examination, pupils are equal and reactive to light. Extraocular movements intact. Neck was supple. No JVD. LUNGS: Good air entry. No wheezing or rales. HEART: S1 and S2. Regular rhythm. No gallops. ABDOMEN: Soft, nondistended, nontender. Positive bowel sounds. EXTREMITIES: No cyanosis, clubbing, or edema. NEUROLOGIC: Cranial nerves II through XII grossly normal. The patient moving all the extremities. Gait was not assessed due to the patient's status. RECTAL/GENITOURINARY: Refused and deferred. PSYCHIATRIC: Mood and affect is intact Assessment/Plan Assessment/Plan ASSESSMENT: 1. Altered mental status/encephalopathy. 2. Combative/aggressive behavior. 3. Lewey body dementia. 4. Parkinson disease. 5. Failure to thrive. 6. 07/31/19 EGD=gastritis PLAN: 1. Admit the patient to medical floor. 2. psychiatry consultation=Dr Coburn 3. Haldol as needed for agitation. 4. Resume home medication. 5. DVT prophylaxis. 6. Heparin subcutaneous. 7. Discharge planning: [facility]; needs negative COVID 19 test prior 8. start pantoprazole; GI=Arturo Curran MD Jul 31, 2019 18:07
--- NOTE | 2019-07-31 19:13 | Psych Consult Progress Note ---
Psychiatry Progress Note Psychiatry Progress Note Subjective the pt is on restraints. the pt is calmer today Medications Current Medications Medications (Trade) Dose Ordered Sig/Julian Route PRN Reason Start Time Stop Time Status Last Admin Dose Admin Acetaminophen (Tylenol) 650 mg Q4H PRN ORAL fever 07/24/19 19:15 08/23/19 19:14 Carbidopa/Levodopa (Sinemet 25/100) 1 tab THREE TIMES A DAY ORAL 07/25/19 09:00 08/24/19 08:59 07/30/19 17:56 Clonidine HCl (Catapres TTS-1) 1 patch QWEEK TDERMAL 07/29/19 18:00 10/27/19 17:59 07/29/19 17:46 Clonidine HCl (Catapres Tab) 0.1 mg Q4H PRN ORAL For High Blood Pressure 07/29/19 09:00 10/27/19 08:59 07/30/19 13:44 Dextrose (Dextrose 50%) 25 ml Q30M PRN IV Hypoglycemia 07/24/19 19:15 10/22/19 19:14 Dextrose (Dextrose 50%) 50 ml Q30M PRN IV Hypoglycemia 07/24/19 19:15 10/22/19 19:14 Heparin Sodium (Porcine) (Heparin 5000 units/ml) 5,000 units EVERY 12 HOURS SUBQ 07/24/19 21:00 09/07/19 20:59 07/30/19 09:28 Lorazepam (Ativan 2mg/ml 1ml) 0.5 mg Q4H PRN IV For Anxiety 07/24/19 19:15 07/31/19 19:14 Lorazepam (Ativan 2mg/ml 1ml) 1 mg Q6H PRN IM Agitation 07/29/19 16:15 08/05/19 16:14 07/30/19 17:03 Mirtazapine (Remeron) 30 mg BEDTIME ORAL 07/30/19 21:00 10/28/19 20:59 Morphine Sulfate (Morphine Sulfate) 1 mg Q4H PRN IVP For Pain 07/24/19 19:15 07/31/19 19:14 Olanzapine (ZyPREXA) 2.5 mg BEDTIME ORAL 07/31/19 21:00 09/14/19 20:59 Ondansetron HCl (Zofran) 4 mg Q6H PRN IVP Nausea & Vomiting 07/24/19 19:15 08/23/19 19:14 Polyethylene Glycol (Miralax) 17 gm HSPRN PRN ORAL Constipation 07/24/19 19:15 08/23/19 19:14 Potassium Chloride (K-Dur) 40 meq TWICE A DAY ORAL 07/31/19 18:15 08/02/19 08:00 Tamsulosin HCl (Flomax) 0.4 mg DAILY ORAL 07/25/19 09:00 08/24/19 08:59 07/27/19 08:43 Zolpidem Tartrate (Ambien) 5 mg HSPRN PRN ORAL Insomnia 07/24/19 19:15 07/31/19 19:14 07/25/19 20:41 Neurological/Psychiatric: Reports: anxiety, depressed, emotional problems Allergies: Coded Allergies: PENICILLINS (Verified Allergy, Unknown, 07/24/19) Objective Data Height (Feet): 5 Height (Inches): 6.00 Weight (Pounds): 142 General Appearance: WD/WN, no apparent distress, alert, confused Behavior Mannerisms: poor eye contact Mental Status Exam - Affect: constricted Speech: clear Mental Status Exam - Thought P: tangential, confusion, disorganized Mental Status Exam - Suicidal: not present Assessment/Plan [place] I: 1. Dementia with behavior disturbance. 2. Failure to thrive. 3. psychotic do Assessment/Plan: PLAN: 1. Increase Remeron to 30 mg at bedtime. 2. Continue to follow and readjust the medication. 3. zyprexa 2.5mg po qhs 4. dc restraints. Nguyễn Coburn MD Jul 31, 2019 19:13
[2019-08-01] VITALS: BP 124/75
[2019-08-01 04:00] VITALS: BP 111/63
[2019-08-01 07:06] LABS: ANION GAP 8 mmol/L (5-15); BLOOD UREA NITROGEN 38 mg/dL (7-18); CALCIUM 9.5 MG/DL (8.5-10.1); CARBON DIOXIDE 29 MMOL/L (21-32); CHLORIDE 112 MMOL/L (98-107); CREATININE 0.6 MG/DL (0.55-1.30); POTASSIUM 3.2 MMOL/L (3.5-5.1); SODIUM 149 MMOL/L (136-145)
[2019-08-01 07:23] LABS: BASOPHILS % (AUTO) 0.9 % (0.0-2.0); EOSINOPHILS % (AUTO) 1.2 % (0.0-3.0); HEMOGLOBIN 14.7 G/DL (12.0-16.0); MEAN CORPUSCULAR VOLUME 83 FL (80-99); MONOCYTES % (AUTO) 5.9 % (1.0-10.0); PLATELET COUNT 135 K/UL (150-450); RED BLOOD COUNT 5.29 M/UL (4.20-5.40); RED CELL DISTRIBUTION WIDTH 12.4 % (11.6-14.8); WHITE BLOOD COUNT 6.8 K/UL (4.8-10.8)
[2019-08-01 08:00] VITALS: BP 140/93
[2019-08-01] MEDS: Heparin 5000 units/ml inj SUBQ SCH ×2 (09:00→21:53)
[2019-08-01] MEDS: Tamsulosin 0.4mg cap ORAL SCH (10:32)
[2019-08-01] MEDS: Levodopa/Carbidopa 25/100 tab ORAL SCH ×3 (10:32→18:00)
--- NOTE | 2019-08-01 10:45 | General Progress Note ---
Assessment/Plan Problem List: (1) Psychosis ICD Codes: F29 - Unspecified psychosis not due to a substance or known physiological condition SNOMED: 34672437 (2) Advanced dementia ICD Codes: F03.90 - Unspecified dementia without behavioral disturbance SNOMED: 16133069 (3) Parkinson disease ICD Codes: G20 - Parkinson's disease SNOMED: 41891701 (4) Failure to thrive in adult ICD Codes: R62.7 - Adult failure to thrive SNOMED: 005334846 (5) Altered mental status ICD Codes: R41.82 - Altered mental status, unspecified SNOMED: 983344739 Qualifiers: Qualified Codes: R41.82 - Altered mental status, unspecified (6) Dehydration ICD Codes: E86.0 - Dehydration SNOMED: 45888301 (7) Combative behavior ICD Codes: R46.89 - Other symptoms and signs involving appearance and behavior SNOMED: 510091426 Assessment/Plan: s/p EGD atrophic gastritis refusing to take her meds will hold PEG plans for now fu psych recs Subjective Allergies: Coded Allergies: PENICILLINS (Verified Allergy, Unknown, 07/24/19) Objective Last 24 Hour Vital Signs Date Time Temp Pulse Resp B/P (MAP) Pulse Ox O2 Delivery O2 Flow Rate FiO2 08/01/19 08:00 97.8 72 18 140/93 (109) 99 08/01/19 04:00 98.1 75 18 111/63 (79) 95 08/01/19 00:00 98.1 80 18 124/75 (91) 95 07/31/19 21:00 Room Air 07/31/19 20:00 97.4 71 20 129/77 (94) 96 07/31/19 16:00 98.2 64 19 129/66 (87) 97 07/31/19 12:05 97.0 62 15 129/65 100 Room Air 07/31/19 11:55 65 14 129/75 100 Simple Mask 6 07/31/19 11:45 65 14 132/72 100 Simple Mask 6 07/31/19 11:42 66 18 100 07/31/19 11:41 66 16 100 07/31/19 11:40 60 15 135/69 100 Simple Mask 6 07/31/19 11:35 97.1 62 15 136/80 100 Simple Mask 6 Intake and Output 07/31/19 08/01/19 19:00 07:00 Intake Total 370 ml Balance 370 ml Intake Oral 120 ml IV Total 250 ml # Voids 1 # Bowel Movements 1 Laboratory Tests 08/01/19 06:05: White Blood Count 6.8, Red Blood Count 5.29, Hemoglobin 14.7, Hematocrit 44.0, Mean Corpuscular Volume 83, Mean Corpuscular Hemoglobin 27.8, Mean Corpuscular Hemoglobin Concent 33.4, Red Cell Distribution Width 12.4, Platelet Count 135L, Mean Platelet Volume 9.2, Neutrophils (%) (Auto) 70.0, Lymphocytes (%) (Auto) 22.0, Monocytes (%) (Auto) 5.9, Eosinophils (%) (Auto) 1.2, Basophils (%) (Auto ) 0.9, Sodium Level 149H, Potassium Level 3.2L, Chloride Level 112H, Carbon Dioxide Level 29, Anion Gap 8, Blood Urea Nitrogen 38H, Creatinine 0.6, Estimat Glomerular Filtration Rate > 60, Glucose Level 117H, Calcium Level 9.5 Height (Feet): 5 Height (Inches): 6.00 Weight (Pounds): 142 General Appearance: alert EENT: normal ENT inspection Neck: supple Cardiovascular: normal rate Respiratory/Chest: decreased breath sounds Abdomen: normal bowel sounds, non tender, soft Extremities: non-tender Franky Mittal MD Aug 01, 2019 10:45
[2019-08-01 12:00] VITALS: BP 158/81
--- NOTE | 2019-08-01 13:32 | Pulmonology Progress Note ---
Assessment/Plan Problems: (1) Combative behavior (2) Failure to thrive in adult (3) Psychosis (4) Advanced dementia (5) Parkinson disease Assessment/Plan Na is high renal evaluation requested doing better, eating better calorie count symptomatic treatment dc planning Subjective ROS Limited/Unobtainable: No Constitutional: Reports: no symptoms HEENT: Repors: no symptoms Allergies: Coded Allergies: PENICILLINS (Verified Allergy, Unknown, 07/24/19) Objective Last 24 Hour Vital Signs Date Time Temp Pulse Resp B/P (MAP) Pulse Ox O2 Delivery O2 Flow Rate FiO2 08/01/19 12:00 97.7 75 18 158/81 (106) 96 08/01/19 09:00 Room Air 08/01/19 08:00 97.8 72 18 140/93 (109) 99 08/01/19 04:00 98.1 75 18 111/63 (79) 95 08/01/19 00:00 98.1 80 18 124/75 (91) 95 07/31/19 21:00 Room Air 07/31/19 20:00 97.4 71 20 129/77 (94) 96 07/31/19 16:00 98.2 64 19 129/66 (87) 97 Intake and Output 07/31/19 08/01/19 19:00 07:00 Intake Total 370 ml Balance 370 ml Intake Oral 120 ml IV Total 250 ml # Voids 1 # Bowel Movements 1 General Appearance: cachetic HEENT: normocephalic, atraumatic Respiratory/Chest: chest wall non-tender, lungs clear, normal breath sounds Cardiovascular: regular rhythm Abdomen: normal bowel sounds, no organomegaly, no scars Extremities: no clubbing Skin: no rash Microbiology Date/Time Source Procedure Growth Status 07/29/19 18:00 Nasopharynx Coronavirus COVID-19 PCR ([facility]) - Final Complete Laboratory Tests 08/01/19 06:05: White Blood Count 6.8, Red Blood Count 5.29, Hemoglobin 14.7, Hematocrit 44.0, Mean Corpuscular Volume 83, Mean Corpuscular Hemoglobin 27.8, Mean Corpuscular Hemoglobin Concent 33.4, Red Cell Distribution Width 12.4, Platelet Count 135L, Mean Platelet Volume 9.2, Neutrophils (%) (Auto) 70.0, Lymphocytes (%) (Auto) 22.0, Monocytes (%) (Auto) 5.9, Eosinophils (%) (Auto) 1.2, Basophils (%) (Auto ) 0.9, Sodium Level 149H, Potassium Level 3.2L, Chloride Level 112H, Carbon Dioxide Level 29, Anion Gap 8, Blood Urea Nitrogen 38H, Creatinine 0.6, Estimat Glomerular Filtration Rate > 60, Glucose Level 117H, Calcium Level 9.5 Current Medications Medications (Trade) Dose Ordered Sig/Julian Route PRN Reason Start Time Stop Time Status Last Admin Dose Admin Acetaminophen (Tylenol) 650 mg Q4H PRN ORAL fever 07/24/19 19:15 08/23/19 19:14 Carbidopa/Levodopa (Sinemet ) 1 tab THREE TIMES A DAY ORAL 07/25/19 09:00 08/24/19 08:59 08/01/19 10:32 Clonidine HCl (Catapres TTS-1) 1 patch QWEEK TDERMAL 07/29/19 18:00 10/27/19 17:59 07/29/19 17:46 Clonidine HCl (Catapres Tab) 0.1 mg Q4H PRN ORAL For High Blood Pressure 07/29/19 09:00 10/27/19 08:59 07/30/19 13:44 Dextrose (Dextrose 50%) 25 ml Q30M PRN IV Hypoglycemia 07/24/19 19:15 10/22/19 19:14 Dextrose (Dextrose 50%) 50 ml Q30M PRN IV Hypoglycemia 07/24/19 19:15 10/22/19 19:14 Heparin Sodium (Porcine) (Heparin 5000 units/ml) 5,000 units EVERY 12 HOURS SUBQ 07/24/19 21:00 09/07/19 20:59 07/31/19 21:51 Lorazepam (Ativan 2mg/ml 1ml) 1 mg Q6H PRN IM Agitation 07/29/19 16:15 08/05/19 16:14 07/30/19 17:03 Mirtazapine (Remeron) 30 mg BEDTIME ORAL 07/30/19 21:00 10/28/19 20:59 Olanzapine (ZyPREXA) 2.5 mg BEDTIME ORAL 07/31/19 21:00 09/14/19 20:59 Ondansetron HCl (Zofran) 4 mg Q6H PRN IVP Nausea & Vomiting 07/24/19 19:15 08/23/19 19:14 Polyethylene Glycol (Miralax) 17 gm HSPRN PRN ORAL Constipation 07/24/19 19:15 08/23/19 19:14 Potassium Chloride (K-Dur) 40 meq TWICE A DAY ORAL 07/31/19 18:15 08/02/19 08:00 08/01/19 10:32 Tamsulosin HCl (Flomax) 0.4 mg DAILY ORAL 07/25/19 09:00 08/24/19 08:59 08/01/19 10:32 Harinder Elena MD Aug 01, 2019 13:32
[2019-08-01 16:00] VITALS: BP 164/83
[2019-08-01 20:00] VITALS: BP 150/90
--- NOTE | 2019-08-01 21:39 | Psych Consult Progress Note ---
Psychiatry Progress Note Psychiatry Progress Note Medications Current Medications Medications (Trade) Dose Ordered Sig/Julian Route PRN Reason Start Time Stop Time Status Last Admin Dose Admin Acetaminophen (Tylenol) 650 mg Q4H PRN ORAL fever 07/24/19 19:15 08/23/19 19:14 Carbidopa/Levodopa (Sinemet 25/100) 1 tab THREE TIMES A DAY ORAL 07/25/19 09:00 08/24/19 08:59 08/01/19 10:32 Clonidine HCl (Catapres TTS-1) 1 patch QWEEK TDERMAL 07/29/19 18:00 10/27/19 17:59 07/29/19 17:46 Clonidine HCl (Catapres Tab) 0.1 mg Q4H PRN ORAL For High Blood Pressure 07/29/19 09:00 10/27/19 08:59 07/30/19 13:44 Dextrose (Dextrose 50%) 25 ml Q30M PRN IV Hypoglycemia 07/24/19 19:15 10/22/19 19:14 Dextrose (Dextrose 50%) 50 ml Q30M PRN IV Hypoglycemia 07/24/19 19:15 10/22/19 19:14 Heparin Sodium (Porcine) (Heparin 5000 units/ml) 5,000 units EVERY 12 HOURS SUBQ 07/24/19 21:00 09/07/19 20:59 07/31/19 21:51 Lorazepam (Ativan 2mg/ml 1ml) 1 mg Q6H PRN IM Agitation 07/29/19 16:15 08/05/19 16:14 07/30/19 17:03 Mirtazapine (Remeron) 30 mg BEDTIME ORAL 07/30/19 21:00 10/28/19 20:59 Olanzapine (ZyPREXA) 2.5 mg BEDTIME ORAL 07/31/19 21:00 09/14/19 20:59 Ondansetron HCl (Zofran) 4 mg Q6H PRN IVP Nausea & Vomiting 07/24/19 19:15 08/23/19 19:14 Polyethylene Glycol (Miralax) 17 gm HSPRN PRN ORAL Constipation 07/24/19 19:15 08/23/19 19:14 Potassium Chloride (K-Dur) 40 meq TWICE A DAY ORAL 07/31/19 18:15 08/02/19 08:00 08/01/19 10:32 Tamsulosin HCl (Flomax) 0.4 mg DAILY ORAL 07/25/19 09:00 08/24/19 08:59 08/01/19 10:32 Allergies: Coded Allergies: PENICILLINS (Verified Allergy, Unknown, 07/24/19) Objective Data Height (Feet): 5 Height (Inches): 6.00 Weight (Pounds): 142 Assessment/Plan Assessment/Plan: PLAN: 1. Increase Remeron to 30 mg at bedtime. 2. Continue to follow and readjust the medication. 3. zyprexa 2.5mg po qhs 4. dc restraints. Nguyễn Coburn MD Aug 01, 2019 21:39
--- NOTE | 2019-08-01 23:27 | Internal Med Progress Note ---
Subjective Physician Name Rodney Tapia Attending Physician Rodney Tapia MD Current Medications Medications (Trade) Dose Ordered Sig/Julian Route PRN Reason Start Time Stop Time Status Last Admin Dose Admin Acetaminophen (Tylenol) 650 mg Q4H PRN ORAL fever 07/24/19 19:15 08/23/19 19:14 Carbidopa/Levodopa (Sinemet 25/100) 1 tab THREE TIMES A DAY ORAL 07/25/19 09:00 08/24/19 08:59 08/01/19 10:32 Clonidine HCl (Catapres TTS-1) 1 patch QWEEK TDERMAL 07/29/19 18:00 10/27/19 17:59 07/29/19 17:46 Clonidine HCl (Catapres Tab) 0.1 mg Q4H PRN ORAL For High Blood Pressure 07/29/19 09:00 10/27/19 08:59 07/30/19 13:44 Dextrose (Dextrose 50%) 25 ml Q30M PRN IV Hypoglycemia 07/24/19 19:15 10/22/19 19:14 Dextrose (Dextrose 50%) 50 ml Q30M PRN IV Hypoglycemia 07/24/19 19:15 10/22/19 19:14 Heparin Sodium (Porcine) (Heparin 5000 units/ml) 5,000 units EVERY 12 HOURS SUBQ 07/24/19 21:00 09/07/19 20:59 07/31/19 21:51 Lorazepam (Ativan 2mg/ml 1ml) 1 mg Q6H PRN IM Agitation 07/29/19 16:15 08/05/19 16:14 07/30/19 17:03 Mirtazapine (Remeron) 30 mg BEDTIME ORAL 07/30/19 21:00 10/28/19 20:59 Olanzapine (ZyPREXA) 2.5 mg BEDTIME ORAL 07/31/19 21:00 09/14/19 20:59 Ondansetron HCl (Zofran) 4 mg Q6H PRN IVP Nausea & Vomiting 07/24/19 19:15 08/23/19 19:14 Polyethylene Glycol (Miralax) 17 gm HSPRN PRN ORAL Constipation 07/24/19 19:15 08/23/19 19:14 Potassium Chloride (K-Dur) 40 meq TWICE A DAY ORAL 07/31/19 18:15 08/02/19 08:00 08/01/19 10:32 Tamsulosin HCl (Flomax) 0.4 mg DAILY ORAL 07/25/19 09:00 08/24/19 08:59 08/01/19 10:32 Allergies: Coded Allergies: PENICILLINS (Verified Allergy, Unknown, 07/24/19) Subjective awake, responsive, sleepy, K: 3.2 Objective Last Vital Signs Date Time Temp Pulse Resp B/P (MAP) Pulse Ox O2 Delivery O2 Flow Rate FiO2 08/01/19 21:00 Room Air 08/01/19 20:00 98.2 75 20 150/90 (110) 95 07/31/19 11:55 6 Laboratory Tests Test 08/01/19 06:05 White Blood Count 6.8 K/UL (4.8-10.8) Red Blood Count 5.29 M/UL (4.20-5.40) Hemoglobin 14.7 G/DL (12.0-16.0) Hematocrit 44.0 % (37.0-47.0) Mean Corpuscular Volume 83 FL (80-99) Mean Corpuscular Hemoglobin 27.8 PG (27.0-31.0) Mean Corpuscular Hemoglobin Concent 33.4 G/DL (32.0-36.0) Red Cell Distribution Width 12.4 % (11.6-14.8) Platelet Count 135 K/UL (150-450) L Mean Platelet Volume 9.2 FL (6.5-10.1) Neutrophils (%) (Auto) 70.0 % (45.0-75.0) Lymphocytes (%) (Auto) 22.0 % (20.0-45.0) Monocytes (%) (Auto) 5.9 % (1.0-10.0) Eosinophils (%) (Auto) 1.2 % (0.0-3.0) Basophils (%) (Auto) 0.9 % (0.0-2.0) Sodium Level 149 MMOL/L (136-145) H Potassium Level 3.2 MMOL/L (3.5-5.1) L Chloride Level 112 MMOL/L (98-107) H Carbon Dioxide Level 29 MMOL/L (21-32) Anion Gap 8 mmol/L (5-15) Blood Urea Nitrogen 38 mg/dL (7-18) H Creatinine 0.6 MG/DL (0.55-1.30) Estimat Glomerular Filtration Rate > 60 mL/min (>60) Glucose Level 117 MG/DL (74-106) H Calcium Level 9.5 MG/DL (8.5-10.1) Intake and Output 07/31/19 08/01/19 19:00 07:00 Intake Total 370 ml Balance 370 ml Intake Oral 120 ml IV Total 250 ml # Voids 1 # Bowel Movements 1 Objective General: No acute distress, responsive, sleepy. HEENT: NCAT, sclera anicteric, PERRL, EOMI. Neck: Supple, no significant jugular venous distention, Lungs: Fair inspiratory effort, no accessory muscle use, clear to auscultation bilaterally, no Wheeze or Rales. Heart: Regular rate and rhythm, normal S1/S2, no murmur, Abdomen: soft, nontender, nondistended. Normoactive bowel sounds, Obesity. / Rectal: Refused and deferred. Extremities: No Cyanosis , clubbing or edema. Neuro: A&O x 3, Able to move all extremities Skin: warm, no rashes or lesions. Assessment/Plan Assessment/Plan 1. Altered mental status/encephalopathy. 2. Combative/aggressive behavior. 3. Lewey body dementia. 4. Parkinson disease. 5. Failure to thrive. 6. Hypernatremia. 7. Hypokalemia. 8. FADIA with pre-renal azotemia with dehydration. 07/31/19 EGD=gastritis PLAN: 1. Admit the patient to medical floor. 2. psychiatry consultation=Dr Coburn 3. Haldol as needed for agitation. 4. Resume home medication. 5. DVT prophylaxis. 6. Heparin subcutaneous. 7. Discharge planning: [facility]; needs negative COVID 19 test prior 8. start pantoprazole; GI=Dr Mittal Start IVF @ 75 cc/hr Kcl supplements Monitor AM Labs Rodney Tapia MD Aug 01, 2019 23:27
[2019-08-01] MEDS ORDERED: 1/2NS w/KCl 20mEq 1000ml 1,000 ML IV SCH (23:30)
[2019-08-02] VITALS: BP 153/89
[2019-08-02 04:00] VITALS: BP 162/84
[2019-08-02 05:00] VITALS: BP 145/95
[2019-08-02 06:39] LABS: BASOPHILS % (AUTO) 0.6 % (0.0-2.0); EOSINOPHILS % (AUTO) 0.5 % (0.0-3.0); HEMATOCRIT 41.3 % (37.0-47.0); HEMOGLOBIN 13.7 G/DL (12.0-16.0); LYMPHOCYTES % (AUTO) 14.1 % (20.0-45.0); MEAN CORPUSCULAR VOLUME 83 FL (80-99); MONOCYTES % (AUTO) 4.6 % (1.0-10.0); NEUTROPHILS % (AUTO) 80.3 % (45.0-75.0); PLATELET COUNT 130 K/UL (150-450); RED BLOOD COUNT 4.95 M/UL (4.20-5.40); RED CELL DISTRIBUTION WIDTH 12.2 % (11.6-14.8); WHITE BLOOD COUNT 7.8 K/UL (4.8-10.8)
[2019-08-02 06:55] LABS: ANION GAP 10 mmol/L (5-15); BLOOD UREA NITROGEN 35 mg/dL (7-18); CALCIUM 9.2 MG/DL (8.5-10.1); CARBON DIOXIDE 28 MMOL/L (21-32); CHLORIDE 112 MMOL/L (98-107); CREATININE 0.6 MG/DL (0.55-1.30); POTASSIUM 3.5 MMOL/L (3.5-5.1); SODIUM 150 MMOL/L (136-145)
[2019-08-02 08:00] VITALS: BP 173/93
--- NOTE | 2019-08-02 08:13 | General Progress Note ---
Assessment/Plan Problem List: (1) Psychosis ICD Codes: F29 - Unspecified psychosis not due to a substance or known physiological condition SNOMED: 74258802 (2) Advanced dementia ICD Codes: F03.90 - Unspecified dementia without behavioral disturbance SNOMED: 28269761 (3) Parkinson disease ICD Codes: G20 - Parkinson's disease SNOMED: 36950436 (4) Failure to thrive in adult ICD Codes: R62.7 - Adult failure to thrive SNOMED: 531861919 (5) Altered mental status ICD Codes: R41.82 - Altered mental status, unspecified SNOMED: 419880905 Qualifiers: Qualified Codes: R41.82 - Altered mental status, unspecified (6) Dehydration ICD Codes: E86.0 - Dehydration SNOMED: 75031141 (7) Combative behavior ICD Codes: R46.89 - Other symptoms and signs involving appearance and behavior SNOMED: 221733925 Assessment/Plan: s/p EGD atrophic gastritis refusing to take her meds refusing to eat again appetite stimulant will hold PEG plans for now fu psych recs Subjective ROS Limited/Unobtainable: No Allergies: Coded Allergies: PENICILLINS (Verified Allergy, Unknown, 07/24/19) Objective Last 24 Hour Vital Signs Date Time Temp Pulse Resp B/P (MAP) Pulse Ox O2 Delivery O2 Flow Rate FiO2 08/02/19 05:00 145/95 (112) 08/02/19 04:00 98.4 79 20 162/84 (110) 95 08/02/19 03:46 162/82 08/02/19 00:00 98.6 85 18 153/89 (110) 96 08/01/19 21:00 Room Air 08/01/19 20:00 98.2 75 20 150/90 (110) 95 08/01/19 18:19 164/83 08/01/19 16:00 97.5 74 18 164/83 (110) 96 08/01/19 12:00 97.7 75 18 158/81 (106) 96 08/01/19 09:00 Room Air Intake and Output 08/01/19 08/02/19 19:00 07:00 Intake Total 120 ml 450 ml Balance 120 ml 450 ml Intake Oral 120 ml IV Total 450 ml # Voids 1 # Bowel Movements 1 Laboratory Tests 08/02/19 05:55: White Blood Count 7.8, Red Blood Count 4.95, Hemoglobin 13.7, Hematocrit 41.3, Mean Corpuscular Volume 83, Mean Corpuscular Hemoglobin 27.8, Mean Corpuscular Hemoglobin Concent 33.3, Red Cell Distribution Width 12.2, Platelet Count 130L, Mean Platelet Volume 9.9, Neutrophils (%) (Auto) 80.3H, Lymphocytes (%) (Auto) 14.1L, Monocytes (%) (Auto) 4.6, Eosinophils (%) (Auto) 0.5, Basophils (%) (Auto ) 0.6, Sodium Level 150H, Potassium Level 3.5, Chloride Level 112H, Carbon Dioxide Level 28, Anion Gap 10, Blood Urea Nitrogen 35H, Creatinine 0.6, Estimat Glomerular Filtration Rate > 60, Glucose Level 129H, Calcium Level 9.2 Height (Feet): 5 Height (Inches): 6.00 Weight (Pounds): 142 General Appearance: alert EENT: PERRL/EOMI Neck: supple Cardiovascular: normal rate Respiratory/Chest: decreased breath sounds Abdomen: normal bowel sounds, non tender, soft Extremities: non-tender Franky Mittal MD Aug 02, 2019 08:13
[2019-08-02] MEDS: Heparin 5000 units/ml inj SUBQ SCH ×2 (09:00→20:54)
[2019-08-02] MEDS: Levodopa/Carbidopa 25/100 tab ORAL SCH ×5 (09:00→18:00)
[2019-08-02] MEDS: Tamsulosin 0.4mg cap ORAL SCH ×2 (09:00→09:34)
[2019-08-02] MEDS: Megace 400mg/10ml Susp ORAL SCH (09:00)
[2019-08-02] MEDS ORDERED: Potassium Chloride 10 MEQ in D5W 1000ml 1,000 ML IV SCH (09:00)
[2019-08-02] MEDS: Potassium Chloride 10 MEQ in D5W 1000ml 1,000 ML IV SCH (11:48)
[2019-08-02 12:00] VITALS: BP 145/70
--- NOTE | 2019-08-02 15:02 | Internal Med Progress Note ---
Subjective Date of Service: Aug 02, 2019 Physician Name SantaArturo Attending Physician Rodney Tapia MD Current Medications Medications (Trade) Dose Ordered Sig/Julian Route PRN Reason Start Time Stop Time Status Last Admin Dose Admin Acetaminophen (Tylenol) 650 mg Q4H PRN ORAL fever 07/24/19 19:15 08/23/19 19:14 Carbidopa/Levodopa (Sinemet 25/100) 1 tab THREE TIMES A DAY ORAL 07/25/19 09:00 08/24/19 08:59 08/01/19 10:32 Clonidine HCl (Catapres TTS-1) 1 patch QWEEK TDERMAL 07/29/19 18:00 10/27/19 17:59 07/29/19 17:46 Clonidine HCl (Catapres Tab) 0.1 mg Q4H PRN ORAL For High Blood Pressure 07/29/19 09:00 10/27/19 08:59 08/02/19 03:46 Dextrose (Dextrose 50%) 25 ml Q30M PRN IV Hypoglycemia 07/24/19 19:15 10/22/19 19:14 Dextrose (Dextrose 50%) 50 ml Q30M PRN IV Hypoglycemia 07/24/19 19:15 10/22/19 19:14 Heparin Sodium (Porcine) (Heparin 5000 units/ml) 5,000 units EVERY 12 HOURS SUBQ 07/24/19 21:00 09/07/19 20:59 07/31/19 21:51 Lorazepam (Ativan 2mg/ml 1ml) 1 mg Q6H PRN IM Agitation 07/29/19 16:15 08/05/19 16:14 07/30/19 17:03 Megestrol Acetate (Megace) 400 mg DAILY ORAL 08/02/19 09:00 10/31/19 08:59 Mirtazapine (Remeron) 30 mg BEDTIME ORAL 07/30/19 21:00 10/28/19 20:59 Olanzapine (ZyPREXA) 2.5 mg BEDTIME ORAL 07/31/19 21:00 09/14/19 20:59 Ondansetron HCl (Zofran) 4 mg Q6H PRN IVP Nausea & Vomiting 07/24/19 19:15 08/23/19 19:14 Polyethylene Glycol (Miralax) 17 gm HSPRN PRN ORAL Constipation 07/24/19 19:15 08/23/19 19:14 Potassium Chloride 10 meq/ Dextrose 1,005 ml @ 75 mls/hr [id number] IV 08/02/19 10:00 09/01/19 09:59 08/02/19 11:48 Tamsulosin HCl (Flomax) 0.4 mg DAILY ORAL 07/25/19 09:00 08/24/19 08:59 08/02/19 09:34 Allergies: Coded Allergies: PENICILLINS (Verified Allergy, Unknown, 07/24/19) ROS Limited/Unobtainable: No Constitutional: Reports: no symptoms HEENT: Reports: no symptoms Cardiovascular: Reports: no symptoms Respiratory: Reports: no symptoms Gastrointestinal/Abdominal: Reports: no symptoms Genitourinary: Reports: no symptoms Neurologic/Psychiatric: Reports: no symptoms Subjective 79 YO F with history of Lewey Body dementia, admitted with altered mental status and increased aggression. Cover for Int Med-Dr Tapia. Eating more. S/ P endoscopy 07/31/19 Objective Last Vital Signs Date Time Temp Pulse Resp B/P (MAP) Pulse Ox O2 Delivery O2 Flow Rate FiO2 08/02/19 08:00 97.9 70 18 173/93 (119) 98 08/01/19 21:00 Room Air 07/31/19 11:55 6 Laboratory Tests Test 08/02/19 05:55 White Blood Count 7.8 K/UL (4.8-10.8) Red Blood Count 4.95 M/UL (4.20-5.40) Hemoglobin 13.7 G/DL (12.0-16.0) Hematocrit 41.3 % (37.0-47.0) Mean Corpuscular Volume 83 FL (80-99) Mean Corpuscular Hemoglobin 27.8 PG (27.0-31.0) Mean Corpuscular Hemoglobin Concent 33.3 G/DL (32.0-36.0) Red Cell Distribution Width 12.2 % (11.6-14.8) Platelet Count 130 K/UL (150-450) L Mean Platelet Volume 9.9 FL (6.5-10.1) Neutrophils (%) (Auto) 80.3 % (45.0-75.0) H Lymphocytes (%) (Auto) 14.1 % (20.0-45.0) L Monocytes (%) (Auto) 4.6 % (1.0-10.0) Eosinophils (%) (Auto) 0.5 % (0.0-3.0) Basophils (%) (Auto) 0.6 % (0.0-2.0) Sodium Level 150 MMOL/L (136-145) H Potassium Level 3.5 MMOL/L (3.5-5.1) Chloride Level 112 MMOL/L (98-107) H Carbon Dioxide Level 28 MMOL/L (21-32) Anion Gap 10 mmol/L (5-15) Blood Urea Nitrogen 35 mg/dL (7-18) H Creatinine 0.6 MG/DL (0.55-1.30) Estimat Glomerular Filtration Rate > 60 mL/min (>60) Glucose Level 129 MG/DL (74-106) H Calcium Level 9.2 MG/DL (8.5-10.1) Intake and Output 08/01/19 08/02/19 19:00 07:00 Intake Total 120 ml 450 ml Balance 120 ml 450 ml Intake Oral 120 ml IV Total 450 ml # Voids 1 # Bowel Movements 1 Objective PHYSICAL EXAMINATION: GENERAL: The patient is awake, responsive, no acute distress, but confused and disoriented. HEENT: Head and neck examination, pupils are equal and reactive to light. Extraocular movements intact. Neck was supple. No JVD. LUNGS: Good air entry. No wheezing or rales. HEART: S1 and S2. Regular rhythm. No gallops. ABDOMEN: Soft, nondistended, nontender. Positive bowel sounds. EXTREMITIES: No cyanosis, clubbing, or edema. NEUROLOGIC: Cranial nerves II through XII grossly normal. The patient moving all the extremities. Gait was not assessed due to the patient's status. RECTAL/GENITOURINARY: Refused and deferred. PSYCHIATRIC: Mood and affect is intact Assessment/Plan Assessment/Plan ASSESSMENT: 1. Altered mental status/encephalopathy. 2. Combative/aggressive behavior. 3. Lewey body dementia. 4. Parkinson disease. 5. Failure to thrive. 6. 07/31/19 EGD=gastritis PLAN: 1. Admit the patient to medical floor. 2. psychiatry consultation=Dr Coburn 3. Haldol as needed for agitation. 4. Resume home medication. 5. DVT prophylaxis. 6. Heparin subcutaneous. 7. Discharge planning: Unable to return to [facility] 8. COVID 19 test neg 9. start pantoprazole; GI=Arturo Curran MD Aug 02, 2019 15:02
[2019-08-02 16:00] VITALS: BP 158/81
[2019-08-03] VITALS (7 sets, daily range): BP systolic 112–170; BP diastolic 76–107
[2019-08-03] MEDS: Potassium Chloride 10 MEQ in D5W 1000ml 1,000 ML IV SCH ×2 (01:09→12:48)
[2019-08-03 08:42] LABS: ALANINE AMINOTRANSFERASE 11 U/L (12-78); ALBUMIN 3.1 G/DL (3.4-5.0); ALBUMIN/GLOBULIN RATIO 0.8 (1.0-2.7); ALKALINE PHOSPHATASE 69 U/L (46-116); ANION GAP 12 mmol/L (5-15); ASPARTATE AMINO TRANSFERASE 15 U/L (15-37); BILIRUBIN,TOTAL 0.7 MG/DL (0.2-1.0); BLOOD UREA NITROGEN 25 mg/dL (7-18); CALCIUM 9.1 MG/DL (8.5-10.1); CARBON DIOXIDE 26 MMOL/L (21-32); CHLORIDE 107 MMOL/L (98-107); CREATININE 0.5 MG/DL (0.55-1.30); PHOSPHORUS 2.8 MG/DL (2.5-4.9); POTASSIUM 3.5 MMOL/L (3.5-5.1); SODIUM 145 MMOL/L (136-145)
[2019-08-03] MEDS: Tamsulosin 0.4mg cap ORAL SCH (09:00)
[2019-08-03] MEDS: Megace 400mg/10ml Susp ORAL SCH (09:00)
[2019-08-03] MEDS: Heparin 5000 units/ml inj SUBQ SCH ×2 (09:00→20:57)
[2019-08-03] MEDS: Levodopa/Carbidopa 25/100 tab ORAL SCH ×3 (09:00→18:00)
[2019-08-03 09:51] LABS: BASOPHILS % (AUTO) 0.6 % (0.0-2.0); EOSINOPHILS % (AUTO) 1.6 % (0.0-3.0); HEMATOCRIT 39.1 % (37.0-47.0); HEMOGLOBIN 13.1 G/DL (12.0-16.0); LYMPHOCYTES % (AUTO) 27.2 % (20.0-45.0); MEAN CORPUSCULAR VOLUME 83 FL (80-99); MONOCYTES % (AUTO) 7.1 % (1.0-10.0); NEUTROPHILS % (AUTO) 63.6 % (45.0-75.0); PLATELET COUNT 102 K/UL (150-450); RED BLOOD COUNT 4.69 M/UL (4.20-5.40); RED CELL DISTRIBUTION WIDTH 12.2 % (11.6-14.8); WHITE BLOOD COUNT 7.1 K/UL (4.8-10.8)
--- NOTE | 2019-08-03 10:02 | General Progress Note ---
Assessment/Plan Problem List: (1) Psychosis ICD Codes: F29 - Unspecified psychosis not due to a substance or known physiological condition SNOMED: 90770713 (2) Advanced dementia ICD Codes: F03.90 - Unspecified dementia without behavioral disturbance SNOMED: 92839193 (3) Parkinson disease ICD Codes: G20 - Parkinson's disease SNOMED: 53434457 (4) Failure to thrive in adult ICD Codes: R62.7 - Adult failure to thrive SNOMED: 083738997 (5) Altered mental status ICD Codes: R41.82 - Altered mental status, unspecified SNOMED: 561551551 Qualifiers: Qualified Codes: R41.82 - Altered mental status, unspecified (6) Dehydration ICD Codes: E86.0 - Dehydration SNOMED: 64050042 (7) Combative behavior ICD Codes: R46.89 - Other symptoms and signs involving appearance and behavior SNOMED: 281353045 Assessment/Plan: s/p EGD atrophic gastritis appetite stimulant will hold PEG plans for now fu psych recs Subjective ROS Limited/Unobtainable: No Allergies: Coded Allergies: PENICILLINS (Verified Allergy, Unknown, 07/24/19) Objective Last 24 Hour Vital Signs Date Time Temp Pulse Resp B/P (MAP) Pulse Ox O2 Delivery O2 Flow Rate FiO2 08/03/19 00:09 98.0 76 18 148/80 (102) 98 08/02/19 20:51 Room Air 08/02/19 16:00 97.9 79 18 158/81 (106) 97 08/02/19 12:00 98.1 72 17 145/70 (95) 98 Intake and Output 08/02/19 08/03/19 19:00 07:00 Intake Total 525 ml 1180 ml Balance 525 ml 1180 ml Intake Oral 80 ml IV Total 525 ml 900 ml Other 200 ml # Voids 4 # Bowel Movements 1 Laboratory Tests 08/03/19 06:10: White Blood Count 7.1, Red Blood Count 4.69, Hemoglobin 13.1, Hematocrit 39.1, Mean Corpuscular Volume 83, Mean Corpuscular Hemoglobin 28.0, Mean Corpuscular Hemoglobin Concent 33.6, Red Cell Distribution Width 12.2, Platelet Count 102L, Mean Platelet Volume 10.8H, Neutrophils (%) (Auto) 63.6, Lymphocytes (%) (Auto) 27.2, Monocytes (%) (Auto) 7.1, Eosinophils (%) (Auto) 1.6, Basophils (%) (Auto ) 0.6, Erythrocyte Sedimentation Rate [Pending], Sodium Level 145, Potassium Level 3.5, Chloride Level 107, Carbon Dioxide Level 26, Anion Gap 12, Blood Urea Nitrogen 25H, Creatinine 0.5L, Estimat Glomerular Filtration Rate > 60, Glucose Level 121H, Calcium Level 9.1, Phosphorus Level 2.8, Magnesium Level 1.8 , Total Bilirubin 0.7, Aspartate Amino Transf (AST/SGOT) 15, Alanine Aminotransferase (ALT/SGPT) 11L, Alkaline Phosphatase 69, C-Reactive Protein, Quantitative 1.6H, Total Protein 6.9, Albumin 3.1L, Globulin 3.8, Albumin/ Globulin Ratio 0.8L Height (Feet): 5 Height (Inches): 6.00 Weight (Pounds): 142 General Appearance: no apparent distress EENT: normal ENT inspection Neck: supple Cardiovascular: normal rate Respiratory/Chest: decreased breath sounds Abdomen: normal bowel sounds, non tender, soft Extremities: non-tender Franky Mittal MD Aug 03, 2019 10:02
[2019-08-03] MEDS: LORazepam Inj 2mg/ml 1ml IM PRN (10:16)
--- NOTE | 2019-08-03 18:14 | Internal Med Progress Note ---
Subjective Date of Service: Aug 03, 2019 Physician Name PrattArturo Attending Physician Rodney Tapia MD Current Medications Medications (Trade) Dose Ordered Sig/Julian Route PRN Reason Start Time Stop Time Status Last Admin Dose Admin Acetaminophen (Tylenol) 650 mg Q4H PRN ORAL fever 07/24/19 19:15 08/23/19 19:14 Carbidopa/Levodopa (Sinemet 25/100) 1 tab THREE TIMES A DAY ORAL 07/25/19 09:00 08/24/19 08:59 08/03/19 13:05 Clonidine HCl (Catapres TTS-1) 1 patch QWEEK TDERMAL 07/29/19 18:00 10/27/19 17:59 07/29/19 17:46 Clonidine HCl (Catapres Tab) 0.1 mg Q4H PRN ORAL For High Blood Pressure 07/29/19 09:00 10/27/19 08:59 08/02/19 03:46 Dextrose (Dextrose 50%) 25 ml Q30M PRN IV Hypoglycemia 07/24/19 19:15 10/22/19 19:14 Dextrose (Dextrose 50%) 50 ml Q30M PRN IV Hypoglycemia 07/24/19 19:15 10/22/19 19:14 Heparin Sodium (Porcine) (Heparin 5000 units/ml) 5,000 units EVERY 12 HOURS SUBQ 07/24/19 21:00 09/07/19 20:59 07/31/19 21:51 Lorazepam (Ativan 2mg/ml 1ml) 1 mg Q6H PRN IM Agitation 07/29/19 16:15 08/05/19 16:14 08/03/19 10:16 Megestrol Acetate (Megace) 400 mg DAILY ORAL 08/02/19 09:00 10/31/19 08:59 Mirtazapine (Remeron) 30 mg BEDTIME ORAL 07/30/19 21:00 10/28/19 20:59 Olanzapine (ZyPREXA) 2.5 mg BEDTIME ORAL 07/31/19 21:00 09/14/19 20:59 Ondansetron HCl (Zofran) 4 mg Q6H PRN IVP Nausea & Vomiting 07/24/19 19:15 08/23/19 19:14 Polyethylene Glycol (Miralax) 17 gm HSPRN PRN ORAL Constipation 07/24/19 19:15 08/23/19 19:14 Potassium Chloride 10 meq/ Dextrose 1,005 ml @ 75 mls/hr [id number] IV 08/02/19 10:00 09/01/19 09:59 08/03/19 01:09 Tamsulosin HCl (Flomax) 0.4 mg DAILY ORAL 07/25/19 09:00 08/24/19 08:59 08/01/19 10:32 Allergies: Coded Allergies: PENICILLINS (Verified Allergy, Unknown, 07/24/19) ROS Limited/Unobtainable: No Constitutional: Reports: no symptoms HEENT: Reports: no symptoms Cardiovascular: Reports: no symptoms Respiratory: Reports: no symptoms Gastrointestinal/Abdominal: Reports: no symptoms Genitourinary: Reports: no symptoms Neurologic/Psychiatric: Reports: no symptoms Subjective 79 YO F with history of Lewey Body dementia, admitted with altered mental status and increased aggression. Cover for Int Med-Dr Tapia. Eating more. S/ P endoscopy 07/31/19 Objective Last Vital Signs Date Time Temp Pulse Resp B/P (MAP) Pulse Ox O2 Delivery O2 Flow Rate FiO2 08/03/19 12:00 98.0 78 17 160/81 (107) 08/03/19 09:00 Room Air 08/03/19 00:09 98 07/31/19 11:55 6 Laboratory Tests Test 08/03/19 06:10 White Blood Count 7.1 K/UL (4.8-10.8) Red Blood Count 4.69 M/UL (4.20-5.40) Hemoglobin 13.1 G/DL (12.0-16.0) Hematocrit 39.1 % (37.0-47.0) Mean Corpuscular Volume 83 FL (80-99) Mean Corpuscular Hemoglobin 28.0 PG (27.0-31.0) Mean Corpuscular Hemoglobin Concent 33.6 G/DL (32.0-36.0) Red Cell Distribution Width 12.2 % (11.6-14.8) Platelet Count 102 K/UL (150-450) L Mean Platelet Volume 10.8 FL (6.5-10.1) H Neutrophils (%) (Auto) 63.6 % (45.0-75.0) Lymphocytes (%) (Auto) 27.2 % (20.0-45.0) Monocytes (%) (Auto) 7.1 % (1.0-10.0) Eosinophils (%) (Auto) 1.6 % (0.0-3.0) Basophils (%) (Auto) 0.6 % (0.0-2.0) Erythrocyte Sedimentation Rate 23 MM/HR (0-30) Sodium Level 145 MMOL/L (136-145) Potassium Level 3.5 MMOL/L (3.5-5.1) Chloride Level 107 MMOL/L (98-107) Carbon Dioxide Level 26 MMOL/L (21-32) Anion Gap 12 mmol/L (5-15) Blood Urea Nitrogen 25 mg/dL (7-18) H Creatinine 0.5 MG/DL (0.55-1.30) L Estimat Glomerular Filtration Rate > 60 mL/min (>60) Glucose Level 121 MG/DL (74-106) H Calcium Level 9.1 MG/DL (8.5-10.1) Phosphorus Level 2.8 MG/DL (2.5-4.9) Magnesium Level 1.8 MG/DL (1.8-2.4) Total Bilirubin 0.7 MG/DL (0.2-1.0) Aspartate Amino Transf (AST/SGOT) 15 U/L (15-37) Alanine Aminotransferase (ALT/SGPT) 11 U/L (12-78) L Alkaline Phosphatase 69 U/L (46-116) C-Reactive Protein, Quantitative 1.6 mg/dL (0.00-0.90) H Total Protein 6.9 G/DL (6.4-8.2) Albumin 3.1 G/DL (3.4-5.0) L Globulin 3.8 g/dL Albumin/Globulin Ratio 0.8 (1.0-2.7) L Intake and Output 08/02/19 08/03/19 19:00 07:00 Intake Total 525 ml 1180 ml Balance 525 ml 1180 ml Intake Oral 80 ml IV Total 525 ml 900 ml Other 200 ml # Voids 4 # Bowel Movements 1 Objective PHYSICAL EXAMINATION: GENERAL: The patient is awake, responsive, no acute distress, but confused and disoriented. HEENT: Head and neck examination, pupils are equal and reactive to light. Extraocular movements intact. Neck was supple. No JVD. LUNGS: Good air entry. No wheezing or rales. HEART: S1 and S2. Regular rhythm. No gallops. ABDOMEN: Soft, nondistended, nontender. Positive bowel sounds. EXTREMITIES: No cyanosis, clubbing, or edema. NEUROLOGIC: Cranial nerves II through XII grossly normal. The patient moving all the extremities. Gait was not assessed due to the patient's status. RECTAL/GENITOURINARY: Refused and deferred. PSYCHIATRIC: Mood and affect is intact Assessment/Plan Assessment/Plan ASSESSMENT: 1. Altered mental status/encephalopathy. 2. Combative/aggressive behavior. 3. Lewey body dementia. 4. Parkinson disease. 5. Failure to thrive. 6. 07/31/19 EGD=gastritis PLAN: 1. Admit the patient to medical floor. 2. psychiatry consultation=Dr Coburn 3. Haldol as needed for agitation. 4. Resume home medication. 5. DVT prophylaxis. 6. Heparin subcutaneous. 7. Discharge planning: Unable to return to [facility] 8. COVID 19 test neg 9. start pantoprazole; GI=Arturo Curran MD Aug 03, 2019 18:14
--- NOTE | 2019-08-03 22:56 | Diagnostic Imaging Report ---
Indications: Headache, status post fall from bed Technique: Spiral acquisitions obtained through the brain. Angled axial and coronal 5 x 5 mm slices were reconstructed. Total dose length product 1045 mGycm. CTDI vol(s) 53 mGy. Dose reduction achieved using automated exposure control Comparison: None. Findings: There is age-related enlargement of the ventricles and extra axial CSF spaces. There is periventricular deep white matter low-attenuation, consistent with chronic microvascular ischemic change. No acute intracranial hemorrhage or edema. No mass effect nor midline shift.. There is some soft tissue gas over the bridge of the nose and in the right infraorbital region. The calvarium is intact. There is minimal right maxillary sinus mucosal disease versus a small air-fluid level. The mastoids are clear. The orbits are unremarkable. There is a possible empty sella Impression: Chronic and age-related changes Negative for acute intracranial bleed or mass effect Evidence of soft tissue laceration This agrees with the preliminary interpretation provided overnight by [facility] teleradiology service. The CT scanner at [facility] is accredited by the [employer] and the scans are performed using protocols designed to limit radiation exposure to as low as reasonably achievable to attain images of sufficient resolution adequate for diagnostic evaluation.
--- NOTE | 2019-08-03 23:16 | Emergency Room Report ---
History of Present Illness General Chief Complaint: General Complaint Source: Medical Record Present Illness Allergies: Coded Allergies: PENICILLINS (Verified Allergy, Unknown, 07/24/19) COVID-19 Screening Contact w/high risk pt: No Recent Travel to affected area: No Experienced COVID-19 symptoms?: No Nursing Documentation-[facility] Past Medical History: No History, Except For Hx Cardiac Problems: No - encophalopaty, parkinson, dementia, UTI, violent behavior Physical Exam Vital Signs Date Time Temp Pulse Resp B/P (MAP) Pulse Ox O2 Delivery O2 Flow Rate FiO2 07/30/19 08:00 99.3 101 20 190/92 (124) 96 07/30/19 09:00 Room Air 07/31/19 11:35 6 Procedures Laceration/Wound Repair Laceration/Wound Repair : Consent: Emergent Wound Location: face Wound's Depth, Shape: into muscle Wound Length (cm): 1 Wound Explored: clean Wound Debrided: minimal Wound Repaired With: sutures Suture Size/Type: 5:0 Number of Sutures: 2 Layer Closure?: No Patient Tolerated: Well Complications: None Progress There is a laceration approximately 1 cm in a V-shaped fashion just at the lateral aspect of the right nose adjacent to the eye. Does not appear to involve the canthus of the eye. Patient is fairly combative however 2 sutures were placed as noted above with appropriate approximation Medical Decision Making Diagnostic Impression: Primary Impression: Laceration ER Course I was called upstairs for evaluation of a laceration on and admitted patient. On review of medical records patient has been admitted for altered mental status and dehydration Review of laboratory work shows thrombocytopenia on a rapid secondary medical evaluation patient is awake Has some flight of thought is not able to follow commands however And appears somewhat agitated There is laceration as noted above on the facial region pupils are equal reactive Neck is soft and supple patient's cardiac activity is regular rate and rhythm Abdomen was soft Patient has no signs of any focal deficit and moves all extremities equally CT head has been obtained by inpatient physician and does not appear to show any acute findings Inpatient physician notified of the sutures and the patient continues inpatient care CT/MRI/US Diagnostic Results CT/MRI/US Diagnostic Results : Impression CT head no acute disease Last Vital Signs Date Time Temp Pulse Resp B/P (MAP) Pulse Ox O2 Delivery O2 Flow Rate FiO2 08/03/19 22:30 97.6 86 18 135/93 (107) 98 08/03/19 21:43 Room Air 07/31/19 11:55 6 Status: improved Disposition: ADMITTED INPATIENT Condition: Serious Referrals: NON PHYSICIAN (PCP) Susan Faust DO Aug 03, 2019 23:16
[2019-08-04] VITALS (9 sets, daily range): BP systolic 88–157; BP diastolic 53–97
--- NOTE | 2019-08-04 03:15 | Progress Note ---
DATE: 08/03/2019 SUBJECTIVE: Patient is awaiting placement. She still has low appetite and not eating adequately. MENTAL STATUS EXAMINATION: Patient is alert, disoriented. Mood is neutral. Affect is flat. Thought process, there is a paucity of thought content. Thought content, no suicidal or homicidal ideation. Cognition is impaired. Insight and judgment impaired. ASSESSMENT: Dementia with behavior disturbance. PLAN: 1. Continue current psychotropic medications. 2. Provide the patient with reality orientation and supportive therapy. Nguyễn Coburn M.D. DR: SEBASTIAN JOB#: [id number] CC:
[2019-08-04 07:44] LABS: MEAN CORPUSCULAR VOLUME 82 FL (80-99); PLATELET COUNT 97 K/UL (150-450); RED BLOOD COUNT 4.98 M/UL (4.20-5.40); RED CELL DISTRIBUTION WIDTH 12.1 % (11.6-14.8); WHITE BLOOD COUNT 12.1 K/UL (4.8-10.8)
[2019-08-04 08:31] LABS: ANION GAP 11 mmol/L (5-15); BLOOD UREA NITROGEN 14 mg/dL (7-18); CALCIUM 9.3 MG/DL (8.5-10.1); CARBON DIOXIDE 24 MMOL/L (21-32); CHLORIDE 103 MMOL/L (98-107); CREATININE 0.8 MG/DL (0.55-1.30); POTASSIUM 4.4 MMOL/L (3.5-5.1); SODIUM 138 MMOL/L (136-145)
--- NOTE | 2019-08-04 08:47 | General Progress Note ---
Assessment/Plan Problem List: (1) Psychosis ICD Codes: F29 - Unspecified psychosis not due to a substance or known physiological condition SNOMED: 07037748 (2) Advanced dementia ICD Codes: F03.90 - Unspecified dementia without behavioral disturbance SNOMED: 05031775 (3) Parkinson disease ICD Codes: G20 - Parkinson's disease SNOMED: 17121517 (4) Failure to thrive in adult ICD Codes: R62.7 - Adult failure to thrive SNOMED: 127136882 (5) Altered mental status ICD Codes: R41.82 - Altered mental status, unspecified SNOMED: 163596883 Qualifiers: Qualified Codes: R41.82 - Altered mental status, unspecified (6) Dehydration ICD Codes: E86.0 - Dehydration SNOMED: 66957500 (7) Combative behavior ICD Codes: R46.89 - Other symptoms and signs involving appearance and behavior SNOMED: 352082143 Assessment/Plan: s/p EGD atrophic gastritis appetite stimulant will hold PEG plans for now fu psych recs Subjective ROS Limited/Unobtainable: No Allergies: Coded Allergies: PENICILLINS (Verified Allergy, Unknown, 07/24/19) Objective Last 24 Hour Vital Signs Date Time Temp Pulse Resp B/P (MAP) Pulse Ox O2 Delivery O2 Flow Rate FiO2 08/04/19 08:00 98.2 79 18 88/62 (71) 95 08/04/19 04:00 98.4 77 18 136/83 (100) 96 08/04/19 01:00 98.0 98 20 140/79 (99) 98 08/04/19 00:11 98.2 96 Room Air 08/04/19 00:00 97.9 88 20 157/97 (117) 97 08/03/19 22:30 97.6 86 18 135/93 (107) 98 08/03/19 22:10 98.0 102 20 170/107 (128) 99 08/03/19 21:43 Room Air 08/03/19 20:55 170/107 08/03/19 20:30 97.2 85 20 170/107 (128) 96 86 08/03/19 16:00 98.1 86 17 112/76 (88) 08/03/19 12:00 98.0 78 17 160/81 (107) 08/03/19 09:00 Room Air Intake and Output 08/03/19 08/04/19 19:00 07:00 Intake Total 550 ml 60 ml Balance 550 ml 60 ml Intake Oral 60 ml IV Total 150 ml Other 400 ml # Voids 4 Laboratory Tests 08/04/19 06:55: White Blood Count 12.1#H, Red Blood Count 4.98, Hemoglobin 14.0, Hematocrit 41.0 , Mean Corpuscular Volume 82, Mean Corpuscular Hemoglobin 28.0, Mean Corpuscular Hemoglobin Concent 34.1, Red Cell Distribution Width 12.1, Platelet Count 97L, Mean Platelet Volume 10.9H, Neutrophils (%) (Auto) , Lymphocytes (%) (Auto) , Monocytes (%) (Auto) , Eosinophils (%) (Auto) , Basophils (%) (Auto) , Neutrophils % (Manual) [Pending], Lymphocytes % (Manual) [Pending], Platelet Estimate [Pending], Platelet Morphology [Pending], Sodium Level 138, Potassium Level 4.4, Chloride Level 103, Carbon Dioxide Level 24, Anion Gap 11, Blood Urea Nitrogen 14, Creatinine 0.8#, Estimat Glomerular Filtration Rate > 60, Glucose Level 90, Calcium Level 9.3 Height (Feet): 5 Height (Inches): 6.00 Weight (Pounds): 142 General Appearance: no apparent distress EENT: normal ENT inspection Neck: supple Cardiovascular: normal rate Respiratory/Chest: decreased breath sounds Abdomen: normal bowel sounds, non tender, soft Extremities: non-tender Franky Mittal MD Aug 04, 2019 08:47
[2019-08-04] MEDS: Megace 400mg/10ml Susp ORAL SCH ×2 (09:00→09:31)
[2019-08-04] MEDS: Heparin 5000 units/ml inj SUBQ SCH ×2 (09:00→20:07)
[2019-08-04] MEDS: Levodopa/Carbidopa 25/100 tab ORAL SCH ×4 (09:00→17:37)
[2019-08-04] MEDS: Tamsulosin 0.4mg cap ORAL SCH ×2 (09:00→09:31)
--- NOTE | 2019-08-04 11:24 | Pulmonology Progress Note ---
Assessment/Plan Problems: (1) Combative behavior (2) Failure to thrive in adult (3) Psychosis (4) Advanced dementia (5) Parkinson disease Assessment/Plan calmer now all reviewed doing better, eating better symptomatic treatment dc planning Subjective Interval Events: late note for 08/01 Allergies: Coded Allergies: PENICILLINS (Verified Allergy, Unknown, 07/24/19) Objective Last 24 Hour Vital Signs Date Time Temp Pulse Resp B/P (MAP) Pulse Ox O2 Delivery O2 Flow Rate FiO2 08/04/19 09:28 73 115/73 (87) 08/04/19 09:00 Room Air 08/04/19 08:00 98.2 79 18 88/62 (71) 95 08/04/19 04:00 98.4 77 18 136/83 (100) 96 08/04/19 01:00 98.0 98 20 140/79 (99) 98 08/04/19 00:11 98.2 96 Room Air 08/04/19 00:00 97.9 88 20 157/97 (117) 97 08/03/19 22:30 97.6 86 18 135/93 (107) 98 08/03/19 22:10 98.0 102 20 170/107 (128) 99 08/03/19 21:43 Room Air 08/03/19 20:55 170/107 08/03/19 20:30 97.2 85 20 170/107 (128) 96 86 08/03/19 16:00 98.1 86 17 112/76 (88) 08/03/19 12:00 98.0 78 17 160/81 (107) Intake and Output 08/03/19 08/04/19 19:00 07:00 Intake Total 550 ml 60 ml Balance 550 ml 60 ml Intake Oral 60 ml IV Total 150 ml Other 400 ml # Voids 4 General Appearance: WD/WN HEENT: normocephalic, anicteric Respiratory/Chest: chest wall non-tender, lungs clear Cardiovascular: normal peripheral pulses, normal rate Abdomen: normal bowel sounds, soft, non tender Genitourinary: normal external genitalia Skin: no rash Laboratory Tests 08/04/19 06:55: White Blood Count 12.1#H, Red Blood Count 4.98, Hemoglobin 14.0, Hematocrit 41.0 , Mean Corpuscular Volume 82, Mean Corpuscular Hemoglobin 28.0, Mean Corpuscular Hemoglobin Concent 34.1, Red Cell Distribution Width 12.1, Platelet Count 97L, Mean Platelet Volume 10.9H, Neutrophils (%) (Auto) , Lymphocytes (%) (Auto) , Monocytes (%) (Auto) , Eosinophils (%) (Auto) , Basophils (%) (Auto) , Differential Total Cells Counted 100, Neutrophils % (Manual) 77H, Lymphocytes % (Manual) 21, Monocytes % (Manual) 2, Eosinophils % (Manual) 0, Basophils % ( Manual) 0, Band Neutrophils 0, Platelet Estimate DecreasedL, Platelet Morphology Normal, Red Blood Cell Morphology Normal, Sodium Level 138, Potassium Level 4.4, Chloride Level 103, Carbon Dioxide Level 24, Anion Gap 11, Blood Urea Nitrogen 14, Creatinine 0.8#, Estimat Glomerular Filtration Rate > 60 , Glucose Level 90, Calcium Level 9.3 Current Medications Medications (Trade) Dose Ordered Sig/Julian Route PRN Reason Start Time Stop Time Status Last Admin Dose Admin Acetaminophen (Tylenol) 650 mg Q4H PRN ORAL fever 07/24/19 19:15 08/23/19 19:14 Carbidopa/Levodopa (Sinemet 25/) 1 tab THREE TIMES A DAY ORAL 07/25/19 09:00 08/24/19 08:59 08/03/19 13:05 Clonidine HCl (Catapres TTS-1) 1 patch QWEEK TDERMAL 07/29/19 18:00 10/27/19 17:59 07/29/19 17:46 Clonidine HCl (Catapres Tab) 0.1 mg Q4H PRN ORAL For High Blood Pressure 07/29/19 09:00 10/27/19 08:59 08/03/19 20:55 Dextrose (Dextrose 50%) 25 ml Q30M PRN IV Hypoglycemia 07/24/19 19:15 10/22/19 19:14 Dextrose (Dextrose 50%) 50 ml Q30M PRN IV Hypoglycemia 07/24/19 19:15 10/22/19 19:14 Heparin Sodium (Porcine) (Heparin 5000 units/ml) 5,000 units EVERY 12 HOURS SUBQ 07/24/19 21:00 09/07/19 20:59 07/31/19 21:51 Lorazepam (Ativan 2mg/ml 1ml) 1 mg Q6H PRN IM Agitation 07/29/19 16:15 08/05/19 16:14 08/03/19 10:16 Megestrol Acetate (Megace) 400 mg DAILY ORAL 08/02/19 09:00 10/31/19 08:59 Mirtazapine (Remeron) 30 mg BEDTIME ORAL 07/30/19 21:00 10/28/19 20:59 08/03/19 20:56 Olanzapine (ZyPREXA) 2.5 mg BEDTIME ORAL 07/31/19 21:00 09/14/19 20:59 08/03/19 20:56 Ondansetron HCl (Zofran) 4 mg Q6H PRN IVP Nausea & Vomiting 07/24/19 19:15 08/23/19 19:14 Polyethylene Glycol (Miralax) 17 gm HSPRN PRN ORAL Constipation 07/24/19 19:15 08/23/19 19:14 Tamsulosin HCl (Flomax) 0.4 mg DAILY ORAL 07/25/19 09:00 08/24/19 08:59 08/01/19 10:32 Harinder Elena MD Aug 04, 2019 11:24
--- NOTE | 2019-08-04 11:26 | Pulmonology Progress Note ---
Assessment/Plan Problems: (1) Combative behavior (2) Failure to thrive in adult (3) Psychosis (4) Advanced dementia (5) Parkinson disease Assessment/Plan calmer now all reviewed doing better, eating better symptomatic treatment dc planning Subjective Interval Events: late note 08/02 Allergies: Coded Allergies: PENICILLINS (Verified Allergy, Unknown, 07/24/19) Objective Last 24 Hour Vital Signs Date Time Temp Pulse Resp B/P (MAP) Pulse Ox O2 Delivery O2 Flow Rate FiO2 08/04/19 09:28 73 115/73 (87) 08/04/19 09:00 Room Air 08/04/19 08:00 98.2 79 18 88/62 (71) 95 08/04/19 04:00 98.4 77 18 136/83 (100) 96 08/04/19 01:00 98.0 98 20 140/79 (99) 98 08/04/19 00:11 98.2 96 Room Air 08/04/19 00:00 97.9 88 20 157/97 (117) 97 08/03/19 22:30 97.6 86 18 135/93 (107) 98 08/03/19 22:10 98.0 102 20 170/107 (128) 99 08/03/19 21:43 Room Air 08/03/19 20:55 170/107 08/03/19 20:30 97.2 85 20 170/107 (128) 96 86 08/03/19 16:00 98.1 86 17 112/76 (88) 08/03/19 12:00 98.0 78 17 160/81 (107) Intake and Output 08/03/19 08/04/19 19:00 07:00 Intake Total 550 ml 60 ml Balance 550 ml 60 ml Intake Oral 60 ml IV Total 150 ml Other 400 ml # Voids 4 Objective General Appearance: WD/WN HEENT: normocephalic, anicteric Respiratory/Chest: chest wall non-tender, lungs clear Cardiovascular: normal peripheral pulses, normal rate Abdomen: normal bowel sounds, soft, non tender Genitourinary: normal external genitalia Laboratory Tests 08/04/19 06:55: White Blood Count 12.1#H, Red Blood Count 4.98, Hemoglobin 14.0, Hematocrit 41.0 , Mean Corpuscular Volume 82, Mean Corpuscular Hemoglobin 28.0, Mean Corpuscular Hemoglobin Concent 34.1, Red Cell Distribution Width 12.1, Platelet Count 97L, Mean Platelet Volume 10.9H, Neutrophils (%) (Auto) , Lymphocytes (%) (Auto) , Monocytes (%) (Auto) , Eosinophils (%) (Auto) , Basophils (%) (Auto) , Differential Total Cells Counted 100, Neutrophils % (Manual) 77H, Lymphocytes % (Manual) 21, Monocytes % (Manual) 2, Eosinophils % (Manual) 0, Basophils % ( Manual) 0, Band Neutrophils 0, Platelet Estimate DecreasedL, Platelet Morphology Normal, Red Blood Cell Morphology Normal, Sodium Level 138, Potassium Level 4.4, Chloride Level 103, Carbon Dioxide Level 24, Anion Gap 11, Blood Urea Nitrogen 14, Creatinine 0.8#, Estimat Glomerular Filtration Rate > 60 , Glucose Level 90, Calcium Level 9.3 Current Medications Medications (Trade) Dose Ordered Sig/Julian Route PRN Reason Start Time Stop Time Status Last Admin Dose Admin Acetaminophen (Tylenol) 650 mg Q4H PRN ORAL fever 07/24/19 19:15 08/23/19 19:14 Carbidopa/Levodopa (Sinemet 25/100) 1 tab THREE TIMES A DAY ORAL 07/25/19 09:00 08/24/19 08:59 08/03/19 13:05 Clonidine HCl (Catapres TTS-1) 1 patch QWEEK TDERMAL 07/29/19 18:00 10/27/19 17:59 07/29/19 17:46 Clonidine HCl (Catapres Tab) 0.1 mg Q4H PRN ORAL For High Blood Pressure 07/29/19 09:00 10/27/19 08:59 08/03/19 20:55 Dextrose (Dextrose 50%) 25 ml Q30M PRN IV Hypoglycemia 07/24/19 19:15 10/22/19 19:14 Dextrose (Dextrose 50%) 50 ml Q30M PRN IV Hypoglycemia 07/24/19 19:15 10/22/19 19:14 Heparin Sodium (Porcine) (Heparin 5000 units/ml) 5,000 units EVERY 12 HOURS SUBQ 07/24/19 21:00 09/07/19 20:59 07/31/19 21:51 Lorazepam (Ativan 2mg/ml 1ml) 1 mg Q6H PRN IM Agitation 07/29/19 16:15 08/05/19 16:14 08/03/19 10:16 Megestrol Acetate (Megace) 400 mg DAILY ORAL 08/02/19 09:00 10/31/19 08:59 Mirtazapine (Remeron) 30 mg BEDTIME ORAL 07/30/19 21:00 10/28/19 20:59 08/03/19 20:56 Olanzapine (ZyPREXA) 2.5 mg BEDTIME ORAL 07/31/19 21:00 09/14/19 20:59 08/03/19 20:56 Ondansetron HCl (Zofran) 4 mg Q6H PRN IVP Nausea & Vomiting 07/24/19 19:15 08/23/19 19:14 Polyethylene Glycol (Miralax) 17 gm HSPRN PRN ORAL Constipation 07/24/19 19:15 08/23/19 19:14 Tamsulosin HCl (Flomax) 0.4 mg DAILY ORAL 07/25/19 09:00 08/24/19 08:59 08/01/19 10:32 Harinder lEena MD Aug 04, 2019 11:26
--- NOTE | 2019-08-04 11:27 | Pulmonology Progress Note ---
Assessment/Plan Problems: (1) Combative behavior (2) Failure to thrive in adult (3) Psychosis (4) Advanced dementia (5) Parkinson disease Assessment/Plan dc megace b/o high risk of DVT, pt is bed bound mostly calmer now all reviewed doing better, eating better symptomatic treatment dc planning Subjective ROS Limited/Unobtainable: No Constitutional: Reports: no symptoms HEENT: Repors: no symptoms Allergies: Coded Allergies: PENICILLINS (Verified Allergy, Unknown, 07/24/19) Objective Last 24 Hour Vital Signs Date Time Temp Pulse Resp B/P (MAP) Pulse Ox O2 Delivery O2 Flow Rate FiO2 08/04/19 09:28 73 115/73 (87) 08/04/19 09:00 Room Air 08/04/19 08:00 98.2 79 18 88/62 (71) 95 08/04/19 04:00 98.4 77 18 136/83 (100) 96 08/04/19 01:00 98.0 98 20 140/79 (99) 98 08/04/19 00:11 98.2 96 Room Air 08/04/19 00:00 97.9 88 20 157/97 (117) 97 08/03/19 22:30 97.6 86 18 135/93 (107) 98 08/03/19 22:10 98.0 102 20 170/107 (128) 99 08/03/19 21:43 Room Air 08/03/19 20:55 170/107 08/03/19 20:30 97.2 85 20 170/107 (128) 96 86 08/03/19 16:00 98.1 86 17 112/76 (88) 08/03/19 12:00 98.0 78 17 160/81 (107) Intake and Output 08/03/19 08/04/19 19:00 07:00 Intake Total 550 ml 60 ml Balance 550 ml 60 ml Intake Oral 60 ml IV Total 150 ml Other 400 ml # Voids 4 Objective General Appearance: WD/WN HEENT: normocephalic, anicteric Respiratory/Chest: chest wall non-tender, lungs clear Cardiovascular: normal peripheral pulses, normal rate Abdomen: normal bowel sounds, soft, non tender Genitourinary: normal external genitalia Laboratory Tests 08/04/19 06:55: White Blood Count 12.1#H, Red Blood Count 4.98, Hemoglobin 14.0, Hematocrit 41.0 , Mean Corpuscular Volume 82, Mean Corpuscular Hemoglobin 28.0, Mean Corpuscular Hemoglobin Concent 34.1, Red Cell Distribution Width 12.1, Platelet Count 97L, Mean Platelet Volume 10.9H, Neutrophils (%) (Auto) , Lymphocytes (%) (Auto) , Monocytes (%) (Auto) , Eosinophils (%) (Auto) , Basophils (%) (Auto) , Differential Total Cells Counted 100, Neutrophils % (Manual) 77H, Lymphocytes % (Manual) 21, Monocytes % (Manual) 2, Eosinophils % (Manual) 0, Basophils % ( Manual) 0, Band Neutrophils 0, Platelet Estimate DecreasedL, Platelet Morphology Normal, Red Blood Cell Morphology Normal, Sodium Level 138, Potassium Level 4.4, Chloride Level 103, Carbon Dioxide Level 24, Anion Gap 11, Blood Urea Nitrogen 14, Creatinine 0.8#, Estimat Glomerular Filtration Rate > 60 , Glucose Level 90, Calcium Level 9.3 Current Medications Medications (Trade) Dose Ordered Sig/Julian Route PRN Reason Start Time Stop Time Status Last Admin Dose Admin Acetaminophen (Tylenol) 650 mg Q4H PRN ORAL fever 07/24/19 19:15 08/23/19 19:14 Carbidopa/Levodopa (Sinemet 25/) 1 tab THREE TIMES A DAY ORAL 07/25/19 09:00 08/24/19 08:59 08/03/19 13:05 Clonidine HCl (Catapres TTS-1) 1 patch QWEEK TDERMAL 07/29/19 18:00 10/27/19 17:59 07/29/19 17:46 Clonidine HCl (Catapres Tab) 0.1 mg Q4H PRN ORAL For High Blood Pressure 07/29/19 09:00 10/27/19 08:59 08/03/19 20:55 Dextrose (Dextrose 50%) 25 ml Q30M PRN IV Hypoglycemia 07/24/19 19:15 10/22/19 19:14 Dextrose (Dextrose 50%) 50 ml Q30M PRN IV Hypoglycemia 07/24/19 19:15 10/22/19 19:14 Heparin Sodium (Porcine) (Heparin 5000 units/ml) 5,000 units EVERY 12 HOURS SUBQ 07/24/19 21:00 09/07/19 20:59 07/31/19 21:51 Lorazepam (Ativan 2mg/ml 1ml) 1 mg Q6H PRN IM Agitation 07/29/19 16:15 08/05/19 16:14 08/03/19 10:16 Megestrol Acetate (Megace) 400 mg DAILY ORAL 08/02/19 09:00 10/31/19 08:59 Mirtazapine (Remeron) 30 mg BEDTIME ORAL 07/30/19 21:00 10/28/19 20:59 08/03/19 20:56 Olanzapine (ZyPREXA) 2.5 mg BEDTIME ORAL 07/31/19 21:00 09/14/19 20:59 08/03/19 20:56 Ondansetron HCl (Zofran) 4 mg Q6H PRN IVP Nausea & Vomiting 07/24/19 19:15 08/23/19 19:14 Polyethylene Glycol (Miralax) 17 gm HSPRN PRN ORAL Constipation 07/24/19 19:15 08/23/19 19:14 Tamsulosin HCl (Flomax) 0.4 mg DAILY ORAL 07/25/19 09:00 08/24/19 08:59 08/01/19 10:32 Harinder Elena MD Aug 04, 2019 11:27
--- NOTE | 2019-08-04 12:57 | Internal Med Progress Note ---
Subjective Date of Service: Aug 04, 2019 Physician Name Arturo Pratt Attending Physician Rodney Tapia MD Current Medications Medications (Trade) Dose Ordered Sig/Julian Route PRN Reason Start Time Stop Time Status Last Admin Dose Admin Acetaminophen (Tylenol) 650 mg Q4H PRN ORAL fever/mild pain 08/04/19 15:15 08/23/19 19:14 Carbidopa/Levodopa (Sinemet 25/100) 1 tab THREE TIMES A DAY ORAL 07/25/19 09:00 08/24/19 08:59 08/04/19 12:25 Clonidine HCl (Catapres TTS-1) 1 patch QWEEK TDERMAL 07/29/19 18:00 10/27/19 17:59 07/29/19 17:46 Clonidine HCl (Catapres Tab) 0.1 mg Q4H PRN ORAL For High Blood Pressure 07/29/19 09:00 10/27/19 08:59 08/03/19 20:55 Dextrose (Dextrose 50%) 25 ml Q30M PRN IV Hypoglycemia 07/24/19 19:15 10/22/19 19:14 Dextrose (Dextrose 50%) 50 ml Q30M PRN IV Hypoglycemia 07/24/19 19:15 10/22/19 19:14 Heparin Sodium (Porcine) (Heparin 5000 units/ml) 5,000 units EVERY 12 HOURS SUBQ 07/24/19 21:00 09/07/19 20:59 07/31/19 21:51 Lorazepam (Ativan 2mg/ml 1ml) 1 mg Q6H PRN IM Agitation 07/29/19 16:15 08/05/19 16:14 08/03/19 10:16 Mirtazapine (Remeron) 30 mg BEDTIME ORAL 07/30/19 21:00 10/28/19 20:59 08/03/19 20:56 Olanzapine (ZyPREXA) 2.5 mg BEDTIME ORAL 07/31/19 21:00 09/14/19 20:59 08/03/19 20:56 Tamsulosin HCl (Flomax) 0.4 mg DAILY ORAL 07/25/19 09:00 08/24/19 08:59 08/01/19 10:32 Allergies: Coded Allergies: PENICILLINS (Verified Allergy, Unknown, 07/24/19) ROS Limited/Unobtainable: No Constitutional: Reports: no symptoms HEENT: Reports: no symptoms Cardiovascular: Reports: no symptoms Respiratory: Reports: no symptoms Gastrointestinal/Abdominal: Reports: no symptoms Genitourinary: Reports: no symptoms Neurologic/Psychiatric: Reports: no symptoms Subjective 79 YO F with history of Lewey Body dementia, admitted with altered mental status and increased aggression. Cover for Int Med-Dr Tapia. Pulled out IV. S/P endoscopy 07/31/19 Objective Last Vital Signs Date Time Temp Pulse Resp B/P (MAP) Pulse Ox O2 Delivery O2 Flow Rate FiO2 08/04/19 12:00 97.9 77 18 101/62 (75) 95 08/04/19 09:00 Room Air 07/31/19 11:55 6 Laboratory Tests Test 08/04/19 06:55 White Blood Count 12.1 K/UL (4.8-10.8) #H Red Blood Count 4.98 M/UL (4.20-5.40) Hemoglobin 14.0 G/DL (12.0-16.0) Hematocrit 41.0 % (37.0-47.0) Mean Corpuscular Volume 82 FL (80-99) Mean Corpuscular Hemoglobin 28.0 PG (27.0-31.0) Mean Corpuscular Hemoglobin Concent 34.1 G/DL (32.0-36.0) Red Cell Distribution Width 12.1 % (11.6-14.8) Platelet Count 97 K/UL (150-450) L Mean Platelet Volume 10.9 FL (6.5-10.1) H Neutrophils (%) (Auto) % (45.0-75.0) Lymphocytes (%) (Auto) % (20.0-45.0) Monocytes (%) (Auto) % (1.0-10.0) Eosinophils (%) (Auto) % (0.0-3.0) Basophils (%) (Auto) % (0.0-2.0) Differential Total Cells Counted 100 Neutrophils % (Manual) 77 % (45-75) H Lymphocytes % (Manual) 21 % (20-45) Monocytes % (Manual) 2 % (1-10) Eosinophils % (Manual) 0 % (0-3) Basophils % (Manual) 0 % (0-2) Band Neutrophils 0 % (0-8) Platelet Estimate Decreased L Platelet Morphology Normal Red Blood Cell Morphology Normal Sodium Level 138 MMOL/L (136-145) Potassium Level 4.4 MMOL/L (3.5-5.1) Chloride Level 103 MMOL/L (98-107) Carbon Dioxide Level 24 MMOL/L (21-32) Anion Gap 11 mmol/L (5-15) Blood Urea Nitrogen 14 mg/dL (7-18) Creatinine 0.8 MG/DL (0.55-1.30) # Estimat Glomerular Filtration Rate > 60 mL/min (>60) Glucose Level 90 MG/DL (74-106) Calcium Level 9.3 MG/DL (8.5-10.1) Intake and Output 08/03/19 08/04/19 19:00 07:00 Intake Total 550 ml 60 ml Balance 550 ml 60 ml Intake Oral 60 ml IV Total 150 ml Other 400 ml # Voids 4 Objective PHYSICAL EXAMINATION: GENERAL: The patient is awake, responsive, no acute distress, but confused and disoriented. HEENT: Head and neck examination, pupils are equal and reactive to light. Extraocular movements intact. Neck was supple. No JVD. LUNGS: Good air entry. No wheezing or rales. HEART: S1 and S2. Regular rhythm. No gallops. ABDOMEN: Soft, nondistended, nontender. Positive bowel sounds. EXTREMITIES: No cyanosis, clubbing, or edema. NEUROLOGIC: Cranial nerves II through XII grossly normal. The patient moving all the extremities. Gait was not assessed due to the patient's status. RECTAL/GENITOURINARY: Refused and deferred. PSYCHIATRIC: Mood and affect is intact Assessment/Plan Assessment/Plan ASSESSMENT: 1. Altered mental status/encephalopathy. 2. Combative/aggressive behavior. 3. Lewey body dementia. 4. Parkinson disease. 5. Failure to thrive. 6. 07/31/19 EGD=gastritis PLAN: 1. Admit the patient to medical floor. 2. psychiatry consultation=Dr Coburn 3. Haldol as needed for agitation. 4. Resume home medication. 5. DVT prophylaxis. 6. Heparin subcutaneous. 7. Discharge planning: Unable to return to [facility] 8. COVID 19 test neg 9. start pantoprazole; GI=Dr Mittal 10. Discharge planning Arturo Pratt MD Aug 04, 2019 12:57
[2019-08-04] MEDS: LORazepam Inj 2mg/ml 1ml IM PRN (20:25)
--- NOTE | 2019-08-04 22:29 | Psych Consult Progress Note ---
Psychiatry Progress Note Psychiatry Progress Note Subjective the pt fell this am confused agitated Medications Current Medications Medications (Trade) Dose Ordered Sig/Julian Route PRN Reason Start Time Stop Time Status Last Admin Dose Admin Acetaminophen (Tylenol) 650 mg Q4H PRN ORAL fever/mild pain 08/04/19 15:15 08/23/19 19:14 Carbidopa/Levodopa (Sinemet 25/100) 1 tab THREE TIMES A DAY ORAL 07/25/19 09:00 08/24/19 08:59 08/04/19 17:37 Clonidine HCl (Catapres TTS-1) 1 patch QWEEK TDERMAL 07/29/19 18:00 10/27/19 17:59 07/29/19 17:46 Clonidine HCl (Catapres Tab) 0.1 mg Q4H PRN ORAL For High Blood Pressure 07/29/19 09:00 10/27/19 08:59 08/03/19 20:55 Dextrose (Dextrose 50%) 25 ml Q30M PRN IV Hypoglycemia 07/24/19 19:15 10/22/19 19:14 Dextrose (Dextrose 50%) 50 ml Q30M PRN IV Hypoglycemia 07/24/19 19:15 10/22/19 19:14 Heparin Sodium (Porcine) (Heparin 5000 units/ml) 5,000 units EVERY 12 HOURS SUBQ 07/24/19 21:00 09/07/19 20:59 07/31/19 21:51 Lorazepam (Ativan 2mg/ml 1ml) 1 mg Q6H PRN IM Agitation 07/29/19 16:15 08/05/19 16:14 08/04/19 20:25 Mirtazapine (Remeron) 30 mg BEDTIME ORAL 07/30/19 21:00 10/28/19 20:59 08/04/19 20:09 Olanzapine (ZyPREXA) 2.5 mg BEDTIME ORAL 07/31/19 21:00 09/14/19 20:59 08/04/19 20:09 Tamsulosin HCl (Flomax) 0.4 mg DAILY ORAL 07/25/19 09:00 08/24/19 08:59 08/01/19 10:32 Neurological/Psychiatric: Reports: anxiety, emotional problems Allergies: Coded Allergies: PENICILLINS (Verified Allergy, Unknown, 07/24/19) Objective Data Height (Feet): 5 Height (Inches): 6.00 Weight (Pounds): 142 Additional Comments: s alert, disoriented. Mood is neutral. Affect is flat. Thought process, there is a paucity of thought content. Thought content, no suicidal or homicidal ideation. Cognition is impaired. Insight and judgment impaired. Assessment/Plan Assessment/Plan: PLAN: 1. Remeron to 30 mg at bedtime. 2. Continue to follow and readjust the medication. 3. zyprexa 2.5mg po qhs 4. dc restraints. Nguyễn Coburn MD Aug 04, 2019 22:29
[2019-08-05] VITALS: BP 127/75
[2019-08-05 04:00] VITALS: BP 110/72
[2019-08-05 06:33] LABS: HEMATOCRIT 39.7 % (37.0-47.0); HEMOGLOBIN 13.7 G/DL (12.0-16.0); MEAN CORPUSCULAR VOLUME 82 FL (80-99); PLATELET COUNT 85 K/UL (150-450); RED BLOOD COUNT 4.85 M/UL (4.20-5.40); RED CELL DISTRIBUTION WIDTH 11.8 % (11.6-14.8); WHITE BLOOD COUNT 8.9 K/UL (4.8-10.8)
[2019-08-05 07:01] LABS: ANION GAP 10 mmol/L (5-15); BLOOD UREA NITROGEN 17 mg/dL (7-18); CARBON DIOXIDE 27 MMOL/L (21-32); CHLORIDE 104 MMOL/L (98-107); CREATININE 0.5 MG/DL (0.55-1.30); POTASSIUM 3.9 MMOL/L (3.5-5.1); SODIUM 141 MMOL/L (136-145)
[2019-08-05 08:00] VITALS: BP 128/88
[2019-08-05] MEDS: Heparin 5000 units/ml inj SUBQ SCH ×2 (08:27→21:00)
[2019-08-05] MEDS: Tamsulosin 0.4mg cap ORAL SCH (08:31)
[2019-08-05] MEDS: Levodopa/Carbidopa 25/100 tab ORAL SCH ×4 (08:31→18:00)
--- NOTE | 2019-08-05 09:53 | General Progress Note ---
Assessment/Plan Problem List: (1) Psychosis ICD Codes: F29 - Unspecified psychosis not due to a substance or known physiological condition SNOMED: 00683732 (2) Advanced dementia ICD Codes: F03.90 - Unspecified dementia without behavioral disturbance SNOMED: 73781456 (3) Parkinson disease ICD Codes: G20 - Parkinson's disease SNOMED: 83195829 (4) Failure to thrive in adult ICD Codes: R62.7 - Adult failure to thrive SNOMED: 135912536 (5) Altered mental status ICD Codes: R41.82 - Altered mental status, unspecified SNOMED: 095345071 Qualifiers: Qualified Codes: R41.82 - Altered mental status, unspecified (6) Dehydration ICD Codes: E86.0 - Dehydration SNOMED: 25197383 (7) Combative behavior ICD Codes: R46.89 - Other symptoms and signs involving appearance and behavior SNOMED: 379841501 Assessment/Plan: s/p EGD atrophic gastritis appetite stimulant will hold PEG plans for now fu psych recs Subjective ROS Limited/Unobtainable: No Allergies: Coded Allergies: PENICILLINS (Verified Allergy, Unknown, 07/24/19) Objective Last 24 Hour Vital Signs Date Time Temp Pulse Resp B/P (MAP) Pulse Ox O2 Delivery O2 Flow Rate FiO2 08/05/19 08:00 97.7 88 17 128/88 (101) 99 08/05/19 04:00 96.6 80 18 110/72 (85) 95 08/05/19 00:00 97.5 80 18 127/75 (92) 94 08/04/19 21:00 Room Air 08/04/19 20:00 97.1 91 20 122/68 (86) 97 08/04/19 15:24 97.4 78 18 118/53 (74) 96 08/04/19 12:00 97.9 77 18 101/62 (75) 95 Intake and Output 08/04/19 08/05/19 19:00 07:00 Intake Total 460 ml Balance 460 ml Intake Oral 60 ml Other 400 ml # Voids 4 1 # Bowel Movements 1 Laboratory Tests 08/05/19 05:45: White Blood Count 8.9, Red Blood Count 4.85, Hemoglobin 13.7, Hematocrit 39.7, Mean Corpuscular Volume 82, Mean Corpuscular Hemoglobin 28.2, Mean Corpuscular Hemoglobin Concent 34.5, Red Cell Distribution Width 11.8, Platelet Count 85L, Mean Platelet Volume 13.6H, Neutrophils (%) (Auto) , Lymphocytes (%) (Auto) , Monocytes (%) (Auto) , Eosinophils (%) (Auto) , Basophils (%) (Auto) , Differential Total Cells Counted 100, Neutrophils % (Manual) 62, Lymphocytes % ( Manual) 25, Monocytes % (Manual) 12H, Eosinophils % (Manual) 1, Basophils % ( Manual) 0, Band Neutrophils 0, Platelet Estimate DecreasedL, Platelet Morphology Normal, Anisocytosis 1+, Sodium Level 141, Potassium Level 3.9, Chloride Level 104, Carbon Dioxide Level 27, Anion Gap 10, Blood Urea Nitrogen 17, Creatinine 0.5L, Estimat Glomerular Filtration Rate > 60, Glucose Level 97, Calcium Level 9.0 Height (Feet): 5 Height (Inches): 6.00 Weight (Pounds): 142 General Appearance: lethargic EENT: normal ENT inspection Neck: supple Cardiovascular: normal rate Respiratory/Chest: decreased breath sounds Abdomen: normal bowel sounds, non tender, soft Extremities: non-tender Franky Mittal MD Aug 05, 2019 09:53
[2019-08-05 12:00] VITALS: BP 109/56
--- NOTE | 2019-08-05 13:53 | Pulmonology Progress Note ---
Assessment/Plan Problems: (1) Combative behavior (2) Failure to thrive in adult (3) Psychosis (4) Advanced dementia (5) Parkinson disease Assessment/Plan all reviewed, Remeron was increased and Zyprexa at bed time calmer now all reviewed doing better, eating better symptomatic treatment dc planning Subjective ROS Limited/Unobtainable: No Constitutional: Reports: no symptoms HEENT: Repors: no symptoms Respiratory: Reports: no symptoms Allergies: Coded Allergies: PENICILLINS (Verified Allergy, Unknown, 07/24/19) Objective Last 24 Hour Vital Signs Date Time Temp Pulse Resp B/P (MAP) Pulse Ox O2 Delivery O2 Flow Rate FiO2 08/05/19 09:00 Room Air 08/05/19 08:00 97.7 88 17 128/88 (101) 99 08/05/19 04:00 96.6 80 18 110/72 (85) 95 08/05/19 00:00 97.5 80 18 127/75 (92) 94 08/04/19 21:00 Room Air 08/04/19 20:00 97.1 91 20 122/68 (86) 97 08/04/19 15:24 97.4 78 18 118/53 (74) 96 Intake and Output 08/04/19 08/05/19 19:00 07:00 Intake Total 460 ml Balance 460 ml Intake Oral 60 ml Other 400 ml # Voids 4 1 # Bowel Movements 1 Objective General Appearance: WD/WN HEENT: normocephalic, anicteric Respiratory/Chest: chest wall non-tender, lungs clear Cardiovascular: normal peripheral pulses, normal rate Abdomen: normal bowel sounds, soft, non tender Genitourinary: normal external genitalia Laboratory Tests 08/05/19 05:45: White Blood Count 8.9, Red Blood Count 4.85, Hemoglobin 13.7, Hematocrit 39.7, Mean Corpuscular Volume 82, Mean Corpuscular Hemoglobin 28.2, Mean Corpuscular Hemoglobin Concent 34.5, Red Cell Distribution Width 11.8, Platelet Count 85L, Mean Platelet Volume 13.6H, Neutrophils (%) (Auto) , Lymphocytes (%) (Auto) , Monocytes (%) (Auto) , Eosinophils (%) (Auto) , Basophils (%) (Auto) , Differential Total Cells Counted 100, Neutrophils % (Manual) 62, Lymphocytes % ( Manual) 25, Monocytes % (Manual) 12H, Eosinophils % (Manual) 1, Basophils % ( Manual) 0, Band Neutrophils 0, Platelet Estimate DecreasedL, Platelet Morphology Normal, Anisocytosis 1+, Sodium Level 141, Potassium Level 3.9, Chloride Level 104, Carbon Dioxide Level 27, Anion Gap 10, Blood Urea Nitrogen 17, Creatinine 0.5L, Estimat Glomerular Filtration Rate > 60, Glucose Level 97, Calcium Level 9.0 Current Medications Medications (Trade) Dose Ordered Sig/Julain Route PRN Reason Start Time Stop Time Status Last Admin Dose Admin Acetaminophen (Tylenol) 650 mg Q4H PRN ORAL fever/mild pain 08/04/19 15:15 08/23/19 19:14 Carbidopa/Levodopa (Sinemet 25/) 1 tab THREE TIMES A DAY ORAL 07/25/19 09:00 08/24/19 08:59 08/05/19 13:47 Clonidine HCl (Catapres TTS-1) 1 patch QWEEK TDERMAL 07/29/19 18:00 10/27/19 17:59 07/29/19 17:46 Clonidine HCl (Catapres Tab) 0.1 mg Q4H PRN ORAL For High Blood Pressure 07/29/19 09:00 10/27/19 08:59 08/03/19 20:55 Dextrose (Dextrose 50%) 25 ml Q30M PRN IV Hypoglycemia 07/24/19 19:15 10/22/19 19:14 Dextrose (Dextrose 50%) 50 ml Q30M PRN IV Hypoglycemia 07/24/19 19:15 10/22/19 19:14 Heparin Sodium (Porcine) (Heparin 5000 units/ml) 5,000 units EVERY 12 HOURS SUBQ 07/24/19 21:00 09/07/19 20:59 07/31/19 21:51 Lorazepam (Ativan 2mg/ml 1ml) 1 mg Q6H PRN IM Agitation 07/29/19 16:15 08/05/19 16:14 08/04/19 20:25 Mirtazapine (Remeron) 30 mg BEDTIME ORAL 07/30/19 21:00 10/28/19 20:59 08/04/19 20:09 Olanzapine (ZyPREXA) 2.5 mg BEDTIME ORAL 07/31/19 21:00 09/14/19 20:59 08/04/19 20:09 Tamsulosin HCl (Flomax) 0.4 mg DAILY ORAL 07/25/19 09:00 08/24/19 08:59 08/05/19 08:31 Harinder Elena MD Aug 05, 2019 13:53
--- NOTE | 2019-08-05 15:56 | Internal Med Progress Note ---
Subjective Date of Service: Aug 05, 2019 Physician Name Arturo Pratt Attending Physician Rodney Tapia MD Current Medications Medications (Trade) Dose Ordered Sig/Julian Route PRN Reason Start Time Stop Time Status Last Admin Dose Admin Acetaminophen (Tylenol) 650 mg Q4H PRN ORAL fever/mild pain 08/04/19 15:15 08/23/19 19:14 Carbidopa/Levodopa (Sinemet 25/100) 1 tab THREE TIMES A DAY ORAL 07/25/19 09:00 08/24/19 08:59 08/05/19 13:47 Clonidine HCl (Catapres TTS-1) 1 patch QWEEK TDERMAL 07/29/19 18:00 10/27/19 17:59 07/29/19 17:46 Clonidine HCl (Catapres Tab) 0.1 mg Q4H PRN ORAL For High Blood Pressure 07/29/19 09:00 10/27/19 08:59 08/03/19 20:55 Dextrose (Dextrose 50%) 25 ml Q30M PRN IV Hypoglycemia 07/24/19 19:15 10/22/19 19:14 Dextrose (Dextrose 50%) 50 ml Q30M PRN IV Hypoglycemia 07/24/19 19:15 10/22/19 19:14 Heparin Sodium (Porcine) (Heparin 5000 units/ml) 5,000 units EVERY 12 HOURS SUBQ 07/24/19 21:00 09/07/19 20:59 07/31/19 21:51 Lorazepam (Ativan 2mg/ml 1ml) 1 mg Q6H PRN IM Agitation 07/29/19 16:15 08/05/19 16:14 08/04/19 20:25 Mirtazapine (Remeron) 30 mg BEDTIME ORAL 07/30/19 21:00 10/28/19 20:59 08/04/19 20:09 Olanzapine (ZyPREXA) 2.5 mg BEDTIME ORAL 07/31/19 21:00 09/14/19 20:59 08/04/19 20:09 Tamsulosin HCl (Flomax) 0.4 mg DAILY ORAL 07/25/19 09:00 08/24/19 08:59 08/05/19 08:31 Allergies: Coded Allergies: PENICILLINS (Verified Allergy, Unknown, 07/24/19) ROS Limited/Unobtainable: No Constitutional: Reports: no symptoms HEENT: Reports: no symptoms Cardiovascular: Reports: no symptoms Respiratory: Reports: no symptoms Gastrointestinal/Abdominal: Reports: no symptoms Genitourinary: Reports: no symptoms Neurologic/Psychiatric: Reports: no symptoms Subjective 79 YO F with history of Lewey Body dementia, admitted with altered mental status and increased aggression. Cover for Int Med-Dr Tapia. Pulled out IV. S/P endoscopy 07/31/19 Objective Last Vital Signs Date Time Temp Pulse Resp B/P (MAP) Pulse Ox O2 Delivery O2 Flow Rate FiO2 08/05/19 12:00 98.0 74 18 109/56 (73) 97 08/05/19 09:00 Room Air 07/31/19 11:55 6 Laboratory Tests Test 08/05/19 05:45 White Blood Count 8.9 K/UL (4.8-10.8) Red Blood Count 4.85 M/UL (4.20-5.40) Hemoglobin 13.7 G/DL (12.0-16.0) Hematocrit 39.7 % (37.0-47.0) Mean Corpuscular Volume 82 FL (80-99) Mean Corpuscular Hemoglobin 28.2 PG (27.0-31.0) Mean Corpuscular Hemoglobin Concent 34.5 G/DL (32.0-36.0) Red Cell Distribution Width 11.8 % (11.6-14.8) Platelet Count 85 K/UL (150-450) L Mean Platelet Volume 13.6 FL (6.5-10.1) H Neutrophils (%) (Auto) % (45.0-75.0) Lymphocytes (%) (Auto) % (20.0-45.0) Monocytes (%) (Auto) % (1.0-10.0) Eosinophils (%) (Auto) % (0.0-3.0) Basophils (%) (Auto) % (0.0-2.0) Differential Total Cells Counted 100 Neutrophils % (Manual) 62 % (45-75) Lymphocytes % (Manual) 25 % (20-45) Monocytes % (Manual) 12 % (1-10) H Eosinophils % (Manual) 1 % (0-3) Basophils % (Manual) 0 % (0-2) Band Neutrophils 0 % (0-8) Platelet Estimate Decreased L Platelet Morphology Normal Anisocytosis 1+ Sodium Level 141 MMOL/L (136-145) Potassium Level 3.9 MMOL/L (3.5-5.1) Chloride Level 104 MMOL/L (98-107) Carbon Dioxide Level 27 MMOL/L (21-32) Anion Gap 10 mmol/L (5-15) Blood Urea Nitrogen 17 mg/dL (7-18) Creatinine 0.5 MG/DL (0.55-1.30) L Estimat Glomerular Filtration Rate > 60 mL/min (>60) Glucose Level 97 MG/DL (74-106) Calcium Level 9.0 MG/DL (8.5-10.1) Intake and Output 08/04/19 08/05/19 19:00 07:00 Intake Total 460 ml Balance 460 ml Intake Oral 60 ml Other 400 ml # Voids 4 1 # Bowel Movements 1 Objective PHYSICAL EXAMINATION: GENERAL: The patient is awake, responsive, no acute distress, but confused and disoriented. HEENT: Head and neck examination, pupils are equal and reactive to light. Extraocular movements intact. Neck was supple. No JVD. LUNGS: Good air entry. No wheezing or rales. HEART: S1 and S2. Regular rhythm. No gallops. ABDOMEN: Soft, nondistended, nontender. Positive bowel sounds. EXTREMITIES: No cyanosis, clubbing, or edema. NEUROLOGIC: Cranial nerves II through XII grossly normal. The patient moving all the extremities. Gait was not assessed due to the patient's status. RECTAL/GENITOURINARY: Refused and deferred. PSYCHIATRIC: Mood and affect is intact Assessment/Plan Assessment/Plan ASSESSMENT: 1. Altered mental status/encephalopathy. 2. Combative/aggressive behavior. 3. Lewey body dementia. 4. Parkinson disease. 5. Failure to thrive. 6. 07/31/19 EGD=gastritis PLAN: 1. Admit the patient to medical floor. 2. psychiatry consultation=Dr Coburn 3. Haldol as needed for agitation. 4. Resume home medication. 5. DVT prophylaxis. 6. Heparin subcutaneous. 7. COVID 19 test neg 8. start pantoprazole; GI=Dr Mittal 9. Discharge planning: Unable to return to [facility]; [facility] acute possible Arturo Pratt MD Aug 05, 2019 15:56
[2019-08-05 16:00] VITALS: BP 120/60
[2019-08-05 20:00] VITALS: BP 125/86
--- NOTE | 2019-08-05 23:01 | Psych Consult Progress Note ---
Psychiatry Progress Note Psychiatry Progress Note Subjective the pt is same poor appetite Medications Current Medications Medications (Trade) Dose Ordered Sig/Julian Route PRN Reason Start Time Stop Time Status Last Admin Dose Admin Acetaminophen (Tylenol) 650 mg Q4H PRN ORAL fever/mild pain 08/04/19 15:15 08/23/19 19:14 Carbidopa/Levodopa (Sinemet 25/100) 1 tab THREE TIMES A DAY ORAL 07/25/19 09:00 08/24/19 08:59 08/05/19 13:47 Clonidine HCl (Catapres TTS-1) 1 patch QWEEK TDERMAL 07/29/19 18:00 10/27/19 17:59 08/05/19 17:58 Clonidine HCl (Catapres Tab) 0.1 mg Q4H PRN ORAL For High Blood Pressure 07/29/19 09:00 10/27/19 08:59 08/03/19 20:55 Dextrose (Dextrose 50%) 25 ml Q30M PRN IV Hypoglycemia 07/24/19 19:15 10/22/19 19:14 Dextrose (Dextrose 50%) 50 ml Q30M PRN IV Hypoglycemia 07/24/19 19:15 10/22/19 19:14 Heparin Sodium (Porcine) (Heparin 5000 units/ml) 5,000 units EVERY 12 HOURS SUBQ 07/24/19 21:00 09/07/19 20:59 07/31/19 21:51 Mirtazapine (Remeron) 30 mg BEDTIME ORAL 07/30/19 21:00 10/28/19 20:59 08/04/19 20:09 Olanzapine (ZyPREXA) 2.5 mg BEDTIME ORAL 07/31/19 21:00 09/14/19 20:59 08/04/19 20:09 Tamsulosin HCl (Flomax) 0.4 mg DAILY ORAL 07/25/19 09:00 08/24/19 08:59 08/05/19 08:31 Neurological/Psychiatric: Reports: anxiety, depressed, emotional problems Allergies: Coded Allergies: PENICILLINS (Verified Allergy, Unknown, 07/24/19) Objective Data Height (Feet): 5 Height (Inches): 6.00 Weight (Pounds): 142 General Appearance: no apparent distress, alert, confused Behavior Mannerisms: good eye contact Mental Status Exam - Affect: blunted Mental Status Exam - Mood: depressed Speech: clear Mental Status Exam - Thought P: tangential, confusion Mental Status Exam - Suicidal: not present Assessment/Plan Status: stable Assessment/Plan: PLAN: 1. Remeron to 30 mg at bedtime. 2. Continue to follow and readjust the medication. 3. zyprexa 2.5mg po qhs 4. dc restraints. Nguyễn Coburn MD Aug 05, 2019 23:01
[2019-08-06] VITALS (7 sets, daily range): BP systolic 110–156; BP diastolic 65–96
[2019-08-06 06:34] LABS: ANION GAP 12 mmol/L (5-15); BLOOD UREA NITROGEN 22 mg/dL (7-18); CALCIUM 9.2 MG/DL (8.5-10.1); CARBON DIOXIDE 25 MMOL/L (21-32); CHLORIDE 104 MMOL/L (98-107); CREATININE 0.5 MG/DL (0.55-1.30); POTASSIUM 3.6 MMOL/L (3.5-5.1); SODIUM 141 MMOL/L (136-145)
[2019-08-06 06:55] LABS: BASOPHILS % (AUTO) 0.8 % (0.0-2.0); HEMATOCRIT 42.7 % (37.0-47.0); HEMOGLOBIN 14.4 G/DL (12.0-16.0); MEAN CORPUSCULAR VOLUME 83 FL (80-99); MONOCYTES % (AUTO) 8.8 % (1.0-10.0); NEUTROPHILS % (AUTO) 66.4 % (45.0-75.0); PLATELET COUNT 103 K/UL (150-450); RED BLOOD COUNT 5.15 M/UL (4.20-5.40); RED CELL DISTRIBUTION WIDTH 12.4 % (11.6-14.8); WHITE BLOOD COUNT 9.4 K/UL (4.8-10.8)
[2019-08-06] MEDS: Heparin 5000 units/ml inj SUBQ SCH ×2 (09:00→21:00)
[2019-08-06] MEDS: Tamsulosin 0.4mg cap ORAL SCH ×2 (09:00→10:01)
[2019-08-06] MEDS: Levodopa/Carbidopa 25/100 tab ORAL SCH ×4 (09:00→18:00)
--- NOTE | 2019-08-06 09:42 | General Progress Note ---
Assessment/Plan Problem List: (1) Psychosis ICD Codes: F29 - Unspecified psychosis not due to a substance or known physiological condition SNOMED: 38928107 (2) Advanced dementia ICD Codes: F03.90 - Unspecified dementia without behavioral disturbance SNOMED: 00983218 (3) Parkinson disease ICD Codes: G20 - Parkinson's disease SNOMED: 42291967 (4) Failure to thrive in adult ICD Codes: R62.7 - Adult failure to thrive SNOMED: 601045032 (5) Altered mental status ICD Codes: R41.82 - Altered mental status, unspecified SNOMED: 353992501 Qualifiers: Qualified Codes: R41.82 - Altered mental status, unspecified (6) Dehydration ICD Codes: E86.0 - Dehydration SNOMED: 58969372 (7) Combative behavior ICD Codes: R46.89 - Other symptoms and signs involving appearance and behavior SNOMED: 201131589 Status: stable Assessment/Plan: s/p EGD atrophic gastritis appetite stimulant will hold PEG plans for now fu psych recs Subjective ROS Limited/Unobtainable: No Allergies: Coded Allergies: PENICILLINS (Verified Allergy, Unknown, 07/24/19) Objective Last 24 Hour Vital Signs Date Time Temp Pulse Resp B/P (MAP) Pulse Ox O2 Delivery O2 Flow Rate FiO2 08/06/19 08:00 97.7 84 19 156/84 (108) 100 08/06/19 04:00 98.2 78 20 142/74 (96) 96 08/06/19 00:00 98.0 82 20 132/65 (87) 97 08/05/19 21:00 Room Air 08/05/19 20:00 98.3 81 20 125/86 (99) 96 08/05/19 17:58 141/78 08/05/19 16:00 98.9 78 17 120/60 (80) 99 08/05/19 12:00 98.0 74 18 109/56 (73) 97 Laboratory Tests 08/06/19 05:40: White Blood Count 9.4, Red Blood Count 5.15, Hemoglobin 14.4, Hematocrit 42.7, Mean Corpuscular Volume 83, Mean Corpuscular Hemoglobin 28.0, Mean Corpuscular Hemoglobin Concent 33.8, Red Cell Distribution Width 12.4, Platelet Count 103L, Mean Platelet Volume 10.5H, Neutrophils (%) (Auto) 66.4, Lymphocytes (%) (Auto) 23.0, Monocytes (%) (Auto) 8.8, Eosinophils (%) (Auto) 1.0, Basophils (%) (Auto ) 0.8, Sodium Level 141, Potassium Level 3.6, Chloride Level 104, Carbon Dioxide Level 25, Anion Gap 12, Blood Urea Nitrogen 22H, Creatinine 0.5L, Estimat Glomerular Filtration Rate > 60, Glucose Level 77, Calcium Level 9.2 Height (Feet): 5 Height (Inches): 6.00 Weight (Pounds): 137 General Appearance: alert EENT: normal ENT inspection Neck: supple Cardiovascular: normal rate Respiratory/Chest: decreased breath sounds Abdomen: normal bowel sounds, non tender, soft Extremities: non-tender Franky Mittal MD Aug 06, 2019 09:42
--- NOTE | 2019-08-06 12:37 | Pulmonology Progress Note ---
Assessment/Plan Problems: (1) Combative behavior (2) Failure to thrive in adult (3) Psychosis (4) Advanced dementia (5) Parkinson disease Assessment/Plan all reviewed, Remeron was increased and Zyprexa at bed time calmer now all reviewed doing better, eating better symptomatic treatment dc planning Subjective ROS Limited/Unobtainable: No Constitutional: Reports: no symptoms HEENT: Repors: no symptoms Respiratory: Reports: no symptoms Allergies: Coded Allergies: PENICILLINS (Verified Allergy, Unknown, 07/24/19) Objective Last 24 Hour Vital Signs Date Time Temp Pulse Resp B/P (MAP) Pulse Ox O2 Delivery O2 Flow Rate FiO2 08/06/19 12:00 97.7 84 19 139/77 (97) 96 08/06/19 09:00 Room Air 08/06/19 08:00 97.7 84 19 156/84 (108) 100 08/06/19 04:00 98.2 78 20 142/74 (96) 96 08/06/19 00:00 98.0 82 20 132/65 (87) 97 08/05/19 21:00 Room Air 08/05/19 20:00 98.3 81 20 125/86 (99) 96 08/05/19 17:58 141/78 08/05/19 16:00 98.9 78 17 120/60 (80) 99 Objective General Appearance: WD/WN HEENT: normocephalic, anicteric Respiratory/Chest: chest wall non-tender, lungs clear Cardiovascular: normal peripheral pulses, normal rate Abdomen: normal bowel sounds, soft, non tender Genitourinary: normal external genitalia Laboratory Tests 08/06/19 05:40: White Blood Count 9.4, Red Blood Count 5.15, Hemoglobin 14.4, Hematocrit 42.7, Mean Corpuscular Volume 83, Mean Corpuscular Hemoglobin 28.0, Mean Corpuscular Hemoglobin Concent 33.8, Red Cell Distribution Width 12.4, Platelet Count 103L, Mean Platelet Volume 10.5H, Neutrophils (%) (Auto) 66.4, Lymphocytes (%) (Auto) 23.0, Monocytes (%) (Auto) 8.8, Eosinophils (%) (Auto) 1.0, Basophils (%) (Auto ) 0.8, Sodium Level 141, Potassium Level 3.6, Chloride Level 104, Carbon Dioxide Level 25, Anion Gap 12, Blood Urea Nitrogen 22H, Creatinine 0.5L, Estimat Glomerular Filtration Rate > 60, Glucose Level 77, Calcium Level 9.2 Current Medications Medications (Trade) Dose Ordered Sig/Julian Route PRN Reason Start Time Stop Time Status Last Admin Dose Admin Acetaminophen (Tylenol) 650 mg Q4H PRN ORAL fever/mild pain 08/04/19 15:15 08/23/19 19:14 Carbidopa/Levodopa (Sinemet 25/100) 1 tab THREE TIMES A DAY ORAL 07/25/19 09:00 08/24/19 08:59 08/05/19 13:47 Clonidine HCl (Catapres TTS-1) 1 patch QWEEK TDERMAL 07/29/19 18:00 10/27/19 17:59 08/05/19 17:58 Clonidine HCl (Catapres Tab) 0.1 mg Q4H PRN ORAL For High Blood Pressure 07/29/19 09:00 10/27/19 08:59 08/03/19 20:55 Dextrose (Dextrose 50%) 25 ml Q30M PRN IV Hypoglycemia 07/24/19 19:15 10/22/19 19:14 Dextrose (Dextrose 50%) 50 ml Q30M PRN IV Hypoglycemia 07/24/19 19:15 10/22/19 19:14 Heparin Sodium (Porcine) (Heparin 5000 units/ml) 5,000 units EVERY 12 HOURS SUBQ 07/24/19 21:00 09/07/19 20:59 07/31/19 21:51 Mirtazapine (Remeron) 30 mg BEDTIME ORAL 07/30/19 21:00 10/28/19 20:59 08/04/19 20:09 Olanzapine (ZyPREXA) 2.5 mg BEDTIME ORAL 07/31/19 21:00 09/14/19 20:59 08/04/19 20:09 Tamsulosin HCl (Flomax) 0.4 mg DAILY ORAL 07/25/19 09:00 08/24/19 08:59 08/05/19 08:31 Harinder Elena MD Aug 06, 2019 12:37
--- NOTE | 2019-08-06 13:13 | Internal Med Progress Note ---
Subjective Date of Service: Aug 06, 2019 Physician Name Arturo Pratt Attending Physician Rodney Tapia MD Current Medications Medications (Trade) Dose Ordered Sig/Julian Route PRN Reason Start Time Stop Time Status Last Admin Dose Admin Acetaminophen (Tylenol) 650 mg Q4H PRN ORAL fever/mild pain 08/04/19 15:15 08/23/19 19:14 Carbidopa/Levodopa (Sinemet 25/100) 1 tab THREE TIMES A DAY ORAL 07/25/19 09:00 08/24/19 08:59 08/05/19 13:47 Clonidine HCl (Catapres TTS-1) 1 patch QWEEK TDERMAL 07/29/19 18:00 10/27/19 17:59 08/05/19 17:58 Clonidine HCl (Catapres Tab) 0.1 mg Q4H PRN ORAL For High Blood Pressure 07/29/19 09:00 10/27/19 08:59 08/03/19 20:55 Dextrose (Dextrose 50%) 25 ml Q30M PRN IV Hypoglycemia 07/24/19 19:15 10/22/19 19:14 Dextrose (Dextrose 50%) 50 ml Q30M PRN IV Hypoglycemia 07/24/19 19:15 10/22/19 19:14 Heparin Sodium (Porcine) (Heparin 5000 units/ml) 5,000 units EVERY 12 HOURS SUBQ 07/24/19 21:00 09/07/19 20:59 07/31/19 21:51 Mirtazapine (Remeron) 30 mg BEDTIME ORAL 07/30/19 21:00 10/28/19 20:59 08/04/19 20:09 Olanzapine (ZyPREXA) 2.5 mg BEDTIME ORAL 07/31/19 21:00 09/14/19 20:59 08/04/19 20:09 Tamsulosin HCl (Flomax) 0.4 mg DAILY ORAL 07/25/19 09:00 08/24/19 08:59 08/05/19 08:31 Allergies: Coded Allergies: PENICILLINS (Verified Allergy, Unknown, 07/24/19) ROS Limited/Unobtainable: No Constitutional: Reports: no symptoms HEENT: Reports: no symptoms Cardiovascular: Reports: no symptoms Respiratory: Reports: no symptoms Gastrointestinal/Abdominal: Reports: no symptoms Genitourinary: Reports: no symptoms Neurologic/Psychiatric: Reports: no symptoms Subjective 79 YO F with history of Lewey Body dementia, admitted with altered mental status and increased aggression. Cover for Int Med-Dr Tapia. Pulled out IV. S/P endoscopy 07/31/19 Objective Last Vital Signs Date Time Temp Pulse Resp B/P (MAP) Pulse Ox O2 Delivery O2 Flow Rate FiO2 08/06/19 12:00 97.7 84 19 139/77 (97) 96 08/06/19 09:00 Room Air 07/31/19 11:55 6 Laboratory Tests Test 08/06/19 05:40 White Blood Count 9.4 K/UL (4.8-10.8) Red Blood Count 5.15 M/UL (4.20-5.40) Hemoglobin 14.4 G/DL (12.0-16.0) Hematocrit 42.7 % (37.0-47.0) Mean Corpuscular Volume 83 FL (80-99) Mean Corpuscular Hemoglobin 28.0 PG (27.0-31.0) Mean Corpuscular Hemoglobin Concent 33.8 G/DL (32.0-36.0) Red Cell Distribution Width 12.4 % (11.6-14.8) Platelet Count 103 K/UL (150-450) L Mean Platelet Volume 10.5 FL (6.5-10.1) H Neutrophils (%) (Auto) 66.4 % (45.0-75.0) Lymphocytes (%) (Auto) 23.0 % (20.0-45.0) Monocytes (%) (Auto) 8.8 % (1.0-10.0) Eosinophils (%) (Auto) 1.0 % (0.0-3.0) Basophils (%) (Auto) 0.8 % (0.0-2.0) Sodium Level 141 MMOL/L (136-145) Potassium Level 3.6 MMOL/L (3.5-5.1) Chloride Level 104 MMOL/L (98-107) Carbon Dioxide Level 25 MMOL/L (21-32) Anion Gap 12 mmol/L (5-15) Blood Urea Nitrogen 22 mg/dL (7-18) H Creatinine 0.5 MG/DL (0.55-1.30) L Estimat Glomerular Filtration Rate > 60 mL/min (>60) Glucose Level 77 MG/DL (74-106) Calcium Level 9.2 MG/DL (8.5-10.1) Objective PHYSICAL EXAMINATION: GENERAL: The patient is awake, responsive, no acute distress, but confused and disoriented. HEENT: Head and neck examination, pupils are equal and reactive to light. Extraocular movements intact. Neck was supple. No JVD. LUNGS: Good air entry. No wheezing or rales. HEART: S1 and S2. Regular rhythm. No gallops. ABDOMEN: Soft, nondistended, nontender. Positive bowel sounds. EXTREMITIES: No cyanosis, clubbing, or edema. NEUROLOGIC: Cranial nerves II through XII grossly normal. The patient moving all the extremities. Gait was not assessed due to the patient's status. RECTAL/GENITOURINARY: Refused and deferred. PSYCHIATRIC: Mood and affect is intact Assessment/Plan Assessment/Plan ASSESSMENT: 1. Altered mental status/encephalopathy. 2. Combative/aggressive behavior. 3. Lewey body dementia. 4. Parkinson disease. 5. Failure to thrive. 6. 07/31/19 EGD=gastritis PLAN: 1. Admit the patient to medical floor. 2. psychiatry consultation=Dr Coburn 3. Haldol as needed for agitation. 4. Resume home medication. 5. DVT prophylaxis. 6. Heparin subcutaneous. 7. COVID 19 test neg 8. start pantoprazole; GI=Dr Mittal 9. Discharge planning: Unable to return to [facility]; D/C to residential fac when bed available Arturo Pratt MD Aug 06, 2019 13:13
[2019-08-06] MEDS ORDERED: LORazepam Inj 2mg/ml 1ml IM PRN (19:30)
--- NOTE | 2019-08-06 22:30 | Psych Consult Progress Note ---
Psychiatry Progress Note Psychiatry Progress Note Medications Current Medications Medications (Trade) Dose Ordered Sig/Julian Route PRN Reason Start Time Stop Time Status Last Admin Dose Admin Acetaminophen (Tylenol) 650 mg Q4H PRN ORAL fever/mild pain 08/04/19 15:15 08/23/19 19:14 Carbidopa/Levodopa (Sinemet 25/100) 1 tab THREE TIMES A DAY ORAL 07/25/19 09:00 08/24/19 08:59 08/05/19 13:47 Clonidine HCl (Catapres TTS-1) 1 patch QWEEK TDERMAL 07/29/19 18:00 10/27/19 17:59 08/05/19 17:58 Clonidine HCl (Catapres Tab) 0.1 mg Q4H PRN ORAL For High Blood Pressure 07/29/19 09:00 10/27/19 08:59 08/03/19 20:55 Dextrose (Dextrose 50%) 25 ml Q30M PRN IV Hypoglycemia 07/24/19 19:15 10/22/19 19:14 Dextrose (Dextrose 50%) 50 ml Q30M PRN IV Hypoglycemia 07/24/19 19:15 10/22/19 19:14 Heparin Sodium (Porcine) (Heparin 5000 units/ml) 5,000 units EVERY 12 HOURS SUBQ 07/24/19 21:00 09/07/19 20:59 07/31/19 21:51 Lorazepam (Ativan 2mg/ml 1ml) 1 mg Q6HR PRN IM agitation 08/06/19 19:30 08/13/19 19:29 Mirtazapine (Remeron) 30 mg BEDTIME ORAL 07/30/19 21:00 10/28/19 20:59 08/04/19 20:09 Olanzapine (ZyPREXA) 2.5 mg BEDTIME ORAL 07/31/19 21:00 09/14/19 20:59 08/04/19 20:09 Tamsulosin HCl (Flomax) 0.4 mg DAILY ORAL 07/25/19 09:00 08/24/19 08:59 08/05/19 08:31 Allergies: Coded Allergies: PENICILLINS (Verified Allergy, Unknown, 07/24/19) Objective Data Height (Feet): 5 Height (Inches): 6.00 Weight (Pounds): 137 Assessment/Plan Status: stable Assessment/Plan: PLAN: 1. Remeron to 30 mg at bedtime. 2. Continue to follow and readjust the medication. 3. zyprexa 2.5mg po qhs 4. dc restraints. Nguyễn Coburn MD Aug 06, 2019 22:29
[2019-08-07] VITALS: BP 140/90
[2019-08-07 04:00] VITALS: BP 128/74
[2019-08-07 08:00] VITALS: BP 151/82
[2019-08-07 09:00] VITALS: BP 120/66
[2019-08-07] MEDS: Heparin 5000 units/ml inj SUBQ SCH (09:00)
[2019-08-07 09:29] LABS: BASOPHILS % (AUTO) 0.7 % (0.0-2.0); EOSINOPHILS % (AUTO) 0.6 % (0.0-3.0); HEMATOCRIT 40.6 % (37.0-47.0); HEMOGLOBIN 13.9 G/DL (12.0-16.0); LYMPHOCYTES % (AUTO) 15.7 % (20.0-45.0); MEAN CORPUSCULAR VOLUME 82 FL (80-99); MONOCYTES % (AUTO) 7.2 % (1.0-10.0); NEUTROPHILS % (AUTO) 75.8 % (45.0-75.0); PLATELET COUNT 115 K/UL (150-450); RED BLOOD COUNT 4.94 M/UL (4.20-5.40); RED CELL DISTRIBUTION WIDTH 12.4 % (11.6-14.8); WHITE BLOOD COUNT 9.2 K/UL (4.8-10.8)
[2019-08-07] MEDS: Levodopa/Carbidopa 25/100 tab ORAL SCH ×3 (09:52→19:23)
[2019-08-07] MEDS: Tamsulosin 0.4mg cap ORAL SCH (09:54)
--- NOTE | 2019-08-07 10:37 | General Progress Note ---
Assessment/Plan Problem List: (1) Psychosis ICD Codes: F29 - Unspecified psychosis not due to a substance or known physiological condition SNOMED: 27853693 (2) Advanced dementia ICD Codes: F03.90 - Unspecified dementia without behavioral disturbance SNOMED: 83505147 (3) Parkinson disease ICD Codes: G20 - Parkinson's disease SNOMED: 12775790 (4) Failure to thrive in adult ICD Codes: R62.7 - Adult failure to thrive SNOMED: 792566487 (5) Altered mental status ICD Codes: R41.82 - Altered mental status, unspecified SNOMED: 196932040 Qualifiers: Qualified Codes: R41.82 - Altered mental status, unspecified (6) Dehydration ICD Codes: E86.0 - Dehydration SNOMED: 56190863 (7) Combative behavior ICD Codes: R46.89 - Other symptoms and signs involving appearance and behavior SNOMED: 149619629 Status: stable Assessment/Plan: s/p EGD atrophic gastritis appetite stimulant will hold PEG plans for now fu psych recs Subjective ROS Limited/Unobtainable: No Allergies: Coded Allergies: PENICILLINS (Verified Allergy, Unknown, 07/24/19) Objective Last 24 Hour Vital Signs Date Time Temp Pulse Resp B/P (MAP) Pulse Ox O2 Delivery O2 Flow Rate FiO2 08/07/19 08:00 97.0 77 20 151/82 (105) 96 08/07/19 04:00 97.9 84 20 128/74 (92) 84 08/07/19 00:00 98.0 98 20 140/90 (107) 96 08/06/19 22:00 98.4 98 20 110/69 (83) 95 08/06/19 21:00 Room Air 08/06/19 20:00 98.4 98 20 110/69 (83) 95 08/06/19 16:00 97.9 85 20 154/96 (115) 96 08/06/19 12:00 97.7 84 19 139/77 (97) 96 Intake and Output 08/06/19 08/07/19 19:00 07:00 Intake Total 120 ml Balance 120 ml Intake Oral 120 ml # Voids 1 1 Laboratory Tests 08/07/19 09:00: White Blood Count 9.2, Red Blood Count 4.94, Hemoglobin 13.9, Hematocrit 40.6, Mean Corpuscular Volume 82, Mean Corpuscular Hemoglobin 28.2, Mean Corpuscular Hemoglobin Concent 34.4, Red Cell Distribution Width 12.4, Platelet Count 115L, Mean Platelet Volume 10.7H, Neutrophils (%) (Auto) 75.8H, Lymphocytes (%) (Auto ) 15.7L, Monocytes (%) (Auto) 7.2, Eosinophils (%) (Auto) 0.6, Basophils (%) ( Auto) 0.7, Sodium Level [Pending], Potassium Level [Pending], Chloride Level [ Pending], Carbon Dioxide Level [Pending], Blood Urea Nitrogen [Pending], Creatinine [Pending], Estimat Glomerular Filtration Rate [Pending], Glucose Level [Pending], Calcium Level [Pending] Height (Feet): 5 Height (Inches): 6.00 Weight (Pounds): 137 General Appearance: alert EENT: normal ENT inspection Neck: supple Cardiovascular: normal rate Respiratory/Chest: decreased breath sounds Abdomen: normal bowel sounds, non tender, soft Extremities: non-tender Franky Mittal MD Aug 07, 2019 10:37
[2019-08-07 10:46] LABS: ANION GAP 13 mmol/L (5-15); BLOOD UREA NITROGEN 18 mg/dL (7-18); CARBON DIOXIDE 23 MMOL/L (21-32); CHLORIDE 100 MMOL/L (98-107); CREATININE 0.6 MG/DL (0.55-1.30); SODIUM 136 MMOL/L (136-145)
[2019-08-07 12:00] VITALS: BP 120/66
--- NOTE | 2019-08-07 12:42 | Pulmonology Progress Note ---
Assessment/Plan Problems: (1) Combative behavior (2) Failure to thrive in adult (3) Psychosis (4) Advanced dementia (5) Parkinson disease Assessment/Plan all reviewed, Remeron was increased and Zyprexa at bed time calmer now all reviewed doing better, eating better symptomatic treatment dc planning Subjective ROS Limited/Unobtainable: No Constitutional: Reports: no symptoms HEENT: Repors: no symptoms Allergies: Coded Allergies: PENICILLINS (Verified Allergy, Unknown, 07/24/19) Objective Last 24 Hour Vital Signs Date Time Temp Pulse Resp B/P (MAP) Pulse Ox O2 Delivery O2 Flow Rate FiO2 08/07/19 08:00 97.0 77 20 151/82 (105) 96 08/07/19 04:00 97.9 84 20 128/74 (92) 84 08/07/19 00:00 98.0 98 20 140/90 (107) 96 08/06/19 22:00 98.4 98 20 110/69 (83) 95 08/06/19 21:00 Room Air 08/06/19 20:00 98.4 98 20 110/69 (83) 95 08/06/19 16:00 97.9 85 20 154/96 (115) 96 Intake and Output 08/06/19 08/07/19 19:00 07:00 Intake Total 120 ml Balance 120 ml Intake Oral 120 ml # Voids 1 1 Objective General Appearance: WD/WN HEENT: normocephalic, anicteric Respiratory/Chest: chest wall non-tender, lungs clear Cardiovascular: normal peripheral pulses, normal rate Abdomen: normal bowel sounds, soft, non tender Genitourinary: normal external genitalia Laboratory Tests 08/07/19 09:00: White Blood Count 9.2, Red Blood Count 4.94, Hemoglobin 13.9, Hematocrit 40.6, Mean Corpuscular Volume 82, Mean Corpuscular Hemoglobin 28.2, Mean Corpuscular Hemoglobin Concent 34.4, Red Cell Distribution Width 12.4, Platelet Count 115L, Mean Platelet Volume 10.7H, Neutrophils (%) (Auto) 75.8H, Lymphocytes (%) (Auto ) 15.7L, Monocytes (%) (Auto) 7.2, Eosinophils (%) (Auto) 0.6, Basophils (%) ( Auto) 0.7, Sodium Level 136, Potassium Level 3.0L, Chloride Level 100, Carbon Dioxide Level 23, Anion Gap 13, Blood Urea Nitrogen 18, Creatinine 0.6, Estimat Glomerular Filtration Rate > 60, Glucose Level 96, Calcium Level 9.0 Current Medications Medications (Trade) Dose Ordered Sig/Julian Route PRN Reason Start Time Stop Time Status Last Admin Dose Admin Acetaminophen (Tylenol) 650 mg Q4H PRN ORAL fever/mild pain 08/04/19 15:15 08/23/19 19:14 Carbidopa/Levodopa (Sinemet 25/100) 1 tab THREE TIMES A DAY ORAL 07/25/19 09:00 08/24/19 08:59 08/07/19 09:52 Clonidine HCl (Catapres TTS-1) 1 patch QWEEK TDERMAL 07/29/19 18:00 10/27/19 17:59 08/05/19 17:58 Clonidine HCl (Catapres Tab) 0.1 mg Q4H PRN ORAL For High Blood Pressure 07/29/19 09:00 10/27/19 08:59 08/03/19 20:55 Dextrose (Dextrose 50%) 25 ml Q30M PRN IV Hypoglycemia 07/24/19 19:15 10/22/19 19:14 Dextrose (Dextrose 50%) 50 ml Q30M PRN IV Hypoglycemia 07/24/19 19:15 10/22/19 19:14 Heparin Sodium (Porcine) (Heparin 5000 units/ml) 5,000 units EVERY 12 HOURS SUBQ 07/24/19 21:00 09/07/19 20:59 07/31/19 21:51 Lorazepam (Ativan 2mg/ml 1ml) 1 mg Q6HR PRN IM agitation 08/06/19 19:30 08/13/19 19:29 08/07/19 02:36 Mirtazapine (Remeron) 30 mg BEDTIME ORAL 07/30/19 21:00 10/28/19 20:59 08/04/19 20:09 Olanzapine (ZyPREXA) 2.5 mg BEDTIME ORAL 07/31/19 21:00 09/14/19 20:59 08/04/19 20:09 Tamsulosin HCl (Flomax) 0.4 mg DAILY ORAL 07/25/19 09:00 08/24/19 08:59 08/07/19 09:54 Harinder Elena MD Aug 07, 2019 12:42
--- NOTE | 2019-08-07 15:35 | Internal Med Progress Note ---
Subjective Date of Service: Aug 07, 2019 Physician Name Arturo Pratt Attending Physician Rodney Tapia MD Current Medications Medications (Trade) Dose Ordered Sig/Julian Route PRN Reason Start Time Stop Time Status Last Admin Dose Admin Acetaminophen (Tylenol) 650 mg Q4H PRN ORAL fever/mild pain 08/04/19 15:15 08/23/19 19:14 Carbidopa/Levodopa (Sinemet 25/100) 1 tab THREE TIMES A DAY ORAL 07/25/19 09:00 08/24/19 08:59 08/07/19 09:52 Clonidine HCl (Catapres TTS-1) 1 patch QWEEK TDERMAL 07/29/19 18:00 10/27/19 17:59 08/05/19 17:58 Clonidine HCl (Catapres Tab) 0.1 mg Q4H PRN ORAL For High Blood Pressure 07/29/19 09:00 10/27/19 08:59 08/03/19 20:55 Dextrose (Dextrose 50%) 25 ml Q30M PRN IV Hypoglycemia 07/24/19 19:15 10/22/19 19:14 Dextrose (Dextrose 50%) 50 ml Q30M PRN IV Hypoglycemia 07/24/19 19:15 10/22/19 19:14 Heparin Sodium (Porcine) (Heparin 5000 units/ml) 5,000 units EVERY 12 HOURS SUBQ 07/24/19 21:00 09/07/19 20:59 07/31/19 21:51 Lorazepam (Ativan 2mg/ml 1ml) 1 mg Q6HR PRN IM agitation 08/06/19 19:30 08/13/19 19:29 08/07/19 02:36 Mirtazapine (Remeron) 30 mg BEDTIME ORAL 07/30/19 21:00 10/28/19 20:59 08/04/19 20:09 Olanzapine (ZyPREXA) 2.5 mg BEDTIME ORAL 07/31/19 21:00 09/14/19 20:59 08/04/19 20:09 Tamsulosin HCl (Flomax) 0.4 mg DAILY ORAL 07/25/19 09:00 08/24/19 08:59 08/07/19 09:54 Allergies: Coded Allergies: PENICILLINS (Verified Allergy, Unknown, 07/24/19) ROS Limited/Unobtainable: No Constitutional: Reports: no symptoms HEENT: Reports: no symptoms Cardiovascular: Reports: no symptoms Respiratory: Reports: no symptoms Gastrointestinal/Abdominal: Reports: no symptoms Genitourinary: Reports: no symptoms Neurologic/Psychiatric: Reports: no symptoms Subjective 79 YO F with history of Lewey Body dementia, admitted with altered mental status and increased aggression. Cover for Int Med-Dr Tapia. Pulled out IV. S/P endoscopy 07/31/19 Objective Last Vital Signs Date Time Temp Pulse Resp B/P (MAP) Pulse Ox O2 Delivery O2 Flow Rate FiO2 08/07/19 08:00 97.0 77 20 151/82 (105) 96 08/06/19 21:00 Room Air 07/31/19 11:55 6 Laboratory Tests Test 08/07/19 09:00 White Blood Count 9.2 K/UL (4.8-10.8) Red Blood Count 4.94 M/UL (4.20-5.40) Hemoglobin 13.9 G/DL (12.0-16.0) Hematocrit 40.6 % (37.0-47.0) Mean Corpuscular Volume 82 FL (80-99) Mean Corpuscular Hemoglobin 28.2 PG (27.0-31.0) Mean Corpuscular Hemoglobin Concent 34.4 G/DL (32.0-36.0) Red Cell Distribution Width 12.4 % (11.6-14.8) Platelet Count 115 K/UL (150-450) L Mean Platelet Volume 10.7 FL (6.5-10.1) H Neutrophils (%) (Auto) 75.8 % (45.0-75.0) H Lymphocytes (%) (Auto) 15.7 % (20.0-45.0) L Monocytes (%) (Auto) 7.2 % (1.0-10.0) Eosinophils (%) (Auto) 0.6 % (0.0-3.0) Basophils (%) (Auto) 0.7 % (0.0-2.0) Sodium Level 136 MMOL/L (136-145) Potassium Level 3.0 MMOL/L (3.5-5.1) L Chloride Level 100 MMOL/L (98-107) Carbon Dioxide Level 23 MMOL/L (21-32) Anion Gap 13 mmol/L (5-15) Blood Urea Nitrogen 18 mg/dL (7-18) Creatinine 0.6 MG/DL (0.55-1.30) Estimat Glomerular Filtration Rate > 60 mL/min (>60) Glucose Level 96 MG/DL (74-106) Calcium Level 9.0 MG/DL (8.5-10.1) Intake and Output 08/06/19 08/07/19 19:00 07:00 Intake Total 120 ml Balance 120 ml Intake Oral 120 ml # Voids 1 1 Objective PHYSICAL EXAMINATION: GENERAL: The patient is awake, responsive, no acute distress, but confused and disoriented. HEENT: Head and neck examination, pupils are equal and reactive to light. Extraocular movements intact. Neck was supple. No JVD. LUNGS: Good air entry. No wheezing or rales. HEART: S1 and S2. Regular rhythm. No gallops. ABDOMEN: Soft, nondistended, nontender. Positive bowel sounds. EXTREMITIES: No cyanosis, clubbing, or edema. NEUROLOGIC: Cranial nerves II through XII grossly normal. The patient moving all the extremities. Gait was not assessed due to the patient's status. RECTAL/GENITOURINARY: Refused and deferred. PSYCHIATRIC: Mood and affect is intact Assessment/Plan Assessment/Plan ASSESSMENT: 1. Altered mental status/encephalopathy. 2. Combative/aggressive behavior. 3. Lewey body dementia. 4. Parkinson disease. 5. Failure to thrive. 6. 07/31/19 EGD=gastritis PLAN: 1. Admit the patient to medical floor. 2. psychiatry consultation=Dr Coburn 3. Haldol as needed for agitation. 4. Resume home medication. 5. DVT prophylaxis. 6. Heparin subcutaneous. 7. COVID 19 test neg 8. start pantoprazole; GI=Dr Mittal 9. Discharge planning: Unable to return to [facility]; D/C to [facility] when bed available Arturo Pratt MD Aug 07, 2019 15:35
[2019-08-07 16:00] VITALS: BP 148/75
--- NOTE | 2019-08-07 22:59 | Progress Note ---
DATE: 08/07/2019 SUBJECTIVE: Patient is in bed, doing well. No behavior issues noted. Patient is calm and cooperative. No behavior issues noted. Manageable. She is being discharged. MENTAL STATUS EXAMINATION: Patient is alert, disoriented. Mood is neutral. Affect is flat. Thought process is concrete. Thought content, no suicidal or homicidal ideation. ASSESSMENT: Stable. PLAN: 1. We will continue current medications. 2. Provide the patient with reality orientation and supportive therapy. Nguyễn Coburn M.D. DR: SEBASTIAN JOB#: [id number] CC:
--- NOTE | 2019-08-09 18:07 | Discharge Summary ---
Discharge Summary Discharge Summary _ DATE OF ADMISSION: 07/24/2019 DATE OF DISCHARGE: 08/07/2019 DISCHARGED BY: Dr. Tapia REASON FOR ADMISSION: 79 years old female with past medical history of psychiatric disorder, dementia , with combative behavior, presented with altered mental status, and refusing to take her medication. Upon evaluation laboratory work-up revealed no leukocytosis , stable hemoglobin , hematocrit and platelet count. Stable electrolytes . Lactic acid 1.4. Stable LFT. BUN 22 , creatinine 0.6 Troponin 0.035, pro BNP 187. EKG revealed sinus rhythm , no acute ischemic changes. Urinalysis revealed no evidence of urinary tract infection. Chest x-ray revealed no acute cardiopulmonary pathology. Patient admitted for dehydration and altered mental status CONSULTANTS: pulmonary Dr. Elena GI specialist Dr. Mittal psychiatrist Dr. Coburn [facility]: Patient admitted to medical surgical floor and started IV fluids. Renal parameters were closely monitored. DVT prophylaxis provided. Psychiatrist seen and evaluated patient. Psychiatric medication regimen was optimized as per psychiatrist Patient undergone bedside swallow evaluation , which revealed dysphagia and silent aspiration risk. Speech therapist recommended video swallow evaluation and skilled dysphagia management. Diet texture was downgraded and provided with strict aspiration precaution and one-to-one feeding. Patient undergone upper endoscopy with biopsy on 07/30 which revealed atrophic gastritis , status post biopsy. Biopsy demonstrated mild chronic gastritis, no H. pylori. No intestinal metaplasia, dysplasia or malignancy. Appetite stimulant was added to patient medication regimen. Calorie count implemented. GI specialist recommended to hold GI procedures at this time. Patient sustained facial laceration on 08/02 , status post repair of laceration. CT of the head demonstrated chronic and age-related changes , but was negative for acute intracranial bleeding or mass-effect. GI prophylaxis provided. Home medication continued. Blood cultures were negative. Patient was tested fo novel coronavirus, which came back non-detected. Supportive care provided. Patient clinically stabilized and was ready for discharge FINAL DIAGNOSES: Dementia with behavioral disturbances Lewy body dementia Acute kidney injury with prerenal azotemia and dehydration Altered mental status/encephalopathy Combative/aggressive behavior Suspected COVID 19 infection - ruled out Major depressive disorder Parkinson disease Failure to thrive in adult Combative behavior Psychosis Status post EGD Atrophic gastritis DISCHARGE MEDICATIONS: List of medication was sent to accepting facility DISCHARGE INSTRUCTIONS: [facility] Follow up with medical doctor at the facility. I have been assigned to dictate discharge summary for this account. I was not involved in the patient's management. Meaghan Mendoza NP Aug 09, 2019 18:06
--- NOTE | 2019-08-12 08:00 | Coder Physician Query ---
Clarification is required for compliance, coding accuracy, and to reflect severity of illness for this patient Dear Dr. 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 Upon evaluation laboratory work-up revealed no leukocytosis , stable hemoglobin , hematocrit and platelet count. Blood cultures were negative. Patient was tested fo novel coronavirus, which came back non-detected. FINAL DIAGNOSES: Dementia with behavioral disturbances Lewy body dementia Acute kidney injury with prerenal azotemia and dehydration Altered mental status/encephalopathy Combative/aggressive behavior Suspected COVID 19 infection - ruled out Major depressive disorder,Parkinson disease Failure to thrive in adult, Combative behavior Psychosis , Status post EGD, Atrophic gastritis Please indicate the underlying cause of the ENCEPHALOPATHY condition below: Toxic metabolic encephalopathy PHYSICIAN RESPONSE: MARIBEL VELAZQUEZ M.D. Date Please also document in your Progress Notes and/or Discharge Summary and indicate if the condition was present on admission. MTDD
== END 2019-08-07 19:30 | DRG 52 ==
LOC: EDBD 17:30 → EMR 17:45 → 4E 18:45 → EDBEDREQ 18:53
PROC: 0DB78ZX Excision of Stomach, Pylorus, Via Natural or Artificial Opening Endoscopic, Diagnostic (ICD-10-PCS; principal; 2019-07-31 11:12)
DX: G92 Toxic encephalopathy (principal); E86.0 Dehydration; F29 Unspecified psychosis not due to a substance or known physiological condition; R62.7 Adult failure to thrive; Z68.24 Body mass index [BMI] 24.0-24.9, adult; F02.81 Dementia in other diseases classified elsewhere, unspecified severity, with behavioral disturbance; R63.0 Anorexia; E87.6 Hypokalemia; Z91.14 Patient's other noncompliance with medication regimen; E87.0 Hyperosmolality and hypernatremia; N17.9 Acute kidney failure, unspecified; Z88.0 Allergy status to penicillin; K29.40 Chronic atrophic gastritis without bleeding; G31.83 Neurocognitive disorder with Lewy bodies; F32.9 Major depressive disorder, single episode, unspecified; R13.10 Dysphagia, unspecified
CPT/HCPCS: 36415; 70450; 71045; 80048; 80053; 80061; 81003; 82553; 83036; 83605; 83690; 83735; 83880; 84100; 84443; 84484; 85007; 85025; 85651; 86140; 87040; 87081; 87635; 93005; 94003; 94150; 96360; 99285; J7030; J8499